=== PATIENT | female | born 1995 | race Caucasian/White ===

== ENCOUNTER → 2016-11-02 | Outpatient (CLI) | payer MEDICAID ==
[~2016-11-02] MED LIST: ALPRAZOLAM0.25 M2 PO; ALPRAZOLAM0.5 M3 PO; AMOXIL500 MG PO; BENZONATATE100 MG PO; CIPRO 500MG TA500 MG PO; CIPROFLOXACIN500 MG PO; CLARITIN-D 12HR1 T12 PO; ESCITALOPRAM10 M1 PO; FERROUS SULFATE65 MG PO; FLAGYL 250MG.250 MG PO; FLAGYL500 M1 PO; FLEXERIL10 MG PO; HEARTBURN; HYDROCHLOROTHIA25 M1 PO; IRON TABLETS325 MG PO; KEFLEX 500MG.500 MG PO; LETAIRIS5 MG PO; MOTRIN400 MG PO; NAPROSYN 375MG375 MG PO; NOMEDS XX; PNV PRENATAL PL1 TAB PO; PRENATAL PLUS1 TA1 PO; PRILOSEC OTC20 MG PO; PROVENTIL0.09 MG/A1 IH; SILDENAFIL CITR20 MG PO; TESSALON PERLE100 M1 PO; ZITHROMAX Z-PA250 M2 PO; ZOFRAN4 MG PO
[2016-11-02 17:21] LABS: AMPHETAMINES/METAMPHETAMINES NEGATIVE ng/mL (<1000)
== END ==
LOC: LAB 16:35
PROVIDERS: Emergency Medicine
DX: Z79.899 Other long term (current) drug therapy (principal)

== ENCOUNTER → 2017-01-02 | Outpatient (CLI) | payer MEDICAID ==
[~2017-01-02] MED LIST changes: +GABAPENTIN300 M1 PO; +POTASSIUM CHLO10 MEQ PO
[2017-01-02 16:28] LABS: AMPHETAMINES/METAMPHETAMINES NEGATIVE ng/mL (<1000)
== END ==
LOC: LAB 15:40
PROVIDERS: Emergency Medicine
DX: Z79.899 Other long term (current) drug therapy (principal)

== ENCOUNTER 2017-01-09 00:52 | Emergency (ER) | payer MEDICAID ==
[~2017-01-09] VITALS: Ht 172.7 cm; Wt 100.2 kg
[~2017-01-09 00:52] MED LIST changes: -GABAPENTIN300 M1 PO; -POTASSIUM CHLO10 MEQ PO
[2017-01-09] MEDS ORDERED: POTASSIUM CHLO10 MEQ PO (01:03)
[2017-01-09] MEDS ORDERED: GABAPENTIN300 M1 PO (01:03)
--- NOTE | 2017-01-09 01:16 | Emergency Room Report ---
History of Present Illness Time Seen by MD Edwards Presenting Problem in Triage Pt arrived:Walked Presenting Problem:PT STATES SHE "HAS PULMONARY HYPERTENSION AND SHE STOPPED TAKING HER MEDS A WHILE BACK, AND HAS NOW RESUMED THEM" PT STATES SHE IS HAVING EXERTIONAL SOB. 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 N Clinical Suspician of Infection? N Mental Status: 1 - Regular (Normal Baseline) Sepsis Risk:Possible Sepsis Risk Have you (or family members/close friends) recently traveled outside the [place]? N If Yes, where/when: Have you had exposure to infectious disease within the past month? TB? Other? Specify: Source patient, RN notes reviewed, family, old records Exam Limitations no limitations Comment pt with known pul htn but has been noncompliant with meds and follow up - no fever or chest pain Cardiac Chest Pain Chest pain indicative of cardiac No Timing/Duration this evening Severity moderate ALLERGIES Coded Allergies: adhesive (Severe, S-BLISTERING WELTS 08/25/16) Home Medications Active Scripts ALBUTEROL (Proventil Hfa Inhaler) 1-2 PUFF IH Q4-6H PRN #1 CAN Ref 1 Prov: 08/25/16 Reported Medications Alprazolam 0.5 MG PO BID #60 Sildenafil Citrate (Sildenafil) 20 MG PO TID 30 Days Ambrisentan (Letairis) 5 MG PO DAILY 30 Days Escitalopram Oxalate 10 MG PO DAILY 30 Days Potassium Chloride (POTASSIUM CHLORIDE 10mEq CAP) 10 MEQ PO PRN PRN IF TAKING LASIX #60 Gabapentin 300 MG PO BID #90 History Medical History General CAD? No Angina: No [place]: No Hypertension? No Hyperlipidemia? No CHF? No DVT? No PE? No COPD? No Asthma? No Anemia? No GERD? No Gastric ulcers? No GI Bleed? No Hernia? No Thyroid Problems? No Hypothyroidism? No CVA? No Seizures? No Diabetes? No Renal Insuffiency? No End Stage Renal Disease? No UTI? No Stones? No BPH? No GB Disease: No Nephritic Syndrome? No Asplenia? No Hepatitis? No Sickle Cell Disease? No Arthritis? No Migraines? No Cataracts? No Glaucoma? No MRSA? No HIV? No TB? No Anxiety? No Depression? No Cancer? No More? 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 Respiratory see HPI, denies cough, shortness of breath, denies wheezing Cardiovascular see HPI, denies chest pain, palpitations, denies syncope Gastrointestinal denies diarrhea, denies vomiting Genitourinary denies: dysuria, frequency, hesitancy, hematuria. Musculoskeletal denies back pain, denies joint pain, denies joint swelling, denies neck pain Skin denies rash Psychiatric/Neurological denies headache, denies seizure Physical Exam Vital Signs Vital Signs Date Time Temp Pulse Resp B/P Pulse O2 O2 Flow FiO2 Ox Delivery Rate 01/09 0236 118 20 123/67 97 01/09 0148 98.7 117 20 129/70 98 01/09 0058 98.7 104 20 143/86 98 - WBC >12,000 or <4,000 or 10% bands? 2 or more SIRS Criteria Met? B/P:123/67 MAP:105 Creatinine >2.0? UA output<0.5ml/kg/hr for 2 hrs? Platelet count >100,000? Lactate >2.0mmol/1? INR >1.2 or PTT > than 60 sec? Evidence of Organ Dysfunction? Provider documented clinical suspician of infection? N Sepsis Criteria Count: 2 Sepsis Risk: Possible Sepsis Risk General Appearance no apparent distress Eye Exam - bilateral eye PERRL, bilateral eye EOMI Ear, Nose, Throat normal ENT inspection Neck supple Respiratory Status No: respiratory distress. Lung Sounds bilateral: lungs clear. 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 No Results/Orders Laboratory Tests 01/09/17114: Sodium 140, Potassium 3.6, Chloride 106, Carbon Dioxide 24, BUN 13, Creatinine 1.0, Estimated Creat Clear 142, Estimated GFR (MDRD) 71, Glucose 85, Calcium 9.2 , Total Bilirubin 0.4, AST 9 L, ALT 22, Alkaline Phosphatase 80, Creatine Kinase 55, CK-MB (CK-2) Rel Index 2.9, CK and CKMB Interp 1.6, Troponin I 0.23 H, Total Protein 7.3, Albumin 3.8, Globulin 3.5 H, Albumin/Globulin Ratio 1.1, WBC 11.1, RBC 5.20, Hgb 12.9, Hct 41.8, MCV 80.3 L, RDW 16.4, Plt Count 200, MPV 9.9, Gran % 58.4, Gran # 6.5, Lymphocytes % 32.2, Monocytes % 5.7, Eosinophils % 2.9, Basophils % 0.8, Lymphocytes # 3.6, Monocytes # 0.6, Eosinophils # 0.3, Basophils # 0.1, PUBS MCHC 30.6 L, MCH 24.6 L, Urine Color YELLOW, Urine Appearance CLEAR, Urine pH 6.0, Ur Specific [place] 1.015, Urine Protein NEGATIVE, Urine Ketones NEGATIVE, Urine Blood TRACE-INTACT, Urine Nitrate NEGATIVE, Urine Bilirubin NEGATIVE, Urine Urobilinogen 1.0, Ur Leukocyte Esterase 1+ H, Urine RBC 3-5, Urine WBC 3-5, Ur Squamous Epith Cells 3-5, Urine Bacteria 1+, Urine Glucose NEGATIVE Current Medication Orders Sig/Kay Start time Last Medication Dose Route Stop Time Status Admin Sodium Chloride 10 ML PRN PRN 01/09 115 AC IV 01/10 105 Orders Procedure Date/time Status ELECTROCARDIOGRAM REQUEST 01/09 105 Active CHEST(2 VIEWS-NOT PORTABLE) 01/09 105 Active IV SALINE LOCK 01/09 105 Active URINALYSIS/COMPLETE 01/09 105 Complete URINE 01/09 105 Complete COMPLETE METABOLIC PANEL 01/09 105 Complete CBC WITH AUTO DIFF 01/09 105 Complete CARDIAC ENZYMES 01/09 105 Complete CM/EKG CM/comfort filler Rhythm Sinus Tachycardia EKG non-spec. ST/Twave chgs XRAY/CT/US XRAY/CT/US XRAY chest XR interpretation by reviewed by me Xray Results abnormal Departure Departure Time of Disposition 258 Disposition DC Home or Self Care(routine) Clinical Impression Primary Impression: Pulmonary hypertension Condition STABLE Referrals Jos FUNEZ,Jayant Zimmer (Family) Patient Instructions Pulmonary Hypertension -- Adult Additional Instructions use meds and call pcp for follow up Discharge Counseling Counseled pt/family regarding diagnosis, test results, follow up needs ED Critical Care Critical Care No at 0301
--- NOTE | 2017-01-09 01:16 | Emergency Room Report ---
History of Present Illness Time Seen by MD Edwards Presenting Problem in Triage Pt arrived:Walked Presenting Problem:PT STATES SHE "HAS PULMONARY HYPERTENSION AND SHE STOPPED TAKING HER MEDS A WHILE BACK, AND HAS NOW RESUMED THEM" PT STATES SHE IS HAVING EXERTIONAL SOB. 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 N Clinical Suspician of Infection? N Mental Status: 1 - Regular (Normal Baseline) Sepsis Risk:Possible Sepsis Risk Have you (or family members/close friends) recently traveled outside the [place]? N If Yes, where/when: Have you had exposure to infectious disease within the past month? TB? Other? Specify: Source patient, RN notes reviewed, family, old records Exam Limitations no limitations Comment pt with known pul htn but has been noncompliant with meds and follow up - no fever or chest pain Cardiac Chest Pain Chest pain indicative of cardiac No Timing/Duration this evening Severity moderate ALLERGIES Coded Allergies: adhesive (Severe, S-BLISTERING WELTS 08/25/16) Home Medications Active Scripts ALBUTEROL (Proventil Hfa Inhaler) 1-2 PUFF IH Q4-6H PRN #1 CAN Ref 1 Prov: 08/25/16 Reported Medications Alprazolam 0.5 MG PO BID #60 Sildenafil Citrate (Sildenafil) 20 MG PO TID 30 Days Ambrisentan (Letairis) 5 MG PO DAILY 30 Days Escitalopram Oxalate 10 MG PO DAILY 30 Days Potassium Chloride (POTASSIUM CHLORIDE 10mEq CAP) 10 MEQ PO PRN PRN IF TAKING LASIX #60 Gabapentin 300 MG PO BID #90 History Medical History General CAD? No Angina: No [place]: No Hypertension? No Hyperlipidemia? No CHF? No DVT? No PE? No COPD? No Asthma? No Anemia? No GERD? No Gastric ulcers? No GI Bleed? No Hernia? No Thyroid Problems? No Hypothyroidism? No CVA? No Seizures? No Diabetes? No Renal Insuffiency? No End Stage Renal Disease? No UTI? No Stones? No BPH? No GB Disease: No Nephritic Syndrome? No Asplenia? No Hepatitis? No Sickle Cell Disease? No Arthritis? No Migraines? No Cataracts? No Glaucoma? No MRSA? No HIV? No TB? No Anxiety? No Depression? No Cancer? No More? 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 Respiratory see HPI, denies cough, shortness of breath, denies wheezing Cardiovascular see HPI, denies chest pain, palpitations, denies syncope Gastrointestinal denies diarrhea, denies vomiting Genitourinary denies: dysuria, frequency, hesitancy, hematuria. Musculoskeletal denies back pain, denies joint pain, denies joint swelling, denies neck pain Skin denies rash Psychiatric/Neurological denies headache, denies seizure Physical Exam Vital Signs Vital Signs Date Time Temp Pulse Resp B/P Pulse O2 O2 Flow FiO2 Ox Delivery Rate 01/09 0236 118 20 123/67 97 01/09 0148 98.7 117 20 129/70 98 01/09 0058 98.7 104 20 143/86 98 - WBC >12,000 or <4,000 or 10% bands? 2 or more SIRS Criteria Met? B/P:123/67 MAP:105 Creatinine >2.0? UA output<0.5ml/kg/hr for 2 hrs? Platelet count >100,000? Lactate >2.0mmol/1? INR >1.2 or PTT > than 60 sec? Evidence of Organ Dysfunction? Provider documented clinical suspician of infection? N Sepsis Criteria Count: 2 Sepsis Risk: Possible Sepsis Risk General Appearance no apparent distress Eye Exam - bilateral eye PERRL, bilateral eye EOMI Ear, Nose, Throat normal ENT inspection Neck supple Respiratory Status No: respiratory distress. Lung Sounds bilateral: lungs clear. 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 No Results/Orders Laboratory Tests 01/09/17114: Sodium 140, Potassium 3.6, Chloride 106, Carbon Dioxide 24, BUN 13, Creatinine 1.0, Estimated Creat Clear 142, Estimated GFR (MDRD) 71, Glucose 85, Calcium 9.2 , Total Bilirubin 0.4, AST 9 L, ALT 22, Alkaline Phosphatase 80, Creatine Kinase 55, CK-MB (CK-2) Rel Index 2.9, CK and CKMB Interp 1.6, Troponin I 0.23 H, Total Protein 7.3, Albumin 3.8, Globulin 3.5 H, Albumin/Globulin Ratio 1.1, WBC 11.1, RBC 5.20, Hgb 12.9, Hct 41.8, MCV 80.3 L, RDW 16.4, Plt Count 200, MPV 9.9, Gran % 58.4, Gran # 6.5, Lymphocytes % 32.2, Monocytes % 5.7, Eosinophils % 2.9, Basophils % 0.8, Lymphocytes # 3.6, Monocytes # 0.6, Eosinophils # 0.3, Basophils # 0.1, PUBS MCHC 30.6 L, MCH 24.6 L, Urine Color YELLOW, Urine Appearance CLEAR, Urine pH 6.0, Ur Specific [place] 1.015, Urine Protein NEGATIVE, Urine Ketones NEGATIVE, Urine Blood TRACE-INTACT, Urine Nitrate NEGATIVE, Urine Bilirubin NEGATIVE, Urine Urobilinogen 1.0, Ur Leukocyte Esterase 1+ H, Urine RBC 3-5, Urine WBC 3-5, Ur Squamous Epith Cells 3-5, Urine Bacteria 1+, Urine Glucose NEGATIVE Current Medication Orders Sig/Kay Start time Last Medication Dose Route Stop Time Status Admin Sodium Chloride 10 ML PRN PRN 01/09 115 AC IV 01/10 105 Orders Procedure Date/time Status ELECTROCARDIOGRAM REQUEST 01/09 105 Active CHEST(2 VIEWS-NOT PORTABLE) 01/09 105 Active IV SALINE LOCK 01/09 105 Active URINALYSIS/COMPLETE 01/09 105 Complete URINE 01/09 105 Complete COMPLETE METABOLIC PANEL 01/09 105 Complete CBC WITH AUTO DIFF 01/09 105 Complete CARDIAC ENZYMES 01/09 105 Complete CM/EKG CM/porcelain waxer Rhythm Sinus Tachycardia EKG non-spec. ST/Twave chgs XRAY/CT/US XRAY/CT/US XRAY chest XR interpretation by reviewed by me Xray Results abnormal Departure Departure Time of Disposition 258 Disposition DC Home or Self Care(routine) Clinical Impression Primary Impression: Pulmonary hypertension Condition STABLE Referrals Jos FUNEZ,Jayant Zimmer (Family) Patient Instructions Pulmonary Hypertension -- Adult Additional Instructions use meds and call pcp for follow up Discharge Counseling Counseled pt/family regarding diagnosis, test results, follow up needs ED Critical Care Critical Care No at 0301
[2017-01-09 01:54] LABS: URINE BILIRUBIN - DIPSTICK NEGATIVE (NEG); URINE BLOOD TRACE-INTACT (NEG)
[2017-01-09 02:01] LABS: LYMPH # 3.6 K/mm3 (0.7-4.5); LYMPH % 32.2 % (10-50.0)
[2017-01-09 02:05] LABS: HEMOGLOBIN 12.9 g/dL (12.2-16.2)
[2017-01-09 03:07] VITALS: BP 124/70
--- NOTE | 2017-01-09 07:54 | RADIOLOGY REPORT PS360 ---
CHEST(2 VIEWS-NOT PORTABLE) HISTORY: Shortness of breath SOB ORDERING PHYSICIAN: Asher Arguello MD PATIENT AGE: 21 years COMPARISON: 08/25/2016 FINDINGS: The heart size is unremarkable. The delma are prominent bilaterally. This is likely related to underlying pulmonary vascularity as this did have a similar appearance on older exam of 04/29/2011. 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 This could result and some overcirculation. No lobar consolidation or collapse. No acute bony anomalies. IMPRESSION: 1. Prominent delma which is felt to be related to prominent pulmonary arterial vasculature. 2. 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 This may result in dyspnea, chest pain, and palpitations. Clinical correlation and cardiology consult suggested.
== END 2017-01-09 03:08 | disposition home or self-care (01) ==
LOC: ER 00:52
PROVIDERS: Emergency Medicine
DX: I27.2 Other secondary pulmonary hypertension (principal); Z72.0 Tobacco use

== ENCOUNTER → 2017-04-01 | Outpatient (CLI) | payer MEDICAID ==
[~2017-04-01] MED LIST changes: +GABAPENTIN300 M1 PO; +POTASSIUM CHLO10 MEQ PO
[2017-04-01 20:20] LABS: AMPHETAMINES/METAMPHETAMINES NEGATIVE ng/mL (<1000)
== END ==
LOC: LAB 16:10
PROVIDERS: Emergency Medicine
DX: Z79.899 Other long term (current) drug therapy (principal)

== ENCOUNTER 2017-05-09 22:18 | Emergency (ER) | payer MEDICAID ==
[~2017-05-09] VITALS: Ht 172.7 cm; Wt 101.2 kg
--- NOTE | 2017-05-09 22:35 | Emergency Room Report ---
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 N Clinical Suspician of Infection? N Mental Status: 1 - Regular (Normal Baseline) Sepsis Risk:Low Sepsis Risk Have you (or family members/close friends) recently traveled outside the [place]? N If Yes, where/when: Have you had exposure to infectious disease within the past month? N TB? Other? Specify: Source patient, RN notes reviewed, family, old records Exam Limitations no limitations Comment lt flank pain with nausea today with no diarrhea Cardiac Chest Pain Chest pain indicative of cardiac No Timing/Duration this evening Severity moderate ALLERGIES Coded Allergies: adhesive (Severe, S-BLISTERING WELTS 08/25/16) Home Medications Active Scripts ALBUTEROL (Proventil Hfa Inhaler) 1-2 PUFF IH Q4-6H PRN #1 CAN Ref 1 Prov: 08/25/16 Reported Medications Alprazolam 0.5 MG PO BID #60 Sildenafil Citrate (Sildenafil) 20 MG PO TID 30 Days Ambrisentan (Letairis) 5 MG PO DAILY 30 Days Escitalopram Oxalate 10 MG PO DAILY 30 Days Potassium Chloride (POTASSIUM CHLORIDE 10mEq CAP) 10 MEQ PO PRN PRN IF TAKING LASIX #60 Gabapentin 300 MG PO BID #90 History Medical History General CAD? No Angina: No [place]: No Hypertension? No Hyperlipidemia? No CHF? No DVT? No PE? No COPD? No Asthma? No Anemia? No GERD? No Gastric ulcers? No GI Bleed? No Hernia? No Thyroid Problems? No Hypothyroidism? No CVA? No Seizures? No Diabetes? No Renal Insuffiency? No End Stage Renal Disease? No UTI? No Stones? No BPH? No GB Disease: No Nephritic Syndrome? No Asplenia? No Hepatitis? No Sickle Cell Disease? No Arthritis? No Migraines? No Cataracts? No Glaucoma? No MRSA? No HIV? No TB? No Anxiety? No Depression? No Cancer? No More? 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 Respiratory denies cough, denies shortness of breath, denies wheezing Cardiovascular denies chest pain, denies syncope Gastrointestinal see HPI, abdominal pain, denies diarrhea, denies vomiting Genitourinary denies: dysuria, frequency, hesitancy, hematuria. Musculoskeletal denies back pain, denies joint pain, denies joint swelling, denies neck pain Skin denies rash Psychiatric/Neurological denies headache, denies seizure Physical Exam Vital Signs Vital Signs Date Time Temp Pulse Resp B/P Pulse O2 O2 Flow FiO2 Ox Delivery Rate 05/10 0109 100.7 105 18 103/61 96 05/09 2226 100.7 112 18 136/76 94 - WBC >12,000 or <4,000 or 10% bands? 2 or more SIRS Criteria Met? B/P:103/61 MAP:96 Creatinine >2.0? UA output<0.5ml/kg/hr for 2 hrs? Platelet count >100,000? Lactate >2.0mmol/1? INR >1.2 or PTT > than 60 sec? Evidence of Organ Dysfunction? Provider documented clinical suspician of infection? N Sepsis Criteria Count: 1 Sepsis Risk: Low Sepsis Risk General Appearance no apparent distress Eye Exam - bilateral eye PERRL, bilateral eye EOMI Ear, Nose, Throat normal ENT inspection Neck supple Respiratory Status No: respiratory distress. 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 No Results/Orders Laboratory Tests 05/09/172249: Urine Color YELLOW, Urine Appearance CLEAR, Urine pH 6.0, Ur Specific [place] 1.020, Urine Protein 2+ H, Urine Ketones NEGATIVE, Urine Blood 3+ H, Urine Nitrate NEGATIVE, Urine Bilirubin NEGATIVE, Urine Urobilinogen 1.0, Ur Leukocyte Esterase 2+ H, Urine RBC 5-10, Urine WBC 10-20, Urine Bacteria 1+, Urine Mucus 1+, Urine Glucose NEGATIVE 05/09/172248: Sodium 136, Potassium 3.0 L, Chloride 105, Carbon Dioxide 21 L, BUN 8, Creatinine 1.0, Estimated Creat Clear 143, Estimated GFR (MDRD) 71, Glucose 99, Calcium 8.3 L, Total Bilirubin 0.8, AST 8 L, ALT 17, Alkaline Phosphatase 79, Total Protein 6.6, Albumin 3.2 L, Globulin 3.4 H, Albumin/Globulin Ratio 0.9 L, Amylase 19 L, Lipase 60 L, WBC 11.2, RBC 4.71, Hgb 12.0 L, Hct 38.0, MCV 80.6 L, RDW 16.6, Plt Count 121 L, MPV 12.5 H, Gran % 78.7, Gran # 8.8 H, Lymphocytes % 15.6, Monocytes % 5.1, Eosinophils % 0.4, Basophils % 0.3, Lymphocytes # 1.8, Monocytes # 0.6, Eosinophils # 0.1, Basophils # 0.0, PUBS MCHC 31.5 L, MCH 25.4 L Current Medication Orders Sig/Kay Start time Last Medication Dose Route Stop Time Status Admin Sodium Chloride 50 ML .STK-MED ONE 05/10 133 DC IV Ketorolac 0 .STK-MED ONE 05/10 132 DC Tromethamine .ROUTE Ceftriaxone Sodium 1 GM ONCE ONE 05/10 130 AC Sodium Chloride 50 ML IV 05/10 0159 Ketorolac 30 MG ONCE ONE 05/10 130 DC Tromethamine IV 05/10 131 Orders Procedure Date/time Status DIET-NOTHING BY MOUTH 05/[address] ABD & PELVIS W/O CONTRAST 05/10 0003 Active CULTURE, URINE 05/[address] SCAN REQ 05/09 2245 Complete IV SALINE LOCK 05/09 2238 Active LIPASE 05/09 2238 Complete CBC WITH AUTO DIFF 05/09 2238 Complete CHEM 12 PROFILE 05/09 2238 Complete AMYLASE 05/09 2238 Complete URINALYSIS/COMPLETE 05/09 2236 Complete URINE 05/09 2236 Complete XRAY/CT/US XRAY/CT/US CT abdomen, pelvis CT interpretation by discussed w/radiologist Time results known: 131 CT Results abnormal (see report) Departure Departure Time of Disposition 131 Disposition DC Home or Self Care(routine) Clinical Impression Primary Impression: UTI (urinary tract infection) Qualifiers: Urinary tract infection type: acute cystitis Hematuria presence: without hematuria Qualified Code: N30.00 - Acute cystitis without hematuria Condition STABLE Referrals Jos FUNEZ,Jayant Zimmer (Family) Patient Instructions DI for Urinary Tract Infection (UTI) Additional Instructions fluids and use meds and see pcp saturday Discharge Counseling Counseled pt/family regarding diagnosis, test results, medications/RX, follow up needs Prescriptions Current Visit Scripts Ciprofloxacin HCl (Cipro 500MG TAB) 500 MG PO BID #14 TAB ED Critical Care Critical Care No at 0134
[2017-05-09 23:05] LABS: URINE BLOOD 3+ (NEG)
[2017-05-09 23:11] LABS: URINE BILIRUBIN - DIPSTICK NEGATIVE (NEG)
[2017-05-09 23:25] LABS: LYMPH # 1.8 K/mm3 (0.7-4.5); LYMPH % 15.6 % (10-50.0)
[2017-05-10] MEDS ORDERED: CIPRO 500MG TA500 MG PO (01:33)
[2017-05-10 01:54] VITALS: BP 110/68
--- NOTE | 2017-05-10 06:56 | RADIOLOGY REPORT PS360 ---
CT ABD PELVIS W/O CONTRAST CLINICAL INDICATION: Left flank pain, abdominal pain FLANK PAIN ORDERING PHYSICIAN: Asher Arguello MD PATIENT AGE: 21 years COMPARISON: 03/22/2016 TECHNIQUE: Axial images obtained with sagittal and coronal reformats. PROCEDURE: Oral Contrast: None IV Contrast: None . FINDINGS: Lung bases are clear. The liver, gallbladder, spleen, and adrenal glands and pancreas are unremarkable. There are old or at least 2 stones in the left kidney one in the upper pole and one in the lower pole each at approximately 6 mm. There is mild stranding left perinephric renal fat. There is minimal prominence of the proximal aspect of the left ureter with minimal stranding of the proximal periureteral fat. A definite ureteral calculus is not identified. Recently passed stone is a consideration. Urinary bladder has an unremarkable appearance. Small nodes are present in the retroperitoneum on the left nonspecific No evidence of appendicitis, intestinal obstruction, or free air or diverticulitis. There is mild thickening versus nondistention of the descending colon There is a 7 x 6 cm right adnexal mass likely representing an ovarian cyst. There is a 19 be present. There is minimal amount fluid in the cul-de-sac. No acute bony anomalies. IMPRESSION: 1. Left nephrolithiasis with minimal prominence of the left proximal ureter and minimal stranding the left periureteral and perinephric fat which may be related to recently passed ureteral stone or urinary tract infection/polynephritis. 2. 7 cm right cystic adnexal mass consistent with right ovarian cyst. Consider pelvic ultrasound for further evaluation.
== END 2017-05-10 01:56 | disposition home or self-care (01) ==
LOC: ER 22:18
PROVIDERS: Emergency Medicine
DX: N30.00 Acute cystitis without hematuria (principal)

== ENCOUNTER 2017-05-21 14:22 | Emergency (ER) | payer MEDICAID ==
[~2017-05-21] VITALS: Ht 175.3 cm; Wt 101.2 kg
--- NOTE | 2017-05-21 14:58 | [facility] Report ---
See Addendum History of Present Issue Date/Time Seen by Provider 05/21/17 1440 Visit Reason Pt arrived:Walked Presenting Problem:PT C/O SORE THROAT, VOMITING, AND BODYACHES Location if Accident: Onset of symptoms date/time:/ or onset unknown for:MEDICAL HX UNKNOWN Have you (or family members/close friends) recently traveled outside the [place]? N If Yes, where/when: Have you had exposure to infectious disease within the past month? TB? Other? Specify: c/o "I think I have strep". Son tested positive , pt's symptoms started Saturday, 4 days ago and now another child tested positive today w/ several other family members getting seen for same symptoms. Intermittent fever, aches, chills , sore throat, nausea. Vomited once last night and once this morning. nauseated now. Litte girls w/ same symptoms now. Hasn't taken or tried anything for symptoms. Denies difficulty swallowing "just painful". Source patient Exam Limitations no limitations ALLERGIES Coded Allergies: adhesive (Severe, S-BLISTERING WELTS 08/25/16) Home Medications Active Scripts Ciprofloxacin HCl (Cipro 500MG TAB) 500 MG PO BID #14 TAB Prov: 05/10/17 ALBUTEROL (Proventil Hfa Inhaler) 1-2 PUFF IH Q4-6H PRN #1 CAN Ref 1 Prov: 08/25/16 Reported Medications Alprazolam 0.5 MG PO BID #60 Sildenafil Citrate (Sildenafil) 20 MG PO TID 30 Days Ambrisentan (Letairis) 5 MG PO DAILY 30 Days Escitalopram Oxalate 10 MG PO DAILY 30 Days Potassium Chloride (POTASSIUM CHLORIDE 10mEq CAP) 10 MEQ PO PRN PRN IF TAKING LASIX #60 Gabapentin 300 MG PO BID #90 History Medical History General CAD? No Angina: No NM: No Hypertension? No Hyperlipidemia? No CHF? No DVT? No PE? No COPD? No Asthma? No Anemia? No GERD? No Gastric ulcers? No GI Bleed? No Hernia? No Thyroid Problems? No Hypothyroidism? No CVA? No Seizures? No Diabetes? No Renal Insuffiency? No UTI? No Stones? No BPH? No GB Disease: No Nephritic Syndrome? No Asplenia? No Hepatitis? No Sickle Cell Disease? No Arthritis? No Migraines? No Cataracts? No Glaucoma? No MRSA? No HIV? No TB? No Anxiety? No Depression? No Cancer? No More? Yes Additional hx: PULMONARY HYPERTENSION Immunization HX DT/Tetanus Unknown Flu Refused Pneumonia Refuses Surgical Hx Previous Surgery?Y X 1 Family History Family HX Diabetes No CAD No Hypertension Yes Hyperlipidemia No Cancer No TB No Social History Smoking Hx Smoker: Current Every Day Smoker Tobacco: Yes Type Cigarettes Packs/day < 1 Pack Alcohol Alcohol: No Review of Systems All Other Systems Reviewed and Negative Constitutional see HPI Eyes denies drainage ENT see HPI. denies: ear pain, nose discharge, nose congestion. Respiratory denies cough Gastrointestinal denies abdominal pain, denies diarrhea Musculoskeletal see HPI Skin denies rash Psychiatric/Neurological headache (intermittent, generalized) Physical Exam Vital Signs Vital Signs Date Time Temp Pulse Resp B/P Pulse O2 O2 Flow FiO2 Ox Delivery Rate 05/21 1451 97.8 104 20 119/73 98 General Appearance no apparent distress, unkept appearance Eye Exam - bilateral eye normal exam Ear, Nose, Throat pharyngeal erythema, tonsillar swelling (2-3+, no exudate), ayde EACs w/ minimal cerumen, TMs appear normal, ayde nares normal Neck non-tender, supple Respiratory Status No: respiratory distress, productive cough, non productive cough. Lung Sounds anterior: lungs clear. posterior: lungs clear. bilateral: lungs clear. Cardiovascular no peripheral edema, no murmur, tachycardia Gastrointestinal normal bowel sounds, non tender, soft Neurologic alert, oriented x 3 Skin normal color, warm/dry Lymphatic no adenopathy Medical Decision Making LABS/Meds/Orders Pt receiving controlled substance in ED? No Results/Orders Laboratory Tests 05/21/17 1450: Group A Strep Screen NOT DETECTED Current Medication Orders Sig/Kay Start time Last Medication Dose Route Stop Time Status Admin Ondansetron HCl 0 .STK-MED ONE 05/21 1518 DC .ROUTE Ondansetron HCl 4 MG ONCE ONE 05/21 1515 DC 05/21 SL 05/21 151 1518 Orders Procedure Date/time Status [facility] STREP SCREEN 05/21 145 Complete Departure Departure Time of Disposition 1530 Disposition DC Home or Self Care(routine) Clinical Impression Primary Impression: Tonsillitis Secondary Impressions: Exposure to strep throat Condition STABLE Referrals Jos FUNEZ,Jayant Zimmer (Family) IMMEDIATELY for new or worsening symptoms OR no noticeable improvement over the next 24-48 hours. 911 for difficulty breathing or swallowing Patient Instructions DI for Strep Throat Additional Instructions * Your strep test was negative but given your exam today and multiple exposures within the last week, I am treating you like you have strep throat today. * Your throat swab was sent for culture. Those results are typically sent to your primary care. Be sure to follow up in 2-3 days if no improvement so they can review those results and treat if necessary. If you don't have primary care, I recommend you get one but in the mean time, you will have to return to a walk in clinic. * Start antibiotic TANA and be sure to take as ordered for the FULL length of time although you should start to feel better in 24-48 hours. * change toothbrush and toothpaste 24-48 hours after starting antibiotic * Monitor Temp. Tylenol every 4 hours as needed and/or ibuprofen every 6 hours as needed (as long as your primary care doctor has told you that it is ok to take both) for fever/aches/pain. ER if fever no less than 101 despite tylenol and Ibuprofen * Encourage fluids, water, gatorade, powerade, pedialyte if infant/toddler/child * cold fluids, popsicles, ice cream feel good * you are contagious until you have taken the antibiotic for 24 hours. No school tomorrow. * Avoid kissing anyone, including parents. No eating or drinking after anyone. You are contagious. Discharge Counseling Counseled pt/family regarding diagnosis, test results, medications/RX, home care, follow up needs Prescriptions Current Visit Scripts AMOXICILLIN (Amoxicillin 875MG Tab) 875 MG PO BID #20 TAB at 1535
[2017-05-21 16:22] VITALS: BP 119/73
--- OUTSIDE RECORDS SUMMARY | 2017-05-30 06:53 | External Medical Summary Rpt | CCD ---
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 IT 09 -0 -1 00 00 TE ti HR 37 8- 0- 0 01 ve OM 14 20 20 16 AI YC 65 17 17 57 D IN 6 68 PH AR 25 MA 0 CY MG #3 TA 93 BL 8 ET VE 00 01 02 18 30 00 RI Ac NT 17 -0 -1 .0 00 TE ti OL 30 8- 0- 00 01 ve IN 68 20 20 16 AI 22 17 17 57 D HF 0 69 PH A AR 90 MA CY MC G #3 IN 93 CISNEROS 8 LE R SI 65 01 02 90 30 00 CV Ac LD 86 -1 -1 .0 00 S ti EN 20 6- 0- 00 07 CA ve AF 68 20 20 88 RE IL 89 17 17 30 MA 0 22 RK 20 MG TA BL ET LE 61 01 02 30 30 00 CV Ac TA 95 -1 -1 .0 00 S ti IR 80 6- 0- 00 07 CA ve IS 80 20 20 87 RE 5 10 17 17 86 MA 1 37 RK MG TA BL ET AC 00 12 01 20 10 00 RI Ac ET 40 -1 -1 .0 00 TE ti AM 60 4- 3- 00 01 ve IN 48 20 20 16 AI OP 41 16 17 26 D HE 0 09 PH N- AR CO MA D CY #3 #3 TA 93 BL 8 ET AL 00 12 01 60 30 00 RI Ac AL 37 -1 -1 .0 00 TE ti AZ 84 4- 3- 00 01 ve OL 00 20 20 16 AI AM 30 16 17 26 D 5 10 PH 0. AR 5 MA MG CY TA #3 BL 93 ET 8 ES 65 12 01 30 30 00 RI Ac CI 86 -1 -1 .0 00 TE ti TA 20 4- 3- 00 01 ve LO 37 20 20 16 AI AL 40 16 17 26 D AM 1 11 PH AR 10 MA CY MG #3 TA 93 BL 8 ET SI 65 12 01 90 30 00 CV Ac LD 86 -1 -1 .0 00 S ti EN 20 9- 3- 00 07 CA ve AF 68 20 20 88 RE IL 89 16 17 30 MA 0 22 RK 20 MG TA BL ET LE 61 12 01 30 30 00 CV Ac TA 95 -1 -1 .0 00 S ti IR 80 9- 3- 00 07 CA ve IS 80 20 20 87 RE 5 10 16 17 86 MA 1 37 RK MG TA BL ET VE 00 12 01 18 25 00 RI Ac NT 17 -0 -0 .0 00 TE ti OL 30 7- 9 00 01 ve IN 68 20 20 15 AI 22 16 17 38 D HF 0 38 PH A AR 90 MA CY MC G #3 IN 93 CISNEROS 8 LE R Ib 62 07 0 No up 58 -2 ro 40 6- Lo fe 74 20 ng n 60 13 er 40 1 0M Ac G ti Ta ve bl et ON 00 07 0 No DA 37 -2 NS 87 6- Lo ET 73 20 ng RO 29 13 er N 3 OD Ac T ti 4 ve MG TA BL ET NA 00 06 06 60 30 RI 88 CL Ac AL 09 -0 -0 .0 TE 66 AR ti OX 30 8- 8- 00 39 KE ve EN 14 20 20 AI 90 11 11 D DE 50 1 PH RE 0 AR K MG MA J CY TA BL 03 ET 93 8 # 03 93 MA 51 06 [address] Ac LA 67 -0 -0 .0 TE 64 EP ti TH 25 7- 7- 00 41 HE ve IO 27 20 20 AI NS N 70 11 11 D 0. 4 PH DO 5% AR N MA R LO CY TI ON 03 93 8 # 03 93 PE 00 05 [address] Ac RM 47 -2 -2 .0 TE 50 EP ti ET 25 7- 7- 00 08 HE ve HR 24 20 20 AI NS IN 26 11 11 D 7 PH DO 1% AR N MA R LO CY TI ON 93 8 # 03 93 AL 68 01 02 2 10 25 RI 86 CL Ac OC 22 -2 -2 .0 TE 78 AR ti TO 00 5- 3- 00 48 KE ve FO 14 20 20 AI AM 21 11 11 D DE -H 0 PH RE C AR K FO MA J AM CY 03 93 8 # 03 93 AL 68 01 01 2 10 25 RI 86 CL Ac OC 22 -2 -2 .0 TE 78 AR ti TO 00 5- 5- 00 48 KE ve FO 14 20 20 AI AM 21 11 11 D DE -H 0 PH RE C AR K FO MA J AM CY 03 93 8 # 03 93 IB 53 01 01 40 6 RI 86 CL Ac UP 74 -1 -2 .0 TE 71 AR ti RO 60 4- 0- 00 28 KE ve FE 46 20 20 AI N 40 11 11 D DE 40 5 PH RE 0 AR K MG MA J CY TA BL 03 ET 93 8 # 03 93 AM 65 11 11 [address] Ac OX 86 -1 -1 .0 TE 85 EP ti IC 20 6- 6- 00 19 HE ve IL 01 20 20 AI NS LI 60 10 10 D N 5 PH DO 25 AR N 0 MA R MG CY CA 03 PS 93 UL 8 E # 03 93 DI 00 11 11 [address] Ac PH 60 -1 -1 .0 TE 85 EP ti EN 33 6- 6- 00 21 HE ve HY [address] 92 10 10 D AM 1 PH DO IN AR N E MA R 25 CY MG 03 93 CA 8 PS # UL 03 E 93 ME 50 09 09 14 7 RI 85 CL Ac TR 11 -3 -3 .0 TE 21 AR ti ON 10 0- 0- 00 66 KE ve ID 33 20 20 AI AZ 40 10 10 D DE OL 1 PH RE E AR K 50 MA J 0 CY MG 03 TA 93 BL 8 ET # 03 93 FE 00 09 09 11 30 30 RI 84 CL Ac RR 67 -1 -1 .0 TE 99 AR ti OU 70 5- 5- 00 53 KE ve S 07 20 20 AI CHILDS 00 10 10 D DE LF 1 PH RE AT AR K E MA J 32 CY 5 MG 03 93 TA 8 BL # ET 03 93 ME 50 03 04 00 15 5 RI 35 CH Ac TR 11 -2 -0 .0 TE 74 ES ti ON 10 1- 9- 00 23 TN ve ID 33 20 20 AI UT AZ 40 09 09 D OL 1 PH NH E AR CH 50 M AE 0 #3 L MG 91 4 TA BL ET AL 00 03 03 00 8. 1 RI 35 CH Ac OM 78 -1 -2 00 TE 63 ES ti ET 11 2- 6- 0 02 TN ve CISNEROS 83 20 20 AI UT ZI 00 09 09 D NE 1 PH NH AR CH 25 M AE #3 L MG 91 4 TA BL ET CHILDS 00 12 01 00 14 7 RI 34 WI Ac LF 60 -1 -0 .0 TE 78 LS ti AM 35 8- 1- 00 74 ON ve ET 78 20 20 AI HO 12 08 09 D RO XA 8 PH BE ZO AR RT LE M C -T #3 MP 91 4 DS TA BL ET CE 65 12 12 00 14 7 RI 34 DA Ac FU 86 -0 -1 .0 TE 59 ti RO 20 1- 8- 00 23 S ve XI 03 20 20 AI KE ME 42 08 08 D NT 0 PH L AX AR ET M IL #3 91 25 4 0 MG TA B AZ 59 11 12 00 6. 5 RI 34 DA Ac IT 76 -1 -0 00 TE 46 ti HR 23 7- 4- 0 54 S ve OM 06 20 20 AI WI YC 00 08 08 D LL IN 1 PH IA AR M 25 M S 0 #3 MG 91 4 TA BL ET Vital Signs 07-14-2013 14:47 Name Value Interpretat Reference Comment ion Range BP 82 mm[Hg] Diastolic BP Systolic 137 mm[Hg] Heart 85 /min Rate/Pulse O2% 97 % Respiratory 20 /min Rate 05-28-2013 00:33 Name Value Interpretat Reference Comment ion Range BP 68 mm[Hg] Diastolic BP Systolic 127 mm[Hg] Heart 84 /min Rate/Pulse O2% 98 % Respiratory 18 /min Rate 05-27-2013 23:33 Name Value Interpretat Reference Comment ion Range BP 71 mm[Hg] Diastolic BP Systolic 123 mm[Hg] Heart 97 /min Rate/Pulse O2% 98 % Respiratory 16 /min Rate 03-13-2013 15:50 Name Value Interpretat Reference Comment ion Range BP 72 mm[Hg] Diastolic BP Systolic 125 mm[Hg] Heart 86 /min Rate/Pulse O2% 96 % Respiratory 20 /min Rate 03-13-2013 15:37 Name Value Interpretat Reference Comment ion Range BP 80 mm[Hg] Diastolic BP Systolic 101 mm[Hg] Heart 75 /min Rate/Pulse O2% 96 % Respiratory 20 /min Rate Results Labs Lab Lab Date Result Refere Interp Status Commen Order Detail nces retati t Range on Streptococcus pyogenes Ag [Presence] in Unspecified specimen (05-21-2017 14:50) Strepto NOT NOTDETE complet coccus 017 DETECTE CTED ed pyogene 14:50 D s Ag [Presen ce] in Unspeci fied specime n Urinalysis dipstick W Reflex Microscopic panel in Urine (05-09-2017 22:50) Bacteri 1+ O complet a 017 ed [Presen 22:50 ce] in Urine sedimen t by Light microsc opy Mucus 1+ OCC complet [Presen 017 ed ce] in 22:50 Urine sedimen t by Light microsc opy Erythro 5-10 0 complet cytes 017 ed [Presen 22:50 ce] in Urine sedimen t by Light microsc opy Leukocy 10-20 O complet ann 017 wbc/hpf ed [#/volu 22:50 me] in Urine Urinalysis dipstick W Reflex Microscopic panel in Urine (05-09-2017 22:50) Appeara CLEAR CLEAR complet nce of 017 ed Urine 22:50 Bilirub NEGATIV NEG complet in 017 E ed [Presen 22:50 ce] in Urine by Test strip Erythro 3+ NEG Abnorma complet cytes 017 l ed [Presen 22:50 ce] in Urine Color YELLOW YELLOW complet of 017 ed Urine 22:50 Ketones NEGATIV NEG complet 017 E ed [Presen 22:50 ce] in Urine by Automat ed test strip Mucus 2+ NEG Abnorma complet [Presen 017 l ed ce] in 22:50 Urine sedimen t by Light microsc opy Nitrite NEGATIV NEG complet 017 E ed [Presen 22:50 ce] in Urine by Test strip Urobili 1.0 NEG complet nogen 017 ed [Presen 22:50 ce] in Urine by Test strip Drugs identified in Urine by Screen method (04-01-2017 14:10) Ampheta NEGATIV <1000 complet mine 017 E ed [Presen 14:10 ce] in Urine by Screen method 11-Hydr NEGATIV <50 complet oxy 017 E ed delta-9 14:10 tetrahy drocann abinol [Presen ce] in Unspeci fied specime n Urinalysis dipstick W Reflex Microscopic panel in Urine (01-09-2017 01:15) Bacteri 01-09-2 1+ O complet a 017 ed [Presen 01:15 ce] in Urine sedimen t by Light microsc opy Erythro 2 3-5 0 complet cytes 017 ed [Presen 01:15 ce] in Urine sedimen t by Light microsc opy Epithel 2 3-5 0#/hp complet ial 017 f - ed cells.s 01:15 5#/hp quamous f [Presen ce] in Urine sedimen t by Microsc opy high power field Leukocy 3-5 O complet ann 017 wbc/hpf ed [#/volu 01:15 me] in Urine Urinalysis dipstick W Reflex Microscopic panel in Urine (01-09-2017 01:15) Appeara 2 CLEAR CLEAR complet nce of 017 ed Urine 01:15 Bilirub 2 NEGATIV NEG complet in 017 E ed [Presen 01:15 ce] in Urine by Test strip Erythro TRACE-I NEG complet cytes 017 NTACT ed [Presen 01:15 ce] in Urine Color 2 YELLOW YELLOW complet of 017 ed Urine 01:15 Ketones NEGATIV NEG complet 017 E ed [Presen 01:15 ce] in Urine by Automat ed test strip Mucus 1+ NEG Abnorma complet [Presen 017 l ed ce] in 01:15 Urine sedimen t by Light microsc opy Nitrite 2 NEGATIV NEG complet 017 E ed [Presen 01:15 ce] in Urine by Test strip Urobili 2 1.0 NEG complet nogen 017 ed [Presen 01:15 ce] in Urine by Test strip Drugs identified in Urine by Screen method (01-02-2017 13:50) Ampheta NEGATIV <1000 complet mine 017 E ed [Presen 13:50 ce] in Urine by Screen method POSITIV <50 Abnorma complet oxy 017 E l ed delta-9 13:50 tetrahy drocann abinol [Presen ce] in Unspeci fied specime n B-HCG Ur Ql (07-14-2013 14:00) B-HCG --2 NEGATIV NEG complet Ur Ql 013 E ed 14:00 URINALYSIS/COMPLETE (07-14-2013 14:00) URINE -26-2 YELLOW YELLOW complet COLOR 013 ed 14:00 URINE -26-2 Sl CLEAR complet APPEARA 013 Cloudy ed NCE 14:00 URINE -26-2 NEGATIV NEG complet GLUCOSE 013 E ed - 14:00 DIPSTIC K URINE 11-26-2 NEGATIV NEG complet BILIRUB 013 E ed IN - 14:00 DIPSTIC K URINE 11-26-2 NEGATIV NEG complet KETONE 013 E mg/dL ed 14:00 URINE -26-2 1.025 1.005-1 complet SPECIFI 013 UNK .030 ed C 14:00 GRAVITY URINE --2 NEGATIV NEG complet BLOOD 013 E ed 14:00 URINE -26-2 6.0 UNK 5.0-8.5 complet PH 013 ed 14:00 URINE -26-2 NEGATIV NEG complet PROTEIN 013 E mg/dL ed - 14:00 DIPSTIC K URINE 11-26-2 1.0 NEG complet UROBILI 013 E.U./dL ed NOGEN - 14:00 DIPSTIC K URINE 11-26-2 NEGATIV NEG complet NITRATE 013 E ed - 14:00 DIPSTIC K URINE 11-26-2 NEGATIV NEG complet LEUK 013 E ed ESTERAS 14:00 E URINE -26-2 3-5 0 complet RBC 013 rbc/hpf ed 14:00 URINE -26-2 5-10 O complet WBC 013 wbc/hpf ed 14:00 URINE 11-26-2 5-10 0-5 complet SQUAMOU 013 #/hpf ed S CELLS 14:00 URINE -26-2 2+ O complet BACTERI 013 ed A 14:00 B-HCG Ur Ql (05-27-2013 23:30) B-HCG --2 NEGATIV NEG complet Ur Ql 013 E ed 23:30 URINALYSIS/COMPLETE (05-27-2013 23:00) URINE 05-27-2 YELLOW YELLOW complet COLOR 013 ed 23:00 URINE 05-27-2 CLEAR CLEAR complet APPEARA 013 ed NCE 23:00 URINE 05-27-2 NEGATIV NEG complet GLUCOSE 013 E ed - 23:00 DIPSTIC K URINE NEGATIV NEG complet BILIRUB 013 E ed IN - 23:00 DIPSTIC K URINE NEGATIV NEG complet KETONE 013 E mg/dL ed 23:00 URINE 1.015 1.005-1 complet SPECIFI 013 UNK .030 ed C 23:00 GRAVITY URINE NEGATIV NEG complet BLOOD 013 E ed 23:00 URINE 6.5 UNK 5.0-8.5 complet PH 013 ed 23:00 URINE NEGATIV NEG complet PROTEIN 013 E mg/dL ed - 23:00 DIPSTIC K URINE 2.0 NEG complet UROBILI 013 E.U./dL ed NOGEN - 23:00 DIPSTIC K URINE NEGATIV NEG complet NITRATE 013 E ed - 23:00 DIPSTIC K URINE NEGATIV NEG complet LEUK 013 E ed ESTERAS 23:00 E URINE OCC 0 complet RBC 013 rbc/hpf ed 23:00 URINE OCC O complet WBC 013 wbc/hpf ed 23:00 URINE 5-10 0-5 complet SQUAMOU 013 #/hpf ed S CELLS 23:00 URINE TRACE O complet BACTERI 013 ed A 23:00 STREP SCREEN (RAPID) (03-13-2013 14:55) STREP NEGATIV complet SCREEN 013 E ed (RAPID) 14:55 Procedures Procedure DOS Code Location Performer Comment DRUG TEST 27547 [facility] QUAL DIR [facility] OPTICAL OBS PER DAY COMPREHEN 49036 [facility] SIVE [facility] METABOLIC INC INC PANEL URINE 85411 [facility] TEST INC INC VISUAL COLOR CMPRSN METHS URNLS DIP 33478 [facility] STICK/TAB INC INC LET REAGENT AUTO MICROSCOP Y CREATINE 31177 [facility] KINASE 7 [facility] TOTAL INC INC ECG 43978 [facility] L[facility] ROUTINE 7 [facility] ECG INC INC W/LEAST 12 LDS TRCG ONLY W/O I&[place] [address] BAMBI LACY TROPONIN 7 [facility] QUANTITAT INC INC JULIANNE BLOOD 63745 [facility] LACY COUNT 7 [facility] COMPLETE INC INC AUTO&AUTO DIFRNTL WBC CREATINE 07889 BAMBI LACY KINASE MB 7 [facility] FRACTION INC INC ONLY RADIOLOGI 79232 BAMBI LACY C EXAM 7 [facility] CHEST 2 INC INC VIEWS FRONTAL&L ATERAL ECG 62896 BAMBI MÁRQUEZ JR ROUTINE 7 [facility] W/LEAST P 12 LDS I&R ONLY DRUG TEST 35450 BAMBI LACY PRSMV 7 [facility] QUAL DIR INC INC OPTICAL OBS PER DAY DRUG TEST 13729 BAMBI LACY PRSMV 7 [facility] QUAL DIR INC INC OPTICAL OBS PER DAY PRESSURIZ 03317 BAMBI LACY ED/NONPRE 7 [facility] SSURIZED INC INC INHALATIO N TREATMENT IAADI 35185 B[facility]BI LACY INFLUENZA 7 [facility] B VIRUS INC INC IAADI 41224 BAMBI LACY INFFLUENZ 7 [facility] A A VIRUS INC INC RADIOLOGI 57600 BAMBI LACY C EXAM 7 [facility] CHEST 2 INC INC VIEWS FRONTAL&[place] [address] BAMBI LACY STREPTOCO 7 [facility] CCUS INC INC GROUP A CUL BACT 21465 BAMBI LACY XCPT 7 [facility] URINE INC INC BLOOD/STO OL AEROBIC ISOL ECG 61141 BAMBI BRANHAM ROUTINE 6 [facility] W/LEAST P 12 LDS I&R ONLY FITTING 62095 SCIFRES SCIFRES SPECTACLE 6 ANG ANG S XCPT APHAKIA MONOFOCAL FRAMES V2020 SCIFRES SCIFRES PURCHASES 6 ANG ANG SCRATCH V2760 SCIFRES SCIFRES RESISTANT 6 ANG ANG COATING PER LENS LENS V2784 SCIFRES SCIFRES POLYCARBO 6 ANG ANG ALVINA OR EQUAL ANY INDEX PER LENS OPHTH 18576 SCIFRES SCIFRES MEDICAL 6 ANG ANG XM&EVAL COMPRE NEW PT 1/> VST SPHERE V2200 SCIFRES SCIFRES BIFOCL 6 ANG ANG PLANO TO PLUS/JONI S 4.00D PER LENS URINE 81939 [facility] 6 PHYSICIAN RANDY TEST S GROUP VISUAL COLOR CMPRSN METHS INTRAUTER J7300 [facility] INE 6 PHYSICIAN RANDY COPPER S GROUP CONTRACEP TIVE INSERTION 45573 [facility] PHYSICIAN RANDY INTRAUTER S GROUP INE DEVICE IUD SBSQ 33220 [facility] 6 MEDICAL CAR CARE/DAY SERV 25 FOUNDATIO MINUTES N RADIOLOGI 60629 [place] OLIVIER C 6 MEDICAL EXAMINATI SERV ON CHEST FOUNDATIO SINGLE N VIEW FRONTAL CT THORAX 04277 [place] SOY W/O 6 MEDICAL CONTRAST SERV MATERIAL FOUNDATIO N SBSQ 26237 [facility] 6 MEDICAL CARE/DAY SERV 15 FOUNDATIO MINUTES N RADIOLOGI 71837 [place] PHONG C 6 MEDICAL EXAMINATI SERV ON CHEST FOUNDATIO SINGLE N VIEW FRONTAL FLOW 14556 [facility]OWER CYTOMETRY 6 Y OF INTERPJ [place] 2-8 HOSPI MARKERS RIGHT 02406 [place] HA HEART 6 MEDICAL CATH O2 SERV SATURATIO FOUNDATIO N & N CARDIAC OUTPUT MEDICATIO 84235 [place] HA N ADMIN & 6 MEDICAL SERV HEMODYNAM FOUNDATIO IC N MEASURMEN T RADIOLOGI 35741 [place] PALMER C 6 MEDICAL MELVIN EXAMINATI SERV CHARLEE ON CHEST FOUNDATIO SINGLE N VIEW FRONTAL RADIOLOGI 51294 [place] NELSON ALL C 6 MEDICAL EXAMINATI IMAGING ON CHEST ASS SINGLE VIEW FRONTAL ECHO 13925 [place] NADIG VID TTHRC R-T 6 MEDICAL 2D SERV W/WOM-MOD FOUNDATIO E COMPL N SPEC&COLR D INITIAL [address]6527 [place] [address] PHYSICIAN MAT CARE/DAY S GROUP 50 MINUTES HOSPITAL 99216 [facility] YUMIKO DISCHARGE 6 PHYSICIAN ELIGIO DAY S GROUP MANAGEMEN T 30 MIN/< GROUND A0425 [facility] 6 AMBULANCE AMBULANCE PER SERVICE SERVICE STATUTE MILE CRITICAL 02355 [facility] 6 PHYSICIAN DORETHA ILL/INJUR S, PLLC ED PATIENT INIT 30-74 MIN INITIAL 08630 [facility] 6 PHYSICIAN EUG CARE/DAY S GROUP 50 MINUTES ECG 71240 BAMBI MÁRQUEZ JR ROUTINE 6 [facility] W/LEAST P 12 LDS I&R ONLY CT THORAX 98775 [place] [facility] 6 MEDICAL W/CONTRAS IMAGING T ASS MATERIAL RADIOLOGI 18510 [place] [facility] 6 MEDICAL EXAMINATI IMAGING [place] [address] [place] NELSON ALL ABDOMEN & 6 MEDICAL PELVIS IMAGING W/O ASS CONTRAST MATERIAL AMB A0427 [facility] SERVICE 6 AMBULANCE AMBULANCE ALS SERVICE SERVICE EMERGENCY TRANSPORT LEVEL 1 GROUND A0425 [facility] 6 AMBULANCE AMBULANCE PER [place]ICE [place] [address] [facility] SURG 6 JAY & ALBIN PATHOLOGY DUBILIER GROSS&ELIGIO ROSCOPIC EXAM POSTPARTU 01057 [facility] CARE 6 PHYSICIAN RANDY ONLY S GROUP SEPARATE PROCEDURE DRUG TST G0477 [facility]AMBI LACY PRESUMP;C 6 [facility] PBL BEING INC INC READ DC OPT OBV ONLY 94167 [facility] NONSTRESS 6 [place] [address] BAMBI LACY INFUSION 6 [facility] THERAPY/P INC INC ROPHYLAXI S /DX 1ST TO 1 HR HEMOGLOBI 75723 [facility] LACY N 6 [facility] GLYCOSYLA INC INC CHAVEZ A1C COLLECTIO 17618 BAMBI LACY N VENOUS 6 [facility] BLOOD INC INC VENIPUNCT URE 02553 [facility] NONSTRESS 6 PHYSICIAN RANDY TEST S GROUP 10689 [facility] NONSTRESS 6 PHYSICIAN PHYSICIAN TEST S GROUP S GROUP COLLECTIO 30176 BAMBI LACY N VENOUS 6 [facility] BLOOD INC INC VENIPUNCT URE GLUCOSE 20422 BAMBI LACY QUANTITAT 6 [facility] JULIANNE BLOOD INC INC XCPT REAGENT STRIP CUL 68266 [facility] PRSMPTV 6 PHYSICIAN RANDY PTHGNC S GROUP ORGANISM SCRN W/COLONY ESTIMJ PARTICLE 79070 BAMBI LACY AGGLUTINA 6 [facility] TION INC INC SCREEN EACH ANTIBODY 61332 [facility] NONSTRESS 6 PHYSICIAN RANDY TEST S GROUP 87749 [facility] NONSTRESS 6 PHYSICIAN PHYSICIAN TEST S GROUP S GROUP GLUCOSE 91325 BAMBI LACY TOLERANCE 6 [facility] TEST GTT INC INC 3 SPECIMENS COLLECTIO 32036 BAMBI LACY N VENOUS 6 [facility] BLOOD INC INC VENIPUNCT URE GLUCOSE 23422 [facility]BI LACY TOLERANCE 6 [facility] EA ADDL INC INC BEYOND 3 SPECIMENS BLOOD 51358 [facility] LACY TYPING 6 [facility] SEROLOGIC INC INC RH (D) HEMOGLOBI 94375 BAMBI LACY N 6 [facility] GLYCOSYLA INC INC CHAVEZ A1C COLLECTIO 95498 BAMBI LACY N VENOUS 6 [facility] BLOOD INC INC VENIPUNCT URE ANTIBODY 64907 BAMBI LACY SCREEN 6 [facility] RBC EACH INC INC SERUM TECHNIQUE BLOOD 56549 BAMBI LACY TYPING 6 [facility] SEROLOGIC INC INC ABO THERAPEUT 55048 BAMBI LACY IC 6 [facility] PROPHYLAC INC INC TIC/DX INJECTION SUBQ/IM INJECTION [id number] BAMBI LACY RHO D IG 6 [facility] HUMAN INC INC FULL DOSE 300 MCG DRUG TST [id number] BAMBI LACY PRESUMP;C 6 [facility] PBL BEING INC INC READ DC OPT OBV ONLY 82903 ROSAURA BRANNON NONSTRESS 6 SALUD FUNEZ RANDY TEST FTL 35725 BAMBI LACY FIBRONECT 6 [facility] IN INC INC CERVICOVA G SECRETION S SEMI-MARISABEL 56700 ROSAURA BRANNON NONSTRESS 6 SALUD FUNEZ RANDY TEST BLOOD 98743 BAMBI LACY COUNT 6 [facility] COMPLETE INC INC AUTO&AUTO DIFRNTL WBC GLUCOSE 47283 BAMBI LACY POST 6 [facility] GLUCOSE INC INC DOSE SMR PRIM 18679 ROSAURA BRANNON SRC WET 6 SALUD FUNEZ RANDY MOUNT NFCT AGT URINLS 83349 ORSAURA BRANNON DIP 6 SALUD FUNEZ RANDY STICK/TAB LET REAGNT NON-AUTO MICRSCPY COLLECTIO 19948 BAMBI LACY N VENOUS 6 [facility] BLOOD INC INC VENIPUNCT URE CULTURE 83620 BAMBI LACY BACTERIAL 6 [facility] INC INC QUANTTATI VE COLONY COUNT URINE URNLS DIP 55145 B[facility]BI LACY 6 [facility] STICK/TAB INC INC LET REAGENT AUTO MICROSCOP Y 16550 ROSAURA BRANNON NONSTRESS 6 SALUD FUNEZ RANDY TEST GONADOTRO 50000 BAMBI LACY PIN 6 [facility] [place]ORION[place] [address] BAMBI LACY ESTRIOL 6 [facility] INC INC COLLECTIO 34537 [facility]AMBI LACY N VENOUS 6 [facility] BLOOD INC INC VENIPUNCT URE ALPHA-FET 53748 BAMBI LACY OPROTEIN 6 [facility] SERUM INC INC BLOOD 09938 BAMBI LACY COUNT 6 [facility] HEMATOCRI INC INC T COLLECTIO 60474 BAMBI LACY N VENOUS 6 [facility] BLOOD INC INC VENIPUNCT URE BLOOD 99752 BAMBI LACY TYPING 6 [facility] SEROLOGIC INC INC ABO ANTIBODY 53562 BAMBI LACY SCREEN 6 [facility] RBC EACH INC INC SERUM TECHNIQUE URINE 99908 BAMBI LACY 6 [facility] TEST INC INC VISUAL COLOR CMPRSN METH BLOOD 85377 [facility] 6 [facility] HEMOGLOBI INC INC N BLOOD 47057 [facility] LACY TYPING 6 [facility] SEROLOGIC INC INC RH (D) GONADOTRO 17840 [facility] L[facility] PIN 6 [facility] CHORIONIC INC INC QUANTITAT JULIANNE URNLS DIP 09722 [facility] LACY 6 [facility] STICK/TAB INC INC LET REAGENT AUTO MICROSCOP Y THERAPEUT 18471 [facility] LACY IC 6 [facility] PROPHYLAC INC INC TIC/DX INJECTION SUBQ/IM US PREG 70480 [place] [facility] ALL UTERUS 6 MEDICAL REAL TIME IMAGING W/IMAGE ASS DCMTN TRANSVAG US PREG 87234 ROSAURA BRANNON UTERUS 5 SALUD FUNEZ RANDY REAL TIME W/IMAGE DCMTN TRANSVAG IADNA 94818 BIO BIO GARDNEREL 5 REFERNCE REFERNCE LA LABORATOR LABORATOR VAGINALIS IES IES AMPLIFIED PROBE TQ CULTURE 84960 ROSAURA BRANNON CHLAMYDIA 5 SALUD FUNEZ RANDY ANY SOURCE CYTP C/V 74161 BIO BIO AUTO THIN 5 REFERNCE REFERNCE LYR LABORATOR LABORATOR PREPJ SCR IES IES MNL RESCR PHYS URINE 93669 ROSAURA BRANNON 5 SALUD PADILLA TEST VISUAL COLOR CMPRSN METHS IADNA 62912 BIO BIO TRICHOMON 5 REFERNCE REFERNCE LABORATOR LABORATOR VAGINALIS IES IES AMPLIFIED PROBE TECH IAADIADOO 86033 ROSAURA BRANNON MD TRICHOMON VAGINALIS IADNA 82529 BIO BIO NEISSERIA 5 REFERNCE REFERNCE LABORATOR LABORATOR GONORRHOE IES IES AE AMPLIFIED PROBE TQ IADNA NOS 77874 BIO BIO 5 REFERNCE REFERNCE AMPLIFIED LABORATOR LABORATOR PROBE TQ IES IES EACH ORGANISM IADNA 24355 BIO BIO HERPES 5 REFERNCE REFERNCE SOMPLX LABORATOR LABORATOR VIRUS IES IES AMPLIFIED PROBE TQ IADNA 33639 ROSAURA Pepe NEISSERIA 5 SALUD BRANNON MD GONORRHOE AE DIRECT PROBE TQ IADNA 81756 BIO BIO CHLAMYDIA 5 REFERNCE REFERNCE LABORATOR LABORATOR TRACHOMAT IES IES IS AMPLIFIED PROBE TQ IADNA 78067 ROSAURA BRANNON HERPES 5 SALUD ECKERTX VIRUS DIRECT PROBE TQ URINE 70991 [facility] HALL 5 PHYSICIAN DOMENICO TEST S GROUP VISUAL COLOR CMPRSN METHS COLLECTIO 66494 [facility] LACY N VENOUS 5 [facility] BLOOD INC INC VENIPUNCT URE GONADOTRO 44980 [facility] L[facility] PIN 5 [facility] [place] [address] [place] [facility] DELIVERY 5 MEDICAL PREM ONLY SERV FOUNDATIO N ANESTHESI 98806 [place] FRAGNETO A 5 MEDICAL REG SERV DELIVERY FOUNDATIO ONLY N LOW 741 [facility] CERVICAL 5 Y Y HOSPITAL HOSPITAL SECTION BLD BANK 87837 [facility] 5 [facility] M[facility]&/EV AL REP SBSQ [address]13 [facility] 5 MEDICAL MEDICAL CARE/DAY SERV SERV 25 FOUNDATIO FOUNDATIO MINUTES N N 12712 [facility] NONSTRESS 5 MEDICAL PREM TEST SERV FOUNDATIO N 31006 [facility] NONSTRESS 5 MEDICAL PREM TEST SERV FOUNDATIO N 10795 [facility] NONSTRESS 5 MEDICAL PREM TEST SERV FOUNDATIO N SBSQ 68957 [facility] 5 MEDICAL PREM CARE/DAY SERV 25 FOUNDATIO MINUTES N SBSQ 37167 [facility] 5 MEDICAL MEDICAL CARE/DAY SERV SERV 25 FOUNDATIO FOUNDATIO MINUTES N N SBSQ 64255 [facility] 5 MEDICAL MEDICAL CARE/DAY SERV SERV 25 FOUNDATIO FOUNDATIO MINUTES N N SBSQ [address]002 [facility] 5 MEDICAL MEDICAL CARE/DAY SERV SERV 25 FOUNDATIO FOUNDATIO MINUTES N N 73595 [facility] NONSTRESS 5 MEDICAL SHAYAN TEST SERV FOUNDATIO N SBSQ 43317 [facility] 5 MEDICAL MEDICAL CARE/DAY SERV SERV 25 FOUNDATIO FOUNDATIO MINUTES N N SBSQ 38770 [facility] 5 MEDICAL MEDICAL CARE/DAY SERV SERV 25 FOUNDATIO FOUNDATIO MINUTES N N [place] PREG 34043 [place] [facility] UTERUS 5 MEDICAL DAVID W/DETAIL SERV FOUNDATIO CHARLEE 1ST N GESTATION US PREG 41195 B[facility] LACY UTERUS 5 [facility] REAL TIME INC INC F/U TRNSABDL PER FETUS 64861 B[facility]BI LACY BIOPHYSIC 5 [facility] AL INC INC PROFILE W/O NON-STRES S TESTING 10961 [facility] NONSTRESS 5 PHYSICIAN PHYSICIAN TEST S GROUP S GROUP AMB [id number] [facility] SERVICE 5 AMBULANCE AMBULANCE ALS SERVICE SERVICE EMERGENCY TRANSPORT LEVEL 1 [facility]25 [facility] PER SERVICE SERVICE STATUTE MILE [facility] 66096 [facility] 5 Y OF DIFFC [facility] HOS[facility] MATCH&/EV AL REP HOSPITAL G0378 B[facility] LACY OBSERVATI 5 [facility] ON INC INC SERVICE PER HOUR INJECTION J0290 [facility] LACY 5 [facility] AMPICILLI INC INC N SODIUM 500 MG 23673 [place] FAITH 5 MEDICAL MEEK UTERUS IMAGING LIMITED ASS 1/> FETUSES INJECTION J0290 [facility] LACY 5 [facility] AMPICILLI INC INC N SODIUM 500 MG BASIC 77332 [facility] LACY METABOLIC 5 [facility] PANEL INC INC [facility] G0378 B[facility] LACY OBSERVATI 5 [facility] ON INC INC SERVICE PER HOUR EVAL C/V 04423 [facility] LACY AMNIOTIC 5 [facility] FLUID INC INC PROTEIN QUAL EA SPECIMEN CUL BACT 47660 [facility] L[facility] XCPT 5 [facility] URINE INC INC BLOOD/STO OL AEROBIC ISOL CUL BACT 97044 [facility] LACY AEROBIC 5 [facility] ADDL INC INC METHS DEFINITIV E EA ISOL SUSCEPTIB 16889 [facility] LACY LTY STDY 5 [facility] ANTIMICRB INC INC IAL MICRO/AGA R DILUTJ BLOOD 80404 [facility] LACY COUNT 5 [facility] COMPLETE INC INC AUTO&AUTO DIFRNTL WBC 97949 [facility] LACY NONSTRESS 5 [facility] TEST INC INC INITIAL 83974 ROSAURA BRANNON OBSERVATI 5 SALUD PADILLA ON CARE/DAY 50 MINUTES URNLS DIP 43818 [facility] LACY 5 [facility] STICK/TAB INC INC LET REAGENT AUTO MICROSCOP Y THERAPEUT 58336 B[facility]BI LACY IC 5 [facility] PROPHYLAC INC INC TIC/DX INJECTION SUBQ/IM INJECTION J2790 B[facility]BI LACY RHO D IG 5 [facility] HUMAN INC INC FULL DOSE 300 MCG GLUCOSE 07767 [facility] POST 5 PHYSICIAN PHYSICIAN GLUCOSE S GROUP S GROUP DOSE BLOOD 27861 BAMBI LACY TYPING 5 [facility]OS[facility] SEROLOGIC INC INC RH (D) COLLECTIO 59764 BAMBI LACY N VENOUS 5 [facility] HOSP BLOOD INC INC VENIPUNCT URE ANTIBODY 26267 BAMBI LACY SCREEN 5 [facility]OSP RBC EACH INC INC SERUM TECHNIQUE BLOOD 98164 B[facility] LACY TYPING 5 [facility] SEROLOGIC INC INC ABO 38397 [facility] HALL NONSTRESS 5 PHYSICIAN DOMENICO TEST S GROUP US PREG 66645 [facility] HALL UTERUS 5 PHYSICIAN DOMENICO AFTER 1ST S GROUP [place] PREG 21820 HALL HALL UTERUS 4 DOMENICO DOMENICO AFTER 1ST TRIMEST GESTATION ANTIBODY 50075 COMBINED COMBINED CHLAMYDIA 4 PHYSICIAN PHYSICIAN S LA S LA URINE 90706 HALL HALL 4 DOMENICO DOMENICO TEST VISUAL COLOR CMPRSN METHS CUL BACT 90257 COMBINED COMBINED XCPT 4 PHYSICIAN PHYSICIAN URINE S LA S LA BLOOD/[place] [address] ISABEL HALL TRANSVAGI 4 DOMENICO DOMENICO NAL ANTIBODY 78455 COMBINED COMBINED CHLAMYDIA 4 PHYSICIAN PHYSICIAN S LA S LA CUL BACT 17547 COMBINED COMBINED XCPT 4 PHYSICIAN PHYSICIAN URINE S LA S LA BLOOD/STO OL AEROBIC ISOL URINE 58232 ISABEL HALL 4 DOMENICO DOMENICO TEST [place] [address] ISABEL HALL TRANSVAGI 4 DOMENICO DOMENICO NAL ANTIBODY 29837 COMBINED COMBINED CHLAMYDIA 4 PHYSICIAN PHYSICIAN S LA S LA URINE 27674 ISABEL HALL 4 DOMENICO DOMENICO TEST VISUAL COLOR CMPRSN METHS CUL BACT 58928 COMBINED COMBINED XCPT 4 PHYSICIAN PHYSICIAN URINE S LA S LA BLOOD/STO OL AEROBIC ISOL RADEX 43707 FAITH FAITH SHOULDER 3 MEEK MEEK COM[place] [address] [place] [address] FAITH FAITH HEAD/BRAI 3 MEEK MEEK N W/[place] [address] FAITH FAITH CERVICAL 3 MEEK MEEK SPINE W/O CONTRAST MATERIAL IAADIADOO 36819 NEUS ISAIAS NEUS ISAIAS 3 [place] [address] ISABEL HALL TRANSVAGI 3 DOMENICO DOMENICO NAL ANTIBODY 94340 COMBINED COMBINED CHLAMYDIA 3 PHYSICIAN PHYSICIAN S LA S LA CUL BACT 03585 COMBINED COMBINED XCPT 3 PHYSICIAN PHYSICIAN URINE S LA S LA BLOOD/STO OL AEROBIC ISOL SMR PRIM 23134 ISABEL HALL SRC WET 3 DOMENICO DOMENICO M[facility] NFCT AGT FITTING 20437 VALDEZBRENDAN MACARIO VALDEZ RENALDO SPECTACLE 2 S XCPT APHAKIA MONOFOCAL DETERMINA 90443 VALDEZBRENDAN MACARIO VALDEZBRENDAN MACARIO TION 2 REFRACTIV E STATE SPHERE V2100 VALDEZBRENDAN MACARIO VALDEZ RENALDO SINGLE 2 VISION PLANO +/- 4.00 PER LENS FRAMES V2020 VALDEZBRENDAN MACARIO PURCHASES 2 OPHTH 16678 VALDEZBRENDAN MACARIO [facility] MEDICAL 2 XM&EVAL COMPRHNSV ESTAB PT 1/> IADNA 39736 PRANEETH PRANEETH STREPTOCO 1 MARINO MARINO CCUS GROUP A QUANTIFIC ATION RADIOLOGI 54081 BAMBI Tuttle EXAM 1 [facility] CHEST 2 INC INC VIEWS FRONTAL&L ATERAL URINE 61231 [facility] LACY 1 [facility] TEST INC INC VISUAL COLOR CMPRSN METHS RPR&REFIT 08767 CEE VALDEZ RENALDO G 1 VISION SPECTACLE S EXCEPT APHAKIA 1 VISN V2103 CEE MACARIO PLANO 1 VISION TO+/-4.00 D SPHER 0.12-2.00 D CYL EA FRAMES V2020 CEE MACARIO PURCHASES 1 VISION SPHERE V2100 CEE MACARIO SINGLE 1 VISION VISION PLANO +/- 4.00 PER LENS SPHERE V2100 CEE SABA SINGLE 1 VISION ANG VISION PLANO +/- 4.00 PER LENS FRAMES V2020 CEE SABA PURCHASES 1 VISION ANG 1 VISN V2103 CEE SABA PLANO 1 VISION ANG TO+/-4.00 D SPHER 0.12-2.00 D CYL EA FITTING 25573 CEE SABA SPECTACLE 1 VISION ANG S XCPT APHAKIA MONOFOCAL OPHTH 64884 CEE SABA MEDICAL 1 VISION ANG XM&EVAL COMPRE NEW PT 1/> VST URINE 82103 [facility] TEST [facility]IN[facility] OF VISUAL ABHIJEET COLOR CMPRSN METHS LEVONORGE J7302 [facility] H[facility] STREL-RLS 1 [facility] E [facility] INTRAUTER ABHIJEET N CNTRACPT 52 MG INSERTION 85474 [facility] INTRAUTER CLINIC OF INE ABHIJEET DEVICE IUD INJECTION 9911 B[facility]BI LACY OF RH 1 [facility] IMMUNE INC INC GLOBULIN REPAIR OF 7569 B[facility] LACY OTHER 1 [facility] CURRENT INC INC OBSTETRIC LACERATIO N VAGINAL 83868 [facility] DELIVERY 1 [facility] ONLY CLIN[facility]HIJE[facility] NEURAXIAL 18563 [facility] ANESTH ANALG/ANE OF THE S PLND BLUE VAGINAL DELIVERY DOPPLER 76694 [facility] VELOCIMET 1 [facility] RY CLINIC OF UMBILICAL ABHI[place] ARTERY US PREG 73583 [facility] H[facility] UTERUS 1 [facility] REAL TIME CLINIC OF F/U ABHIJEET TRNSABDL PER FETUS 73234 [facility] BIOPHYSIC 1 [facility] AL CLINIC OF PROFILE ABHIJEET W/O NON-STRES S TESTING CUL BACT 42843 COMBINED COMBINED XCPT 0 PHYSICIAN PHYSICIAN URINE S LA S LA BLOOD/STO OL AEROBIC ISOL FTL 48274 BAMBI LACY FIBRONECT 0 [facility] IN INC INC CERVICOVA G SECRETION S SEMI-MARISABEL URNLS DIP 85016 [facility] BAMBI 0 [facility] STICK/TAB INC INC LET REAGENT AUTO MICROSCOP Y 82124 BAMBI LACY NONSTRESS 0 [facility] TEST INC INC TOBACCO 21027 BAMBI NAZARIOON USE 0 [facility] CESSATION INC INC INTERMEDI ATE 3-10 MINUTES GLUCOSE 86391 [facility] TOLERANCE 0 [facility] TEST GTT CLINIC OF 3 ABHIJEET SPECIMENS GLUCOSE 06847 [facility] POST 0 [facility] GLUCOSE CLINIC OF DOSE ABHIJEET FTL 41380 BAMBI LACY FIBRONECT 0 [facility] IN INC INC CERVICOVA G SECRETION S SEMI-MARISABEL TOBACCO 42119 BAMBI BAMBI USE 0 [facility] CESSATION INC INC INTERMEDI ATE 3-10 MINUTES 29699 [facility] NONSTRESS 0 [facility] TEST CLINIC OF ABHIJEET URNLS DIP 15852 B[facility]BI BAMBI 0 [facility] STICK/TAB INC INC LET REAGENT AUTO MICROSCOP Y OBSERVATI 95927 [facility] ON/INPATI 0 [facility] C[facility] 40 MINUTES URNLS DIP 28494 B[facility]BI BAMBI 0 [facility] STICK/TAB INC INC LET REAGENT AUTO MICROSCOP Y 84564 B[facility] LACY NONSTRESS 0 [facility] TEST INC INC CULTURE 88652 B[facility] LACY BACTERIAL 0 [facility] INC INC QUANTTATI VE COLONY COUNT URINE IAADIADOO 27444 CONTE CONTE 0 DON DON STREPTOCO CCUS GROUP A US PREG 94974 [facility] UTERUS 0 [facility] AFTER 1ST CLINIC OF TRIMEST ABHIJEET GESTATION CYTP C/V 65985 PATHOLOGY PATHOLOGY AUTO THIN 0 & & LYR CYTOLOGY CYTOLOGY PREPJ SCR LAB LAB MNL RESCR PHYS IADNA 03575 PATHOLOGY PATHOLOGY CHLAMYDIA 0 & & CYTOLOGY CYTOLOGY TRACHOMAT LAB LAB IS AMPLIFIED PROBE TQ IADNA 58115 PATHOLOGY PATHOLOGY NEISSERIA 0 & & CYTOLOGY CYTOLOGY GONORRHOE LAB LAB AE AMPLIFIED PROBE TQ CULTURE 15717 [facility] LACY BCT 0 [facility] ISOL&PRSM INC INC PTV ID ISOLATE EA URINE CULTURE 10174 [facility] LACY BACTERIAL 0 [facility] INC INC QUANTTATI VE COLONY COUNT URINE SUSCEPTIB 76687 B[facility]BI LACY LTY STDY 0 [facility] ANTIMICRB INC INC IAL MICRO/AGA R DILUTJ FTL 66969 BAMBI LACY FIBRONECT 0 [facility] IN INC INC CERVICOVA G SECRETION S SEMI-MARISABEL OBSERVATI 68027 [facility] ON/INPATI 0 PHYSICIAN [facility] PCC CARE 55 MINUTES URNLS DIP 04936 [facility] LACY 0 [facility] STICK/TAB INC INC LET REAGENT AUTO MICROSCOP Y 40689 B[facility] LACY NONSTRESS 0 [facility] TEST INC INC URINE 27046 BAMBI NAZARIOON 0 [facility] CENTER VISUAL COLOR CMPRSN METHS CULTURE 13717 [facility] CHLAM[facility]IA 9 Y Y [facility] HOSPITAL SOURCE CUL 77989 [facility] PRSMPTV 9 Y [facility] HOSPITAL ORGANISM SCRN W/COLONY ESTIMJ CUL 30929 [facility] PRSMPTV 9 Y Y [facility] ORGANISM SCRN W/COLONY ESTIMJ SYPHILIS 05410 [facility] TEST 9 Y Y [facility] NEMAL ANTIBODY QUAL CULTURE 80754 [facility] CHLAMYDIA 9 Y Y ANY HOSPITAL HOSPITAL SOURCE UNLISTED 23360 [facility] EVALUATIO 9 ADVOCACY ADVOCACY N AND [facility] T SERVICE [facility] BLUE[facility]ASS SCR G0145 [facility] CYTOPATH 9 Y Y CERV/VAG [facility] SCR AUTO&MNL RSCR PHYS URNLS DIP 51093 [facility] [address] [place] [address] LET REAGENT AUTO MICROSCOP Y URINE 17212 [facility] [address] [place] [address] VISUAL COLOR CMPRSN METHS URINE 76525 [facility] [address] [place] [address] VISUAL COLOR CMPRSN METHS URNLS DIP 93344 [facility] [address] [place] [address] [facility] LET REAGENT AUTO MICROSCOP Y COLLECTIO 41424 [facility] N VENOUS [address] [place] [address] VENIPUNCT URE BASIC 56834 [facility] METABOLIC 9 [facility] CALCIUM TOTAL IAADIADOO 30514 [facility] [place] [address] [place] [address] HOSPITAL CULTURE 20049 [facility] BACTERIAL [address] [place] [address] QUANTTATI VE COLONY COUNT URINE BLOOD 44420 [facility] COUNT [address] [place] [address] AUTO&AUTO DIFRNTL WBC CULTURE 35214 [facility] BACTERIAL [address] [place] [address] AEROBIC W/ID ISOLATES IAADIADOO 35489 [facility] [place] [address] [place] [address] CCUS GROUP A HETEROPHI 78484 [facility] M[place] LE [address] [place] [address] ANTIBODIE [facility] S SCREEN COLLECTIO 37247 [facility] N VENOUS [address] [place] [address] BLOOD VENIPUNCT URE COLLECTIO 00542 DIDIER VELÁSQUEZ N VENOUS 8 [facility] [place] [address] DIDIER VELÁSQUEZ AMYLASE [address] [place] [address] BLOOD 71840 DIDIER VELÁSQUEZ COUNT [address] [place] [address] AUTO&AUTO DIFRNTL WBC CULTURE 99039 DIDIER VELÁSQUEZ BACTERIAL 8 [facility] QUANTTATI [place] [address] DIDIER VELÁSQUEZ LIPASE [address] [place] [address] URNLS DIP 93885 DIDIER VELÁSQUEZ [address] [place] [address]/TAB [facility] H[facility]PITAL LET REAGENT AUTO MICROSCOP Y URINE 79970 DIDIER VELÁSQUEZ [address] [place] [address] VISUAL COLOR CMPRSN METHS COMPREHEN 52430 DIDIER VELÁSQUEZ SIVE [address] [place] [address] HOSPITAL PANEL OPHTH 68471 JOSÉ MIGUEL VALDEZ, MEDICAL 8 JAMES A JAMES A XM&EVAL COMPRE NEW PT 1/> VST SPHERE V2100 JOSÉ MIGUEL VALDEZ, SINGLE 8 JAMES A JAMES A VISION PLANO +/- 4.00 PER LENS FRAMES V2020 JOSÉ MIGUEL VALDEZ, PURCHASES 8 JAMES A JAMES A FITTING 09296 JOSÉ MIGUEL VALDEZ, SPECTACLE 8 JAMES A JAMES A S XCPT APHAKIA MONOFOCAL SCREENING 56612 [facility] CO HEALTH PURE TONE CENTRAL AIR ONLY BANK ACCT DEPARTMEN T Encounters Encounter Start End Date Code Location Performer Type Date HOSPITAL [facility] - 7 7 [facility] OUTPATIEN INC T EMERGENCY 39175 LUANNE ARGUELLO DEPT 7 7 PHYSICIAN VISIT S, [facility] HIGH SEVERITY& THREAT [facility] BAMBI - 7 7 [facility] OUTPATIEN INC T EMERGENCY 26998 BAM[facility] 7 7 [facility] DEPARTMEN INC T VISIT MODERATE SEVERITY [facility]OSPITAL [facility] - 7 7 [facility] OUTPATIEN INC OFFICE 96149 [facility] OUTPATIEN 7 7 PHYSICIAN T VISIT S GROUP 15 MINUTES HOSPITAL [facility] - 7 7 [facility] OUTPATIEN INC [facility] - 7 7 [facility] OUTPATIEN INC EMERGENCY 22209 [facility] 7 7 [facility] T VISIT LOW/MODER SEVERITY EMERGENCY 73103 LUANNE CRUZ 7 7 PHYSICIAN DEPARTMEN S, [facility] T VISIT HIGH/URGE NT SEVERITY EMERGENCY 64910 LUANNE ARGUELLO DEPT 6 6 PHYSICIAN ELIGIO VISIT S, [facility] HIGH SEVERITY& [facility] 97928 [facility] OUTPATIEN 6 6 PHYSICIAN RANDY T VISIT S GROUP 25 MINUTES EMERGENCY 60743 LUANNE ARGUELLO 6 6 PHYSICIAN [facility] DEPARTMEN S, [facility] T VISIT HIGH/URGE NT SEVERITY HOSPITAL [facility] - 6 6 [facility] INPATIENT [facility] HOSPITAL B[facility] - 6 6 [facility] OUTPATIEN [facility] HOSPITAL B[facility] - 6 6 [facility] OUTPATIEN [facility] OFFICE 26522 [facility] OUTPATIEN 6 6 PHYSICIAN RANDY T VISIT S GROUP 15 MINUTES HOSPITAL [facility] - 6 6 [facility] OUTPATIEN [facility] H[facility]PITAL [facility] - 6 6 [facility] OUTPATIEN INC OFFICE 40937 [facility] OUTPATIEN 6 6 PHYSICIAN RANDY T VISIT S GROUP 15 MINUTES OFFICE 11865 [facility] PERDOMOPEL OUTPATIEN 6 6 SALUD PADILLA T VISIT 15 MINUTES HOSPITAL [facility] - 6 6 [facility] OUTPATIEN INC T OFFICE 49107 [facility] PERDOMOPEL OUTPATIEN 6 6 SALUD PADILLA T VISIT 15 MINUTES HOSPITAL [facility] - 6 6 [facility] OUTPATIEN INC T [facility]OSPITAL [facility] - 6 6 [facility] OUTPATIEN INC T OFFICE 34774 [facility] PERDOMOPEL OUTPATIEN 6 6 SALUD PADILLA T VISIT 15 MINUTES HOSPITAL [facility] - 6 6 [facility] OUTPATIEN INC T OFFICE 61806 [facility] PERDOMOPEL OUTPATIEN 6 6 SALUD PADILLA T VISIT 15 MINUTES HOSPITAL [facility] - 6 6 [facility] OUTPATIEN INC T OFFICE 03403 [facility] PERDOMOPEL OUTPATIEN 6 6 SALDU PADILLA T VISIT 15 MINUTES HOSPITAL [facility] - 6 6 [facility] OUTPATIEN INC T OFFICE 74390 [facility] PERDOMOPEL OUTPATIEN 6 6 SALUD PADILLA T VISIT 15 MINUTES OFFICE 38273 [facility] PERDOMOPEL OUTPATIEN 6 6 SALUD PADILLA T VISIT 15 MINUTES HOSPITAL [facility] - 6 6 [facility] OUTPATIEN INC T EMERGENCY 44459 LUANNE ASIF DEPT 6 6 PHYSICIAN U BRITTANIE VISIT S, [facility] HIGH SEVERITY& THREAT [facility] EMERGENCY 00645 [facility] 6 6 [facility] INC T VISIT MODERATE SEVERITY OFFICE 73413 [facility] HANL OUTPATIEN 6 6 SALUD PADILLA T VISIT 15 MINUTES OFFICE 49491 [facility] PERDOMOPEL OUTPATIEN 5 5 SALUD PADILLA T VISIT 15 MINUTES OFFICE 85006 [facility] OUTPATIEN 5 5 PHYSICIAN T VISIT S GROUP 15 MINUTES HOSPITAL [facility] - 5 5 [facility] OUTPATIEN INC T HOSPITAL UNIVERSIT - 5 5 Y INPATIENT HOSPITAL [facility] - 5 5 [facility] OUTPATIEN INC T OFFICE 20026 [facility] OUTPATIEN 5 5 PHYSICIAN DOMENICO T VISIT S GROUP 15 MINUTES OFFICE 59984 [facility] OUTPATIEN 5 5 PHYSICIAN DOMENICO T VISIT S GROUP 15 MINUTES [facility] - [facility] 5 [facility] T OFFICE 03516 [facility] OUTPATIEN 5 5 PHYSICIAN T VISIT 5 S GROUP MINUTES [facility] - 5 5 [facility] T EMERGENCY 15295 [facility] 5 5 [facility] INC T VISIT LOW/MODER SEVERITY EMERGENCY 70667 [facility] ELIZONDO KAYDEN 5 5 [facility] T VISIT P MODERATE SEVERITY OFFICE 11794 [facility] HALL OUTPATIEN 5 5 PHYSICIAN DOMENICO T VISIT S GROUP 15 MINUTES OFFICE 94076 [facility] OUTPATIEN 5 5 PHYSICIAN DOMENICO T VISIT S GROUP 15 MINUTES OFFICE 98274 [facility] OUTPATIEN 5 5 PHYSICIAN DOMENICO T VISIT S GROUP 15 MINUTES OFFICE 11413 [facility] OUTPATIEN 4 4 PHYSICIAN DOMENICO T VISIT S GROUP 15 MINUTES OFFICE 40802 [facility] OUTPATIEN 4 4 PHYSICIAN DOMENICO T VISIT S GROUP 15 MINUTES OFFICE 78136 ISABEL HULLE OUTPATIEN 4 4 DOMENICO DOMENICO T VISIT 25 MINUTES OFFICE 12758 ROSAURA LOPEZEN 4 4 SALUD PADILLA T VISIT 15 MINUTES EMERGENCY 73589 [facility] 4 4 [facility] EMERGENCY T VISIT PHYS HIGH/URGE NT SEVERITY EMERGENCY 39885 ALONDRA ARGUELLO 4 4 KONSTANTIN ELIGIO DEPARTMEN EMERGENCY T VISIT PHYS HIGH/URGE NT SEVERITY OFFICE 99691 ISABEL HULLE OUTPATIEN 4 4 DOMENICO DOMENICO T VISIT 25 MINUTES OFFICE 54707 ISABEL HULLE OUTPATIEN 4 4 DOMENICO DOMENICO T VISIT 25 MINUTES Emergency SHIVA Zapata (ER) 3 14:27 3 14:48 [facility] EMERGENCY 16852 AMPARO ZAPATA 3 3 III KINSE[facility] III [facility] DEPARTMEN T VISIT MODERATE SEVERITY Emergency SHIVA Arguello MD (ER) 3 00:37 3 00:47 [facility] EMERGENCY 79455 YUMIKO ARGUELLO 3 3 ELIGIO ELIGIO DEPARTMEN T VISIT HIGH/URGE NT SEVERITY Emergency SHIVA Zapata (ER) 3 15:29 3 15:51 [facility] EMERGENCY 23521 AMPARO ZAPATA 3 3 III KINSEY III [facility] DEPARTMEN T VISIT HIGH/URGE NT SEVERITY OFFICE 03614 ISABEL HALL OUTPATIEN 3 3 DOMENICO DOMENICO T VISIT 25 MINUTES OFFICE 63794 NEUS ISAIAS OUTPATIEN 3 3 T VISIT 25 MINUTES OFFICE 61859 [facility] [address] [place] [address] T VISIT HIGH [facility]IGH 10 [employer] MINUT[facility] OFFICE 40483 NEUS ISAIAS OUTPATIEN 3 3 T NEW 20 MINUTES OFFICE 13116 [facility] [address] [place] [address] T VISIT HIGH [facility]IGH 15 [facility] MINUTES OFFICE 69770 [facility] OUT[facility] [address] [place] [address] T VISIT HIGH HIGH 10 [facility] MINUTES OFFICE 99124 [facility] OUTPATIEN [address] [place] [address] T VISIT [facility]IGH [facility]IGH 15 [facility] MINUTES OFFICE 99684 ISABEL HALL OUTPATIEN 3 3 DOMENICO DOMENICO T VISIT 25 MINUTES OFFICE 17726 [facility]ACKEN BRACKEN OUTPATIEN 3 3 [facility] T VISIT HIGH HIGH 10 [facility] MINUT[facility] OFFICE 04151 LIZZY BALL OUTPATIEN 3 3 EVONNE DOUGLASS T VISIT 15 MINUTES OFFICE 10239 [facility]ACK[facility] OUTPATIEN 3 3 [facility] T VISIT HIGH HIGH 15 [facility] MINUTES OFFICE 63328 [facility]ACK[facility] BRACKEN OUTPATIEN [address] [place] [address] T VISIT HIGH [facility]IGH 10 [facility] MINUTES OFFICE 49762 [facility]ACK[facility] OUTPATIEN [address] [place] [address] T VISIT HIGH [facility]IGH 10 [facility] MINUT[facility] OFFICE 83248 [facility]ACK[facility] OUTPATIEN [address] [place] [address] T VISIT HIGH [facility]IGH 15 [facility] MINUTES OFFICE 98669 [facility] BRACKEN OUTPATIEN [address] [place] [address] T VISIT HIGH [facility]IGH 10 [facility] MINUT[facility] OFFICE 93091 [facility]ACK[facility] OUTPATIEN [address] [place] [address] T VISIT HIGH HIGH 15 [facility] MINUTES OFFICE 03497 [facility]ACK[facility] BRACKEN OUTPATIEN [address] [place] [address] T VISIT HIGH [facility]IGH 10 [facility] MIN[facility] OFFICE 15171 [facility] BRACK[facility] OUTPATIEN [address] [place] [address] T VISIT [facility]IGH [facility] MIN[facility] OFFICE 91009 [facility]ACK[facility] OUTPATIEN [address] [place] [address] T VISIT HIGH [facility]IGH 10 [facility] MINUT[facility] OFFICE 53511 [facility]ACK[facility] OUTPATIEN [address] [place] [address] T VISIT HIGH HIGH 10 [facility] MINUT[facility] OFFICE 05121 PRANEETH PRANEETH OUTPATIEN 2 2 MARINO MARINO T VISIT 15 MINUTES OFFICE [id number] [facility] PRANE[facility] OUTPATIEN 1 1 MARINO MARINO T VISIT 10 MINUTES EMERGENCY 19775 TRICIA ALMEIDA FIDELINA 1 1 EMERGENCY DEPARTMEN SERVICES T VISIT MODERATE SEVERITY EMERGENCY 80935 [facility] 1 1 [facility]ISIT LOW/MODER SEVERITY [facility] T OFFICE 08765 [facility] OUTPATIEN 1 1 [facility] 10 MINUTES OFFICE 74946 [facility] OUTPATIEN 1 1 [facility] 10 MINUTES OFFICE 40656 [facility]IENT [facility] OFF[facility] 60576 [facility] MINUTES OFFICE 73118 [facility] MINUTES OFFICE 92918 [facility] MINUTES OFFICE 03797 [facility] [place] MINUTES OFFICE 43401 INÉS ETIENNEHENS OUTPATIEN 0 0 DON DON T VISIT 15 MINUTES OFFICE 21867 [facility] MIN[facility] - 0 0 [facility] INC T OFFICE 44790 [facility] LACY OUTPATIEN 0 0 [facility] 15 MINUTES OFFICE 82107 [facility] LACY OUTPATIEN 0 0 [facility] 15 MINUTES OFFICE 53534 [facility]EN'S OUTPATIEN 0 0 [facility]ALTH T VISIT 5 CLINIC OF MINUTES [facility] OFFICE 26997 [facility] OUT[facility] 15 [facility] MINUT[facility] T OFFICE 31548 [facility] LACY OUTPATIEN 0 0 [facility] 15 [facility]ES [facility] T OFFICE 75287 INÉS CONTE OUTPATIEN 0 0 DON DON T VISIT 15 MINUTES OFFICE 39516 [facility] LACY OUTPATIEN 0 0 [facility] 15 MINUTES OFFICE 21142 INÉS COLEMANS OUTPATIEN 0 0 DON DON T VISIT 15 MINUTES OFFICE 20112 [facility] LACY OUTPATIEN 0 0 [facility] T OFFICE 37739 [facility] LACY OUTPATIEN 0 0 [facility] 10 MINUTES OFFICE 11454 [facility] LACY OUTPATIEN 0 0 [facility] T [facility] MIN[facility]ES [facility]PITAL UNIVERSIT - 9 9 [facility] T HOSPITAL UNIVERSIT - 9 9 [facility] T OFFICE 29825 [facility] 9 9 [facility] T VISIT 15 MINUT[facility] EMERGENCY 73186 [facility], 9 9 KONSTANTIN RANGEL B [facility] EMERGENCY T VISIT [facility] INC HIGH/URGE NT SEVERITY EMERGENCY 62932 [place] 9 9 [facility] T VISIT LOW/MODER SEVERITY HOSPITAL [facility] 9 9 [facility] T EMERGENCY 09146 [place] 9 9 [facility] T VISIT MODERATE SEVERITY HOSPITAL [place] - 9 9 [facility] T EMERGENCY 57455 [facility], 9 9 KONSTANTIN RANGEL Lewis [facility] EMERGENCY T VISIT PHYS INC HIGH/URGE NT SEVERITY HOSPITAL [place] - 9 9 [facility] T EMERGENCY 48852 [facility] [place], 9 9 KONSTANTIN Tuttle [facility] EMERGENCY T VISIT PHYS INC MODERATE SEVERITY EMERGENCY 28971 [place] 9 9 [facility] T VISIT LOW/MODER SEVERITY OFFICE 18367 [facility] 9 9 ROSARIO PONCE T VISIT 15 MINUTES OFFICE 07348 [facility] OUT[facility] 9 9 ROSARIO PONCE T VISIT 15 MINUTES EMERGENCY 01621 [facility]JENN[facility]ER[place] 8 8 [facility] T VISIT LOW/MODER SEVERITY EMERGENCY 46315 [facility] [place], 8 8 KONSTANTIN Tuttle [facility] EMERGENCY T VISIT PHYS INC HIGH/URGE NT SEVERITY HOSPITAL [place] - 8 8 [facility] T OFFICE 21070 [facility] OUTPATI[facility] 8 8 ROSARIO PONCE T NEW 30 MINUTES EMERGENCY 47758 [place] 8 8 [facility] T VISIT LIMITED/M INOR PROB HOSPITAL [place] - 8 8 [facility] T EMERGENCY 84423 [facility], 8 8 KONSTANTIN Montague [facility] EMERGENCY T VISIT PHYS INC MODERATE SEVERITY PERIODIC 35743 DHS/CO [place] PREVENTIV 8 8 [facility] HEALTH E MED EST CENTRAL PATIENT BANK ACCT [facility] [phone] T OFFICE 40958 DHS/[facility] [place] OUTPATIEN 8 8 [facility] NEW 10 CENTRAL MINUTES BANK ACCT [facility] T OFFICE 48888 INÉS CONTE OUTPATIEN 8 8 DON R DON R T VISIT 15 MINUTES
--- OUTSIDE RECORDS SUMMARY | 2017-05-30 06:53 | External Medical Summary Rpt | CCD ---
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 BAMBI LACY N VENOUS 6 [facility] BLOOD INC INC VENIPUNCT URE CULTURE 78055 BAMBI LACY BACTERIAL 6 [facility] INC INC QUANTTATI VE COLONY COUNT URINE URNLS DIP 40640 BAMBI LACY 6 [facility] STICK/TAB INC INC LET REAGENT AUTO MICROSCOP Y 70332 ROSAURA BRANNON NONSTRESS 6 SALUD FUNEZ RANDY TEST GONADOTRO 06973 BAMBI LACY PIN 6 [facility] CHORIONIC [place] [address] BAMBI LACY ESTRIOL 6 [facility] INC INC COLLECTIO 15180 BAMBI LACY N VENOUS 6 [facility] BLOOD INC INC VENIPUNCT URE ALPHA-FET 34601 BAMBI LACY OPROTEIN 6 [facility] SERUM INC INC BLOOD 91749 BAMBI LACY COUNT 6 [facility] HEMATOCRI INC INC T COLLECTIO 69963 BAMBI LACY N VENOUS 6 [facility] BLOOD INC INC VENIPUNCT URE BLOOD 47112 BAMBI LACY TYPING 6 [facility] SEROLOGIC INC INC ABO ANTIBODY 34821 BAMBI LACY SCREEN 6 [facility] RBC EACH INC INC SERUM TECHNIQUE URINE 79436 BAMBI LACY 6 [facility] TEST INC INC VISUAL COLOR CMPRSN METH BLOOD 27955 BAMBI BAMBI COUNT 6 [facility] HEMOGLOBI INC INC N BLOOD 86722 BAMBI LACY TYPING 6 [facility] SEROLOGIC INC INC RH (D) GONADOTRO 25303 BAMBI LACY PIN 6 [facility] CHORIONIC INC INC QUANTITAT JULIANNE URNLS DIP 29567 [facility] LACY 6 [facility] STICK/TAB INC INC LET REAGENT AUTO MICROSCOP Y THERAPEUT 88327 BAMBI LCAY IC 6 [facility] PROPHYLAC INC INC TIC/DX INJECTION SUBQ/IM US PREG 13114 [place] [facility] ALL UTERUS 6 MEDICAL REAL TIME IMAGING W/IMAGE ASS DCMTN TRANSVAG US PREG 85399 ROSAURA BRANNON UTERUS 5 SALUD FUNEZ RANDY REAL TIME W/IMAGE DCMTN TRANSVAG IADNA 10151 BIO BIO GARDNEREL 5 REFERNCE REFERNCE LA LABORATOR LABORATOR VAGINALIS IES IES AMPLIFIED PROBE TQ CULTURE 71199 ROSAURA BRANNON CHLAMYDIA 5 SALUD FUNEZ RANDY ANY SOURCE CYTP C/V 20824 BIO BIO AUTO THIN 5 REFERNCE REFERNCE LYR LABORATOR LABORATOR PREPJ SCR IES IES MNL RESCR PHYS URINE 50503 ROSAURA BRANNON 5 SALUD PADILLA TEST VISUAL COLOR CMPRSN METHS IADNA 03191 BIO BIO TRICHOMON 5 REFERNCE REFERNCE LABORATOR LABORATOR VAGINALIS IES IES AMPLIFIED PROBE TECH IAADIADOO 34041 ROSAURA BRANNON MD TRICHOMON VAGINALIS IADNA 81607 BIO BIO NEISSERIA 5 REFERNCE REFERNCE LABORATOR LABORATOR GONORRHOE IES IES AE AMPLIFIED PROBE TQ IADNA NOS 74735 BIO BIO 5 REFERNCE REFERNCE AMPLIFIED LABORATOR LABORATOR PROBE TQ IES IES EACH ORGANISM IADNA 89094 BIO BIO HERPES 5 REFERNCE REFERNCE SOMPLX LABORATOR LABORATOR VIRUS IES IES AMPLIFIED PROBE TQ IADNA 31724 ROSAURA Pepe NEISSERIA 5 SALUD BRANNON MD GONORRHOE AE DIRECT PROBE TQ IADNA 28528 BIO BIO CHLAMYDIA 5 REFERNCE REFERNCE LABORATOR LABORATOR TRACHOMAT IES IES IS AMPLIFIED PROBE TQ IADNA 73178 ROSAURA BRANNON HERPES 5 SALUD ECKERTX VIRUS DIRECT PROBE TQ URINE 95675 [facility] HALL 5 PHYSICIAN DOMENICO TEST S GROUP VISUAL COLOR CMPRSN METHS COLLECTIO 45150 BAMBI LACY N VENOUS 5 [facility] BLOOD INC INC VENIPUNCT URE GONADOTRO 06258 BAMBI LACY PIN 5 [facility] [place] [address] [facility]IVERY 5 MEDICAL PREM ONLY SERV FOUNDATIO N ANESTHESI 33883 AL FRAGNETO A 5 MEDICAL REG SERV DELIVERY FOUNDATIO ONLY N LOW 741 [facility] CERVICAL 5 Y Y HOSPITAL HOSPITAL SECTION BLD BANK 67971 [facility] PHYS SVCS 5 [facility] M[facility]&/EV AL REP SBSQ 54666 [facility] 5 MEDICAL MEDICAL CARE/DAY SERV SERV 25 FOUNDATIO FOUNDATIO MINUTES N N 27799 [facility] NONSTRESS 5 MEDICAL PREM TEST SERV FOUNDATIO N 16000 [facility] NONSTRESS 5 MEDICAL PREM TEST SERV FOUNDATIO N 06442 [facility] NONSTRESS 5 MEDICAL PREM TEST SERV FOUNDATIO N SBSQ 08094 [facility] 5 MEDICAL PREM CARE/DAY SERV 25 FOUNDATIO MINUTES N SBSQ 59422 [facility] 5 MEDICAL MEDICAL CARE/DAY SERV SERV 25 FOUNDATIO FOUNDATIO MINUTES N N SBSQ 61184 [facility] 5 MEDICAL MEDICAL CARE/DAY SERV SERV 25 FOUNDATIO FOUNDATIO MINUTES N N SBSQ 71128 [facility] 5 MEDICAL MEDICAL CARE/DAY SERV SERV 25 FOUNDATIO FOUNDATIO MINUTES N N 31901 [facility] NONSTRESS 5 MEDICAL SHAYAN TEST SERV FOUNDATIO N SBSQ 87143 [facility] 5 MEDICAL MEDICAL CARE/DAY SERV SERV 25 FOUNDATIO FOUNDATIO MINUTES N N SBSQ 29082 [facility] 5 MEDICAL MEDICAL CARE/DAY SERV SERV 25 FOUNDATIO FOUNDATIO MINUTES N N [place] PREG 71134 [facility] 5 MEDICAL DAVID W/DETAIL SERV FOUNDATIO CHARLEE 1ST [place] P[place] 82803 BAMBI LACY UTERUS 5 [facility] REAL TIME INC INC F/U TRNSABDL PER FETUS 09428 BAMBI LACY BIOPHYSIC 5 [facility] AL INC INC PROFILE W/O NON-STRES S TESTING 58489 [facility] NONSTRESS 5 PHYSICIAN PHYSICIAN TEST S GROUP S GROUP AMB A0427 [facility] SERVICE 5 AMBULANCE AMBULANCE ALS SERVICE SERVICE EMERGENCY TRANSPORT LEVEL 1 [facility]0425 [facility] PER SERVICE SERVICE STATUTE MILE [facility] [address] [facility] 5 Y OF DIFFC [facility] HOS[facility] MATCH&/EV AL REP HOSPITAL G0378 BAMBI LACY OBSERVATI 5 [facility] ON INC INC SERVICE PER HOUR INJECTION J0290 [facility] LACY 5 [facility] AMPICILLI INC INC N SODIUM 500 [place] [address] [place] [facility] 5 MEDICAL MEEK UTERUS IMAGING LIMITED ASS 1/> FETUSES INJECTION J0290 [facility] LACY 5 [facility] AMPICILLI INC INC N SODIUM 500 MG BASIC 07071 BAMBI LACY METABOLIC 5 [facility] PANEL INC INC [facility] G0378 BAMBI LACY OBSERVATI 5 [facility] ON INC INC SERVICE PER HOUR EVAL C/V 23530 BAMBI LACY AMNIOTIC 5 [facility] FLUID INC INC PROTEIN QUAL EA SPECIMEN CUL BACT 75621 BAMBI LACY XCPT 5 [facility] URINE INC INC BLOOD/STO OL AEROBIC ISOL CUL BACT 76894 BAMBI LACY AEROBIC 5 [facility] ADDL INC INC METHS DEFINITIV E EA ISOL SUSCEPTIB 84751 BAMBI LACY LTY STDY 5 [facility] ANTIMICRB INC INC IAL MICRO/AGA R DILUTJ BLOOD 53001 BAMBI LACY COUNT 5 [facility] COMPLETE INC INC AUTO&AUTO DIFRNTL WBC 25305 BAMBI LACY NONSTRESS 5 [facility] TEST INC INC INITIAL 98212 ROSAURA BRANNON OBSERVATI 5 SALUD PADILLA ON CARE/DAY 50 MINUTES URNLS DIP 32465 BAMBI LACY 5 [facility] STICK/TAB INC INC LET REAGENT AUTO MICROSCOP Y THERAPEUT 25037 BAMBI LACY IC 5 [facility] PROPHYLAC INC INC TIC/DX INJECTION SUBQ/IM INJECTION J2790 BAMBI LACY RHO D IG 5 [facility] HUMAN INC INC FULL DOSE 300 MCG GLUCOSE 70258 [facility] POST 5 PHYSICIAN PHYSICIAN GLUCOSE S GROUP S GROUP DOSE BLOOD 58571 BAMBI LACY TYPING 5 [facility] SEROLOGIC INC INC RH (D) COLLECTIO 37188 BAMBI LACY N VENOUS 5 [facility] BLOOD INC INC VENIPUNCT URE ANTIBODY 94920 BAMBI LACY SCREEN 5 [facility] RBC EACH INC INC SERUM TECHNIQUE BLOOD 48765 BAMBI LACY TYPING 5 [facility] SEROLOGIC INC INC ABO 66791 [facility] NONSTRESS 5 PHYSICIAN DOMENICO TEST S GROUP US PREG 77125 [facility] UTERUS 5 PHYSICIAN DOMENICO AFTER 1ST S GROUP TRIMEST GESTATION US PREG 54985 [facility]ALL UTERUS 4 DOMENICO DOMENICO AFTER 1ST TRIMEST GESTATION ANTIBODY 79995 COMBINED COMBINED CHLAMYDIA 4 PHYSICIAN PHYSICIAN S LA S LA URINE 39772 HALL HALL 4 DOMENICO DOMENICO TEST VISUAL COLOR CMPRSN METHS CUL BACT 94947 COMBINED COMBINED XCPT 4 PHYSICIAN PHYSICIAN URINE S LA S LA BLOOD/[place] [address] ISABEL HALL TRANSVAGI 4 DOMENICO DOMENICO NAL ANTIBODY 04246 COMBINED COMBINED CHLAMYDIA 4 PHYSICIAN PHYSICIAN S LA S LA CUL BACT 03856 COMBINED COMBINED XCPT 4 PHYSICIAN PHYSICIAN URINE S LA S LA BLOOD/STO OL AEROBIC ISOL URINE 12087 ISABEL HALL 4 DOMENICO DOMENICO TEST [place] [address] ISABEL HALL TRANSVAGI 4 [facility] DOMENICO NAL ANTIBODY 76929 COMBINED COMBINED CHLAMYDIA 4 PHYSICIAN PHYSICIAN S LA S LA URINE 05556 ISABEL AHLL 4 DOMENICO DOMENICO TEST VISUAL COLOR CMPRSN METHS CUL BACT 70627 COMBINED COMBINED XCPT 4 PHYSICIAN PHYSICIAN URINE S LA S LA BLOOD/STO OL AEROBIC ISOL RADEX 32848 FAITH FAITH SHOULDER 3 MEEK MEEK COMPLETE [place] [address] [place] [address] FAITH FAITH HEAD/BRAI 3 MEEK MEEK N W/[place] [address] FAITH FAITH CERVICAL 3 MEEK MEEK SPINE W/O CONTRAST MATERIAL IAADIADOO 90047 NEUS ISAIAS NEUS ISAIAS 3 [place] [address] ISABEL HALL TRANSVAGI 3 DOMENICO DOMENICO NAL ANTIBODY 15235 COMBINED COMBINED CHLAMYDIA 3 PHYSICIAN PHYSICIAN S LA S LA CUL BACT 12407 COMBINED COMBINED XCPT 3 PHYSICIAN PHYSICIAN URINE S LA S LA BLOOD/STO OL AEROBIC ISOL SMR PRIM 08662 ISABEL HALL SRC WET 3 DOMENICO DOMENICO MOUNT NFCT AGT FITTING 92602 VALDEZBRENDAN MACARIO VALDEZ RENALDO SPECTACLE 2 S XCPT APHAKIA MONOFOCAL DETERMINA 55284 VALDEZBRENDAN MACAIRO VALDEZBRENDAN MACARIO TION 2 REFRACTIV E STATE SPHERE V2100 VALDEZBRENDAN MACARIO VALDEZ RENALDO SINGLE 2 VISION PLANO +/- 4.00 PER LENS FRAMES V2020 VALDEZBRENDAN MACARIO PURCHASES 2 OPHTH 50374 VALDEZBRENDAN MACARIO [facility] MEDICAL 2 XM&EVAL COMPRHNSV ESTAB PT 1/> IADNA 33999 PRANEETH PRANEETH STREPTOCO 1 MARINO MARINO CCUS GROUP A QUANTIFIC ATION RADIOLOGI 11514 BAMBI Tuttle EXAM 1 [facility] CHEST 2 INC INC VIEWS FRONTAL&L ATERAL URINE 77395 [facility] LACY 1 [facility] TEST INC INC VISUAL COLOR CMPRSN METHS RPR&REFIT 18474 CEE VALDEZ RENALDO G 1 VISION SPECTACLE [...] D SPHER 0.12-2.00 D CYL EA FITTING 36937 CEE SABA SPECTACLE 1 VISION ANG S XCPT APHAKIA MONOFOCAL OPHTH 70490 CEE SABA MEDICAL 1 VISION ANG XM&EVAL COMPRE NEW PT 1/> VST URINE 39955 [facility] TEST CLIN[facility] OF VISUAL ABHIJEET COLOR CMPRSN METHS LEVONORGE J7302 [facility] H[facility] STREL-RLS 1 [facility] E [facility]IN[facility] OF INTRAUTER ABHIJEET N CNTRACPT 52 MG INSERTION 31798 [facility] INTRAUTER CLINIC OF INE ABHIJEET DEVICE IUD INJECTION 9911 BAMBI LACY OF RH 1 [facility] IMMUNE INC INC GLOBULIN REPAIR OF 7569 BAMBI LACY OTHER 1 [facility] CURRENT INC INC OBSTETRIC LACERATIO N VAGINAL 69743 [facility] DELIVERY 1 [facility] ONLY CLINIC [facility] ABHIJEET NEURAXIAL 27220 [facility] ANESTH ANALG/ANE OF THE S PLND BLUE VAGINAL DELIVERY DOPPLER 59387 [facility] VELOCIMET 1 [facility] RY CLINIC OF [place]MBILICAL [place]ERY [place] PREG 63265 [facility] H[facility] UTERUS 1 [facility] REAL TIME CLINIC OF F/U ABHIJEET TRNSABDL PER FETUS 42954 [facility] BIOPHYSIC 1 [facility] AL CLINIC OF PROFILE ABHIJEET W/O NON-STRES S TESTING CUL BACT 74636 COMBINED COMBINED XCPT 0 PHYSICIAN PHYSICIAN URINE S LA S LA BLOOD/STO OL AEROBIC ISOL FTL 82069 BAMBI LACY FIBRONECT 0 [facility] IN INC INC CERVICOVA G SECRETION S SEMI-MARISABEL URNLS DIP 24462 B[facility]BI BAMBI 0 [facility] STICK/TAB INC INC LET REAGENT AUTO MICROSCOP Y 79610 BAMBI LACY NONSTRESS 0 [facility] TEST INC INC TOBACCO 98779 BAMBI NAZARIOON USE 0 [facility] CESSATION INC INC INTERMEDI ATE 3-10 MINUTES GLUCOSE 61288 [facility] TOLERANCE 0 [facility] TEST GTT CLINIC OF 3 ABHIJEET SPECIMENS GLUCOSE 50023 [facility] POST 0 [facility] GLUCOSE CLINIC OF DOSE ABHIJEET FTL 09093 BAMBI LACY FIBRONECT 0 [facility] IN INC INC CERVICOVA G SECRETION S SEMI-MARISABEL TOBACCO 59828 BAMBI BAMBI USE 0 [facility] CESSATION INC INC INTERMEDI ATE 3-10 MINUTES 94987 [facility] NONSTRESS 0 [facility] TEST CLINIC OF ABHIJEET URNLS DIP 59571 BAMBI BAMBI 0 [facility] STICK/TAB INC INC LET REAGENT AUTO MICROSCOP Y OBSERVATI 90439 [facility] ON/INPATI 0 [facility] CARE 40 MINUTES URNLS DIP 54986 BAMBI BAMBI 0 [facility] STICK/TAB INC INC LET REAGENT AUTO MICROSCOP Y 10847 BAMBI LACY NONSTRESS 0 [facility] TEST INC INC CULTURE 95310 BAMBI LACY BACTERIAL 0 [facility] INC INC QUANTTATI VE COLONY COUNT URINE IAADIADOO 21930 CONTE CONTE 0 DON DON STREPTOCO CCUS GROUP A US PREG 30141 [facility] UTERUS 0 [facility] AFTER 1ST CLINIC OF TRIMEST ABHIJEET GESTATION CYTP C/V 09230 PATHOLOGY PATHOLOGY AUTO THIN 0 & & LYR CYTOLOGY CYTOLOGY PREPJ SCR LAB LAB MNL RESCR PHYS IADNA 32844 PATHOLOGY PATHOLOGY CHLAMYDIA 0 & & CYTOLOGY CYTOLOGY TRACHOMAT LAB LAB IS AMPLIFIED PROBE TQ IADNA 90373 PATHOLOGY PATHOLOGY NEISSERIA 0 & & CYTOLOGY CYTOLOGY GONORRHOE LAB LAB AE AMPLIFIED PROBE TQ CULTURE 40577 B[facility]BI LACY BCT 0 [facility] ISOL&PRSM INC INC PTV ID ISOLATE EA URINE CULTURE 45614 BAMBI LACY BACTERIAL 0 [facility] INC INC QUANTTATI VE COLONY COUNT URINE SUSCEPTIB 32111 BAMBI LACY LTY STDY 0 [facility] ANTIMICRB INC INC IAL MICRO/AGA R DILUTJ FTL 81422 BAMBI LACY FIBRONECT 0 [facility] IN INC INC CERVICOVA G SECRETION S SEMI-MARISABEL OBSERVATI 51991 [facility] ON/INPATI 0 PHYSICIAN [employer] [facility] ENT [facility] P[facility] CARE 55 MINUTES URNLS DIP 57076 [facility] LACY 0 [facility] STICK/TAB INC INC LET REAGENT AUTO MICROSCOP Y 25488 BAMBI LACY NONSTRESS 0 [facility] TEST INC INC URINE 27830 BAMBI NAZARIOON 0 [facility] CENTER VISUAL COLOR CMPRSN METHS CULTURE 76419 [facility] CHLAMYDIA 9 Y Y [facility] HOSPITAL SOURCE CUL 52192 [facility] PRSMPTV 9 Y [facility] HOSPITAL ORGANISM SCRN W/COLONY ESTIMJ CUL 63159 [facility] PRSMPTV 9 Y Y [facility] ORGANISM SCRN W/COLONY ESTIMJ SYPHILIS 43066 [facility] TEST 9 Y Y [facility] NEMAL ANTIBODY QUAL CULTURE 84486 [facility] CHLAMYDIA 9 Y Y [facility] HOSPITAL SOURCE UNLISTED 35108 [facility] EVALUATIO 9 ADVOCACY ADVOCACY N AND [facility] T SERVICE [facility] SCR G0145 [facility] CYTOPATH 9 Y Y CERV/VAG [facility] SCR AUTO&MNL RSCR PHYS URNLS DIP 84605 [facility] [address] [place] [address] LET REAGENT AUTO MICROSCOP Y URINE 06798 [facility] [address] [place] [address] VISUAL COLOR CMPRSN METHS URINE [address]179 [facility] [address] [place] [address] VISUAL COLOR CMPRSN METHS URNLS DIP 25785 [facility] [address] [place] [address] [facility] LET REAGENT AUTO MICROSCOP Y COLLECTIO 19295 [facility] N VENOUS [address] [place] [address] VENIPUNCT URE BASIC 08616 [facility] METABOLIC 9 [facility] CALCIUM TOTAL IAADIADOO 90608 [facility] [address] [place] [address] HOSPITAL CULTURE 84599 [facility] BACTERIAL [address] [place] [address] QUANTTATI VE COLONY COUNT URINE BLOOD 19732 [facility] COUNT [address] [place] [address] AUTO&AUTO DIFRNTL WBC CULTURE 82664 [facility] [address] [place] [address] AEROBIC W/ID ISOLATES IAADIADOO [id number] [facility] [address] [place] [address] CCUS GROUP A HETEROPHI [id number] [facility] M[facility] LE [address] [place] [address] ANTIBODIE [facility] S SCREEN COLLECTIO 45297 CIERRA NORTON N VENOUS [address] [place] [address] BLOOD VENIPUNCT URE COLLECTIO 19533 DIDIER VELÁSQUEZ N VENOUS 8 [facility] [place] [address] DIDIER VELÁSQUEZ AMYLASE [address] [place] [address] BLOOD 96962 DIDIER VELÁSQUEZ COUNT [address] [place] [address] AUTO&AUTO DIFRNTL WBC CULTURE 57288 DIDIER VELÁSQUEZ BACTERIAL 8 [facility] QUANTTAT[place] [address] DIDIER VELÁSQUEZ LIPASE [address] [place] [address] URNLS DIP 73379 DIDIER VELÁSQUEZ [address] [place] [address]/TAB [facility] LET REAGENT AUTO MICROSCOP Y URINE 53722 DIDIER VELÁSQUEZ [address] [place] [address] VISUAL COLOR CMPRSN METHS COMPREHEN 59087 DIDIER VELÁSQUEZ SIVE [address] [place] [address] HOSPITAL PANEL OPHTH 07024 JOSÉ MIGUEL VALDEZ, MEDICAL 8 JAMES A JAMES A XM&EVAL COMPRE NEW PT 1/> VST SPHERE V2100 JOSÉ MIGUEL VALDEZ, SINGLE 8 JAMES A JAMES A VISION PLANO +/- 4.00 PER LENS FRAMES V2020 JOSÉ MIGUEL VALDEZ, PURCHASES 8 JAMES A JAMES A FITTING 02355 JOSÉ MIGUEL VALDEZ, SPECTACLE 8 JAMES A JAMES A S XCPT APHAKIA MONOFOCAL SCREENING 15340 [facility] HEALTH PURE TONE CENTRAL AIR ONLY BANK ACCT DEPARTMEN T Encounters Encounter Start End Date Code Location Performer Type Date [facility]OSPITAL [facility] - 7 7 [facility] OUTPATIEN INC T EMERGENCY 14589 LUANNE ARGUELLO DEPT 7 7 PHYSICIAN VISIT S, [facility] HIGH SEVERITY& THREAT [facility] - 7 7 [facility] OUTPATIEN INC T EMERGENCY 66881 [facility] 7 7 [facility] DEPARTMEN INC T VISIT MODERATE SEVERITY [facility] 7 [facility] OFFICE 91573 [facility] OUTPATIEN 7 7 PHYSICIAN T VISIT S GROUP 15 MINUTES [facility] - [facility] 7 [facility] 7 [facility] EMERGENCY 74902 [facility] 7 7 [facility] T VISIT LOW/MODER SEVERITY EMERGENCY 66507 LUANNE CRUZ 7 7 PHYSICIAN DEPARTMEN S, [facility] T VISIT HIGH/URGE NT SEVERITY EMERGENCY 64285 LUANNE ARGUELLO DEPT 6 6 PHYSICIAN ELIGIO VISIT S, [facility] HIGH SEVERITY& THREAT [facility] OFFICE 48530 [facility] OUTPATIEN 6 6 PHYSICIAN RANDY T VISIT S GROUP 25 MINUTES EMERGENCY 38294 LUANNE ARGUELLO 6 6 PHYSICIAN [facility] DEPARTMEN S, [facility] T VISIT HIGH/URGE NT SEVERITY HOSP[facility] - 6 6 [facility] INPATIENT [facility] - 6 6 [facility] OUTPATIEN [facility] - 6 6 [facility]PATI[facility] OFFICE 09365 [facility] OUT[facility] 6 6 PHYSICIAN RANDY T VISIT S GROUP 15 MINUTES [facility] - 6 6 [facility] - 6 6 [facility] OUTPATIEN INC OFFICE 04633 [facility] OUTPATIEN 6 6 PHYSICIAN RANDY T VISIT S GROUP 15 MINUTES OFFICE 76057 [facility] OUT[facility]IEN 6 6 [facility] T VISIT 15 MINUTES [facility] - 6 6 [facility] OUT[facility] INC T OFFICE 42633 [facility] OUT[facility]IEN 6 6 [facility] T VISIT 15 MINUTES [facility] - 6 6 [facility] OUTPATIEN INC T [facility] - 6 6 [facility] OUTPATIEN INC T OFFICE 23426 [facility] OUT[facility]IEN 6 6 [facility] T VISIT 15 MINUTES [facility] - 6 6 [facility] OUT[facility] INC T OFFICE 63475 [facility] OUT[facility]IEN 6 6 [facility] T VISIT 15 MINUTES [facility] - 6 6 [facility] OUT[facility] INC T OFFICE 12604 [facility] OUTPATIEN 6 6 [facility] T VISIT 15 MINUTES [facility] - 6 6 [facility] OUT[facility] INC T OFFICE 04310 [facility] OUT[facility]IEN 6 6 [facility] T VISIT 15 MINUTES OFFICE 53841 [facility] OUT[facility]IEN 6 6 [facility] T VISIT 15 MINUTES [facility] - 6 6 [facility] OUTPATIEN INC T EMERGENCY 62101 LUANNE ASIF DEPT 6 6 PHYSICIAN U BRITTANIE VISIT S, [facility] HIGH SEVERITY& THREAT CRITICAL ACCESS HOSPITAL EMERGENCY [address] [facility] 6 6 [facility] T VISIT MODERATE SEVERITY OFFICE 59336 ROSAURA HANL OUTPATIEN 6 6 SALUD PADILLA T VISIT 15 MINUTES OFFICE 63181 ROSAURA PERDOMOPEL OUTPATIEN 5 5 [facility] T VISIT 15 MINUTES OFFICE 19103 [facility] OUTPATIEN 5 5 PHYSICIAN T VISIT S GROUP 15 MINUTES [facility] 5 [facility] T H[facility] UNIVERSIT [facility] 5 5 Y INPATIENT [facility]PITAL [facility] T OFFICE 53752 [facility] HALL OUTPATIEN 5 5 PHYSICIAN DOMENICO T VISIT S GROUP 15 MINUTES OFFICE 90510 [facility] OUTPATIEN 5 5 PHYSICIAN DOMENICO T VISIT S GROUP 15 MINUTES [facility] - 5 5 [facility] T OFFICE 28866 [facility] OUTPATIEN 5 5 PHYSICIAN T VISIT 5 S GROUP MINUTES [facility] - 5 5 [facility] T EMERGENCY 58165 [facility] 5 5 [facility] T VISIT LOW/MODER SEVERITY EMERGENCY 41377 [facility] ELIZONDO KAYDEN 5 5 [facility] T VISIT P MODERATE SEVERITY OFFICE 42216 [facility] OUTPATIEN 5 5 PHYSICIAN DOMENICO T VISIT S GROUP 15 MINUTES OFFICE 60303 [facility] OUTPATIEN 5 5 PHYSICIAN DOMENICO T VISIT S GROUP 15 MINUTES OFFICE 93507 [facility] OUTPATIEN 5 5 PHYSICIAN DOMENICO T VISIT S GROUP 15 MINUTES OFFICE 56822 [facility] OUTPATIEN 4 4 PHYSICIAN DOMENICO T VISIT S GROUP 15 MINUTES OFFICE 00456 [facility] OUTPATIEN 4 4 PHYSICIAN DOMENICO T VISIT S GROUP 15 MINUTES OFFICE 02256 ISABEL HULLE OUTPATIEN 4 4 DOMENICO DOMENICO T VISIT 25 MINUTES OFFICE 26235 ROSAURA LOPEZEN 4 4 SALUD PADILLA T VISIT 15 MINUTES EMERGENCY 49213 [facility] 4 4 [facility] EMERGENCY T VISIT PHYS HIGH/URGE NT SEVERITY EMERGENCY 02282 ALONDRA ARGUELLO 4 4 KONSTANTIN ELIGIO DEPARTMEN EMERGENCY T VISIT PHYS HIGH/URGE NT SEVERITY OFFICE 68066 ISABEL HULLE OUTPATIEN 4 4 DOMENICO DOMENICO T VISIT 25 MINUTES OFFICE 73709 ISABEL HULLE OUTPATIEN 4 4 DOMENICO DOMENICO T VISIT 25 MINUTES Emergency SHIVA Zapata (ER) 3 14:27 3 14:48 [facility] EMERGENCY 66252 AMPARO ZAPATA 3 3 III [facility] III [facility] DEPARTMEN T VISIT MODERATE SEVERITY Emergency SHIVA Arguello MD (ER) 3 00:37 3 00:47 [facility] EMERGENCY 14885 YUMIKO ARGUELLO 3 3 ELIGIO ELIGIO DEPARTMEN T VISIT HIGH/URGE NT SEVERITY Emergency SHIVA Zapata (ER) 3 15:29 3 15:51 [facility] EMERGENCY 02799 AMPARO ZAPATA 3 3 III [facility] III [facility] DEPARTMEN T VISIT HIGH/URGE NT SEVERITY OFFICE 35346 ISABEL HALL OUTPATIEN 3 3 DOMENICO DOMENICO T VISIT 25 MINUTES OFFICE 69978 NEUS ISAIAS OUTPATIEN 3 3 T VISIT 25 MINUTES OFFICE 85775 [facility]ACK[facility] BRACKEN OUTPATIEN [address] [place] [address] T VISIT HIGH [facility] MIN[facility] OFFICE 69556 NEUS ISAIAS OUTPATIEN 3 3 T NEW 20 MINUTES OFFICE 57007 [facility]ACK[facility] BRACK[facility] OUTPATIEN [address] [place] [address] T VISIT HIGH [facility] MIN[facility] OFFICE 15190 [facility]ACK[facility] OUTPATIEN [address] [place] [address] T VISIT H[facility] MIN[facility] OFFICE 33924 [facility]ACK[facility] BRACKEN OUTPATIEN [address] [place] [address] T VISIT HIGH [facility] 15 [facility] MIN[facility]ES OFFICE 70215 ISABEL HALL OUTPATIEN 3 3 DOMENICO DOMENICO T VISIT 25 MINUTES OFFICE 93546 BRACKEN BRACKEN OUTPATIEN 3 3 [facility] T VISIT HIGH HIGH 10 [facility] MINUTES OFFICE 79301 LIZZY BALL OUTPATIEN 3 3 EVONNE DOUGLASS T VISIT 15 MINUTES OFFICE 43859 BRACKEN BRACKEN OUTPATIEN 3 3 [facility] T VISIT HIGH HIGH 15 [facility] MINUTES OFFICE 75072 BRACKEN BRACKEN OUTPATIEN [address] [place] [address] T VISIT HIGH [facility]IGH 10 [facility] MINUTES OFFICE 52570 BRACKEN BRACKEN OUTPATIEN [address] [place] [address] T VISIT HIGH [facility]IGH 10 [facility] MINUTES OFFICE 11728 [facility]ACKEN BRACKEN OUTPATIEN [address] [place] [address] T VISIT HIGH [facility]IGH 15 [facility] MINUTES OFFICE 74502 BRACKEN BRACKEN OUTPATIEN [address] [place] [address] T VISIT HIGH [facility] 10 [facility] MIN[facility]ES OFFICE 27510 BRACKEN BRACKEN OUTPATIEN [address] [place] [address] T VISIT HIGH [facility]IGH 15 [facility] MINUTES OFFICE 61359 BRACKEN BRACKEN OUTPATIEN [address] [place] [address] T VISIT HIGH [facility] 10 [facility] MINUTES OFFICE 35594 BRACKEN BRACKEN OUTPATIEN [address] [place] [address] T VISIT HIGH [facility]IGH 10 [facility] MINUTES OFFICE 66142 BRACKEN BRACKEN OUTPATIEN [address] [place] [address] T VISIT HIGH [facility] 10 [facility] MINUTES OFFICE 56424 BRACKEN BRACKEN OUTPATIEN [address] [place] [address] T VISIT [facility]IGH [facility] MINUTES OFFICE 58113 PRANEETH PRANEETH OUTPATIEN 2 2 MARINO MARINO T VISIT 15 MINUTES OFFICE 83662 PRANEETH PRANEETH OUTPATIEN 1 1 MARINO MARINO T VISIT 10 MINUTES EMERGENCY 90293 TRICIA ALMEIDA FIDELINA 1 1 EMERGENCY DEPART[facility] SERVICES T VISIT MODERATE SEVERITY EMERGENCY 34171 [facility] 1 1 [facility] T VISIT LOW/MODER SEVERITY [facility]PITAL [facility] - [facility] 1 [facility] T OFFICE 10832 [facility] LACY OUTPATIEN 1 1 [facility] 10 MINUTES OFFICE 72287 [facility] LACY OUTPATIEN 1 1 [facility] 10 MINUTES OFFICE 76671 [facility] 15 [place] MINUTES [facility] 1 [facility]IENT [facility] OFFICE 45360 [facility] 1 [facility] 15 [place] MINUTES OFFICE 97404 [facility] H[facility] 0 [facility] 15 [place] MINUTES OFFICE 40460 [facility] 0 [facility] 15 [place] MINUTES OFFICE 28790 [facility] H[facility] 0 [facility] 15 [place] MINUTES OFFICE 23249 INÉS ETIENNEHENS OUTPATIEN 0 0 DON DON T VISIT 15 MINUTES OFFICE 55598 [facility] 0 [facility] 15 [place] MINUTES [facility]OSPITAL [facility] - 0 0 [facility] T OFFICE 21574 [facility] LACY OUTPATIEN 0 0 [facility] 15 MINUTES OFFICE 44147 [facility] LACY OUTPATIEN 0 0 [facility] 15 MINUTES OFFICE 13445 WOMEN'S OUTPATIEN 0 0 HEALTH T VISIT 5 CLINIC OF MINUTES [place] OFFICE 30986 [facility] H[facility]PAT[facility] 0 0 [facility] T VISIT [facility] 15 [place] MINUTES [facility] - 0 0 [facility] T OFFICE 87721 [facility] LACY OUTPATIEN 0 0 [facility] 15 [facility]ES [facility] - 0 0 [facility] T OFFICE 27982 IN[facility] CONTE OUTPATIEN 0 0 DON DON T VISIT 15 MINUTES OFFICE 56192 [facility] LACY OUTPATIEN 0 0 [facility] 15 MINUTES OFFICE 90089 INÉS COLEMANS OUTPATIEN 0 0 DON DON T VISIT 15 MINUTES OFFICE 18776 [facility] LACY OUTPATIEN 0 0 [facility] - 0 0 [facility] T OFFICE 95488 [facility] LACY OUTPATIEN 0 0 [facility] 10 MINUTES OFFICE 71494 [facility] LACY OUTPATIEN 0 0 [facility] T NEW 10 [facility] MINUTES HOSPITAL UNIVERSIT - 9 9 [facility] T HOSPITAL UNIVERSIT - 9 9 [facility] T OFFICE 30446 [facility] 9 9 [facility] T VISIT 15 MINUT[facility] EMERGENCY 30793 [facility], 9 9 KONSTANTIN RANGEL B [facility] EMERGENCY T VISIT [facility] HIGH/URGE NT SEVERITY EMERGENCY 26072 [facility] 9 9 [facility] T VISIT LOW/MODER SEVERITY HOSPITAL [facility] 9 9 [facility] T EMERGENCY 14900 [place] 9 9 [facility] T VISIT MODERATE [facility]VERITY [facility] [place] - 9 9 [facility] T EMERGENCY 42541 [facility], 9 9 KONSTANTIN RANGEL Lewis [facility] EMERGENCY T VISIT PHYS INC HIGH/URGE NT SEVERITY HOSPITAL [place] - 9 9 [facility] T EMERGENCY 35974 [facility] [place], 9 9 KONSTANTIN Tuttle [facility] EMERGENCY T VISIT PHYS INC MODERATE SEVERITY EMERGENCY 11572 [place] 9 9 [facility] T VISIT LOW/MODER SEVERITY OFFICE 33285 [facility] OUTPAT[facility]EN 9 9 ROSARIO PONCE T VISIT 15 MINUTES OFFICE 27852 [facility] OUT[facility] 9 9 ROSARIO PONCE T VISIT 15 MINUTES EMERGENCY 74440 [facility] 8 8 [facility] T VISIT LOW/MODER SEVERITY EMERGENCY 49850 [facility] [place], 8 8 KONSTANTIN Tuttle [facility] EMERGENCY T VISIT PHYS INC HIGH/URGE NT SEVERITY [facility]OSPITAL [place] - 8 8 [facility] T OFFICE 49041 [facility] OUTPATI[facility] 8 8 ROSARIO PONCE T NEW 30 MINUTES EMERGENCY 66382 [place] 8 8 [facility] T VISIT LIMITED/M INOR PROB HOSPITAL [place] - 8 8 [facility] T EMERGENCY 99747 [facility] [place], 8 8 KONSTANTIN Montague [facility] EMERGENCY T VISIT PHYS INC MODERATE SEVERITY PERIODIC 87389 [facility] [place] [facility] 8 8 [facility] EST C[facility] PATIENT BANK ACCT [facility] [phone] T OFFICE 17714 [facility] [place] OUTPATIEN 8 8 [facility] [place] [facility] T NEW 10 CENTRAL MINUTES BANK ACCT [facility] T OFFICE 27074 INÉS CONTE OUTPATIEN 8 8 DON R DON R T VISIT 15 MINUTES
--- OUTSIDE RECORDS SUMMARY | 2017-05-30 07:01 | External Medical Summary Rpt | CCD ---
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 SERVICE SERVICE STATUTE MILE INITIAL 78974 [facility] 6 PHYSICIAN MAT CARE/DAY S GROUP 50 MINUTES INITIAL 84346 [facility] 6 PHYSICIAN EUG CARE/DAY S GROUP 50 MINUTES ECG 90286 BAMBI MÁRQUEZ JR ROUTINE 6 [facility] W/LEAST P 12 LDS I&R ONLY RADIOLOGI 20292 [place] [facility] 6 MEDICAL EXAMINATI IMAGING ON CHEST ASS SINGLE VIEW FRONTAL CT THORAX 54064 [place] [address] MEDICAL W/CONTRAS IMAGING T ASS MATERIAL CRITICAL 55201 [facility] 6 PHYSICIAN DORETHA ILL/INJUR S, PLLC ED PATIENT INIT 30-[address] [place] [address] [place] [facility] ABDOMEN & 6 MEDICAL PELVIS IMAGING W/O [place] L[place] 68268 [facility] TRICIA SURG 6 JAY & ALBIN PATHOLOGY [facility] GROSS&ELIGIO ROSCOPIC EXAM GROUND A0425 [facility] 6 AMBULANCE AMBULANCE PER SERVICE SERVICE STATUTE MILE AMB A0427 [facility] SERVICE 6 AMBULANCE AMBULANCE ALS SERVICE SERVICE EMERGENCY TRANSPORT LEVEL 1 POSTPARTU 93506 [facility] 6 PHYSICIAN [place]ED[place] [address] BAMBI LACY INFUSION 6 [facility] THERAPY/P INC INC ROPHYLAXI S /DX 1ST TO 1 HR DRUG TST G0477 BAMBI LACY PRESUMP;C 6 [facility] PBL BEING INC INC READ DC OPT OBV ONLY 93544 [facility] HARPEL NONSTRESS 6 PHYSICIAN RANDY TEST S GROUP HEMOGLOBI 96991 BAMBI LACY N 6 [facility] GLYCOSYLA INC INC CHAVEZ A1C COLLECTIO 00312 BAMBI Kohli VENOUS 6 [facility] BLOOD INC INC VENIPUNCT URE 38197 [facility] HARPEL NONSTRESS 6 PHYSICIAN RANDY TEST S GROUP 93542 [facility] NONSTRESS 6 PHYSICIAN PHYSICIAN TEST S GROUP S GROUP COLLECTIO 30835 BAMBI Kohli VENOUS 6 [facility] BLOOD INC INC VENIPUNCT URE GLUCOSE 51119 BAMBI LACY QUANTITAT 6 [facility] JULIANNE BLOOD INC INC XCPT REAGENT STRIP CUL 42020 [facility] HARPEL PRSMPTV 6 PHYSICIAN RANDY PTHGNC S GROUP ORGANISM SCRN W/COLONY ESTIMJ 95368 [facility] HARPEL NONSTRESS 6 PHYSICIAN RANDY TEST S GROUP PARTICLE 20483 BAMBI LACY AGGLUTINA 6 [facility] TION INC INC SCREEN EACH ANTIBODY 62871 [facility] NONSTRESS 6 PHYSICIAN PHYSICIAN TEST S GROUP S GROUP GLUCOSE 60393 BAMBI LACY TOLERANCE 6 [facility] TEST GTT INC INC 3 SPECIMENS COLLECTIO 74183 BAMBI LACY N VENOUS 6 [facility] BLOOD INC INC VENIPUNCT URE GLUCOSE 68561 BAMBI LACY TOLERANCE 6 [facility] EA ADDL INC INC BEYOND 3 SPECIMENS HEMOGLOBI 85093 BAMBI LACY N 6 [facility] GLYCOSYLA INC INC CHAVEZ A1C COLLECTIO 51659 BAMBI LACY N VENOUS 6 [facility] BLOOD INC INC VENIPUNCT URE BLOOD 02496 BAMBI LACY TYPING 6 [facility] SEROLOGIC INC INC RH (D) THERAPEUT 45728 BAMBI LACY IC 6 [facility] PROPHYLAC INC INC TIC/DX INJECTION SUBQ/IM INJECTION J2790 BAMBI LACY RHO D IG 6 [facility] HUMAN INC INC FULL DOSE 300 MCG ANTIBODY 04969 BAMBI LACY SCREEN 6 [facility] RBC EACH INC INC SERUM TECHNIQUE BLOOD 39738 BAMBI LACY TYPING 6 [facility] SEROLOGIC INC INC ABO 09560 ROSAURA BRANNON NONSTRESS 6 SALUD FUNEZ RANDY TEST DRUG TST G0477 BAMBI LACY PRESUMP;C 6 [facility] PBL BEING INC INC READ DC OPT OBV ONLY FTL 90198 BAMBI LACY FIBRONECT 6 [facility] IN INC INC CERVICOVA G SECRETION S SEMI-MARISABEL 61564 ROSAURA BRANNON NONSTRESS 6 SALUD FUNEZ RANDY TEST BLOOD 76519 BAMBI LACY COUNT 6 [facility] COMPLETE INC INC AUTO&AUTO DIFRNTL WBC GLUCOSE 38220 BAMBI LACY POST 6 [facility] GLUCOSE INC INC DOSE URINLS 57390 ROSAURA BRANNON DIP 6 SALUD FUNEZ RANDY STICK/TAB LET REAGNT NON-AUTO MICRSCPY SMR PRIM 42366 ROSAURA BRANNON SRC WET 6 SALUD FUNEZ RANDY MOUNT NFCT AGT COLLECTIO 55962 BAMBI LACY N VENOUS 6 [facility] BLOOD INC INC VENIPUNCT URE CULTURE 12906 BAMBI LACY BACTERIAL 6 [facility] INC INC QUANTTATI VE COLONY COUNT URINE 83606 ROSAURA BRANNON NONSTRESS 6 SALUD FUNEZ RANDY TEST URNLS DIP 27248 [facility]BI LACY 6 [facility] STICK/TAB INC INC LET REAGENT AUTO MICROSCOP Y GONADOTRO 05064 BAMBI LACY PIN 6 [facility] CHORIONIC INC INC QUANTITAT JULIANNE COLLECTIO 15285 BAMBI LACY N VENOUS 6 [facility] BLOOD INC INC VENIPUNCT URE ALPHA-FET 11612 BAMBI LACY OPROTEIN 6 [facility] [address] BAMBI LACY ESTRIOL 6 [facility] INC INC BLOOD 23980 BAMBI LACY COUNT 6 [facility] HEMOGLOBI INC INC N URINE 99913 BAMBI LACY 6 [facility] TEST INC INC VISUAL COLOR CMPRSN METHS COLLECTIO 55665 BAMBI LACY N VENOUS 6 [facility] BLOOD INC INC VENIPUNCT URE BLOOD 05767 BAMBI LACY COUNT 6 [facility] HEMATOCRI INC INC T BLOOD 24403 BAMBI LACY TYPING 6 [facility] SEROLOGIC INC INC RH (D) GONADOTRO 21242 BAMBI LACY PIN 6 [facility] CHORIONIC INC INC QUANTITAT JULIANNE BLOOD 82604 BAMBIDANNI NAZARIOON TYPING 6 [facility] SEROLOGIC INC INC ABO ANTIBODY 84419 BAMBIDANNI LACY SCREEN 6 [facility] RBC EACH INC INC SERUM TECHNIQUE THERAPEUT 05546 BAMBI LACY IC 6 [facility] PROPHYLAC INC INC TIC/DX INJECTION SUBQ/IM URNLS DIP 15728 [facility] LACY 6 [facility] STICK/TAB INC INC LET REAGENT AUTO MICROSCOP Y US PREG 79301 [place] [facility] [place] UTERUS 6 MEDICAL REAL TIME IMAGING W/IMAGE ASS DCMTN TRANSVAG US PREG 13170 ROSAURA BRANNON UTERUS 5 SALUD FUNEZ RANDY REAL TIME W/IMAGE DCMTN TRANSVAG IADNA 21902 BIO BIO GARDNEREL 5 REFERNCE REFERNCE LA LABORATOR LABORATOR VAGINALIS IES IES AMPLIFIED PROBE TQ CULTURE 55782 ROSAURA BRANNON CHLAMYDIA 5 SALUD FUNEZ RANDY ANY SOURCE CYTP C/V 07012 BIO BIO AUTO THIN 5 REFERNCE REFERNCE LYR LABORATOR LABORATOR PREPJ SCR IES IES MNL RESCR PHYS IADNA 33675 BIO BIO NEISSERIA 5 REFERNCE REFERNCE LABORATOR LABORATOR GONORRHOE IES IES AE AMPLIFIED PROBE TQ IADNA NOS 62749 BIO BIO 5 REFERNCE REFERNCE AMPLIFIED LABORATOR LABORATOR PROBE TQ IES IES EACH ORGANISM IADNA 86526 BIO BIO TRICHOMON 5 REFERNCE REFERNCE LABORATOR LABORATOR VAGINALIS IES IES AMPLIFIED PROBE TECH IAADIADOO 70606 ROSAURA KAPLAN R 5 SALUD BRANNON MD TRICHOMON VAGINALIS IADNA 80309 BIO BIO HERPES 5 REFERNCE REFERNCE SOMPLX LABORATOR LABORATOR VIRUS IES IES AMPLIFIED PROBE TQ IADNA 82693 ROSAURA Pepe NEISSERIA 5 SALDU BRANNON MD GONORRHOE AE DIRECT PROBE TQ URINE 56774 ROSAURA BRANNON 5 SALUD FUNEZ RANDY TEST VISUAL COLOR CMPRSN METHS IADNA 92564 BIO BIO CHLAMYDIA 5 REFERNCE REFERNCE LABORATOR LABORATOR TRACHOMAT IES IES IS AMPLIFIED PROBE TQ IADNA 96708 ROSAURA BRANNON HERPES 5 SALUD FUNEZ RANDY SIMPLX VIRUS DIRECT PROBE TQ URINE 90164 [facility] HALL 5 PHYSICIAN DOMENICO TEST S GROUP VISUAL COLOR CMPRSN METHS GONADOTRO 90483 BAMBI LACY PIN 5 [facility] CHORIONIC INC INC QUALITATI VE COLLECTIO 57847 BAMBI LACY N VENOUS 5 [facility] BLOOD INC INC VENIPUNCT URE 68861 [facility] DELIVERY 5 MEDICAL PREM ONLY SERV FOUNDATIO N ANESTHESI 37811 [place] FRAGNET[place] A 5 MEDICAL REG SERV DELIVERY FOUNDATIO ONLY N LOW 741 [facility] ALICE CERVICAL 5 Y Y HOSPITAL HOSPITAL SECTION BLD BANK 27712 [facility] SVCS 5 Y OF DIFFC [place] [facility] MATCH&/EV AL REP 03442 [facility] NONSTRESS 5 MEDICAL PREM TEST SERV FOUNDATIO N SBSQ 59474 [place] [address] MEDICAL MEDICAL CARE/DAY SERV SERV 25 FOUNDATIO FOUNDATIO MINUTES N N 06916 [facility] NONSTRESS 5 MEDICAL PREM TEST SERV FOUNDATIO N 23040 [facility] NONSTRESS 5 MEDICAL PREM TEST SERV FOUNDATIO N SBSQ 79334 [facility] 5 MEDICAL PREM CARE/DAY SERV 25 FOUNDATIO MINUTES N SBSQ 43631 [facility] 5 MEDICAL MEDICAL CARE/DAY SERV SERV 25 FOUNDATIO FOUNDATIO MINUTES N N SBSQ 76510 [facility] 5 MEDICAL MEDICAL CARE/DAY SERV SERV 25 FOUNDATIO FOUNDATIO MINUTES N N SBSQ 27188 [facility] 5 MEDICAL MEDICAL CARE/DAY SERV SERV 25 FOUNDATIO FOUNDATIO MINUTES N N SBSQ 58282 [facility] 5 MEDICAL MEDICAL CARE/DAY SERV SERV 25 FOUNDATIO FOUNDATIO MINUTES N N 09210 [facility] NONSTRESS 5 MEDICAL SHAYAN TEST SERV FOUNDATIO N US PREG 09680 [facility] UTERUS 5 MEDICAL DAVID W/DETAIL SERV FOUNDATIO CHARLEE 1ST N GESTATION SBSQ 65503 [facility] 5 MEDICAL MEDICAL CARE/DAY SERV SERV 25 FOUNDATIO FOUNDATIO MINUTES N N AMB A0427 [facility] SERVICE 5 AMBULANCE AMBULANCE ALS SERVICE SERVICE EMERGENCY TRANSPORT LEVEL 1 HOSPITAL G0378 BAMBI LACY OBSERVATI 5 [facility] ON INC INC SERVICE PER HOUR INJECTION J0290 [facility]BI LACY 5 [facility] AMPICILLI INC INC N SODIUM 500 [place] [address] BAMBI LACY BIOPHYSIC 5 [facility] AL INC INC PROFILE W/[place] [address] [place] [facility] 5 MEDICAL MEEK UTERUS IMAGING LIMITED ASS 1/> FETUSES US PREG 59177 BAMBI LACY UTERUS 5 [facility] REAL TIME INC INC F/U TRNSABDL PER FETUS BLD BANK 38148 [facility] SV[facility] 5 Y OF DIFFC [facility] HOS[facility] MATCH&/EV AL REP GROUND A0425 [facility]ULANCE AMBULANCE PER SERVICE SERVICE STATUTE MILE 82719 [facility] NONSTRESS 5 PHYSICIAN PHYSICIAN TEST S GROUP S GROUP 10849 BAMBI LACY NONSTRESS 5 [facility] TEST INC INC INITIAL 06665 ROSAURA BRANNON OBSERVATI 5 SALUD [place]AD[place] ON CARE/DAY 50 MINUTES URNLS DIP 71206 [facility]AMBI LACY 5 [facility] STICK/TAB INC INC LET REAGENT AUTO MICROSCOP Y SUSCEPTIB 36282 BAMBI LACY LTY STDY 5 [facility] ANTIMICRB INC INC IAL MICRO/AGA R DILUTJ BASIC 97789 BAMBI LACY METABOLIC 5 [facility] PANEL INC INC CALCIUM TOTAL BLOOD 86944 BAMBI LACY COUNT 5 [facility]P COMPLETE INC INC AUTO&AUTO DIFRNTL WBC INJECTION J0290 BAMBI LACY 5 [facility] AMPICILLI INC INC N SODIUM 500 [facility] G0378 BAMBI LACY OBSERVATI 5 [facility] ON INC INC SERVICE PER HOUR EVAL C/V 83594 BAMIB LACY AMNIOTIC 5 [facility]OSP FLUID INC INC PROTEIN QUAL EA SPECIMEN CUL BACT 40602 BAMBI LACY XCPT 5 [facility] URINE INC INC BLOOD/STO OL AEROBIC ISOL CUL BACT 50409 BAMBI LACY AEROBIC 5 [facility] ADDL INC INC METHS DEFINITIV E EA ISOL BLOOD 12288 BAMBI LACY TYPING 5 [facility] SEROLOGIC INC INC RH (D) COLLECTIO 00551 BAMBI LACY N VENOUS 5 [facility] BLOOD INC INC VENIPUNCT URE GLUCOSE 25401 [facility] POST 5 PHYSICIAN PHYSICIAN GLUCOSE S GROUP S GROUP DOSE INJECTION J2790 BAMBI LACY RHO D IG 5 [facility]OSP HUMAN INC INC FULL DOSE 300 MCG ANTIBODY 84764 BAMBI LACY SCREEN 5 [facility] RBC EACH INC INC SERUM TECHNIQUE BLOOD 82652 BAMBI LACY TYPING 5 [facility] SEROLOGIC INC INC ABO THERAPEUT 99031 BAMBI LACY IC 5 [facility] PROPHYLAC INC INC TIC/DX INJECTION SUBQ/IM 12714 [facility] HALL NONSTRESS 5 PHYSICIAN DOMENICO TEST S GROUP US PREG 14991 [facility] HALL UTERUS 5 PHYSICIAN DOMENICO AFTER 1ST S GROUP [place]IMEST [place]STATION [place] PREG 75887 HALL HALL UTERUS 4 DOMENICO DOMENICO AFTER 1ST TRIMEST GESTATION CUL BACT 91658 COMBINED COMBINED XCPT 4 PHYSICIAN PHYSICIAN URINE S LA S LA BLOOD/STO OL AEROBIC ISOL URINE 25684 HALL HALL 4 DOMENICO DOMENICO TEST VISUAL COLOR CMPRSN METHS ANTIBODY 23321 COMBINED COMBINED CHLAMYDIA 4 [place] [address] ISABEL HALL TRANSVAGI 4 DOMENICO DOMENICO NAL ANTIBODY 69747 COMBINED COMBINED CHLAMYDIA 4 PHYSICIAN PHYSICIAN S LA S LA URINE 16647 ISABEL HALL 4 DOM[facility] DOMEN[place] TEST VISUAL COLOR CMPRSN METHS CUL BACT 70567 COMBINED COMBINED XCPT 4 PHYSICIAN PHYSICIAN URINE S LA S LA BLOOD/[place] [address] ISABEL HALL TRANSVAGI 4 DOMENICO DOMENICO NAL ANTIBODY 87107 COMBINED COMBINED CHLAMYDIA 4 PHYSICIAN PHYSICIAN S LA S LA CUL BACT 39986 COMBINED COMBINED XCPT 4 PHYSICIAN PHYSICIAN URINE S LA S LA BLOOD/STO OL AEROBIC ISOL URINE 08064 ISABEL HALL 4 DOM[facility] DOM[facility] [address] FAITH FAITH HEAD/BRAI 3 MEEK MEEK N W/O CONTRAST MATERIAL RADEX 30659 FAITH FAITH SHOULDER 3 MEEK MEEK COMPLETE [place]IM[place] [address] [place] [address] FAITH FAITH CERVICAL 3 MEEK MEEK SPINE W/O CONTRAST MATERIAL IAADIADOO 31109 NEUS ISAIAS NEUS ISAIAS 3 [place] [address] ISABEL HALL TRANSVAGI 3 DOMENICO DOMENICO NAL ANTIBODY 64182 COMBINED COMBINED CHLAMYDIA 3 PHYSICIAN PHYSICIAN S LA S LA CUL BACT 99738 COMBINED COMBINED XCPT 3 PHYSICIAN PHYSICIAN URINE S LA S LA BLOOD/STO OL AEROBIC ISOL SMR PRIM 14746 ISABEL HALL SRC WET 3 DOMENICO DOMENICO MOUNT NFCT AGT OPHTH 23678 VALDEZBRENDAN MACARIO [facility] MEDICAL 2 XM&EVAL COMPRHNSV ESTAB PT 1/> FRAMES V2020 [facility] RENALDO [facility] PURCHASES 2 DETERMINA 50590 [facility] TION 2 REFRACTIV E STATE FITTING 43143 VAL[address]AN [address] [facility] SPECTACLE 2 S XCPT APHAKIA MONOFOCAL SPHERE V2100 VALDEZ RENALDO [facility] SINGLE 2 VISION PLANO +/- 4.00 PER LENS IADNA 11-17-201 52636 PRANEETH PRANEETH STREPTOCO 1 MARINO MARINO CCUS GROUP A QUANTIFIC ATION URINE 97649 [facility] LACY 1 [facility] TEST INC INC VISUAL COLOR CMPRSN METHS RADIOLOGI 60046 BAMBI LACY C EXAM 1 [facility] CHEST 2 INC INC VIEWS FRONTAL&L ATERAL SPHERE V2100 CEE MACARIO SINGLE 1 VISION VISION PLANO +/- 4.00 PER LENS 1 VISN V2103 CEE MACARIO PLANO 1 VISION TO+/-4.00 D SPHER 0.12-2.00 D CYL EA FRAMES V2020 CEE MACARIO PURCHASES 1 VISION RPR&REFIT 39926 CEE MACARIO G 1 VISION SPECTACLE S EXCEPT APHAKIA OPHTH 31339 CEE SABA MEDICAL 1 VISION ANG XM&EVAL COMPRE NEW PT 1/> VST FRAMES V2020 CEE SABA PURCHASES 1 VISION ANG 1 VISN V2103 CEE SABA PLANO 1 VISION ANG TO+/-4.00 D SPHER 0.12-2.00 D CYL EA SPHERE V2100 CEE SABA SINGLE 1 VISION ANG VISION PLANO +/- 4.00 PER LENS FITTING 06365 [facility]EE SABA SPECTACLE 1 VISION ANG S XCPT APHAKIA MONOFOCAL INSERTION 30789 [facility] INE [place] DEVICE IUD URINE 97980 [facility] TEST CLINIC OF VISUAL [place] COLOR CMPRSN METHS [place]GE J7302 [facility] STREL-RLS 1 [facility] E [facility] INTRAUTER [place] N CNTRACPT 52 MG INJECTION 9911 BAMBI LACY OF RH 1 [facility] IMMUNE INC INC GLOBULIN REPAIR OF 7569 BAMBI LACY OTHER 1 [facility] CURRENT INC INC OBSTETRIC LACERATIO N VAGINAL 57056 [facility] DELIVERY 1 [facility] ONLY [facility]IN[facility] OF [place] NEURAXIAL 79801 [facility] MARIEL[facility] LABOR 1 ANESTH ANALG/ANE OF THE S PLND BLUE VAGINAL DELIVERY 75077 [facility] BIOPHYSIC 1 [facility] AL [facility]IN[facility] OF PROFILE [place] W/O NON-STRES S TESTING DOPPLER 68308 [facility] VELOCIMET 1 [facility] RY CLIN[facility] OF UMBILICAL [place]ERY [place] PREG 11282 [facility] UTERUS 1 [facility] REAL TIME CLINIC OF F/U [place]HI[place] TRNSABDL PER FETUS CUL BACT 04815 COMBINED COMBINED XCPT 0 PHYSICIAN PHYSICIAN URINE S LA S LA BLOOD/STO OL AEROBIC ISOL FTL 94211 BAMBI LACY FIBRONECT 0 [facility] IN INC INC CERVICOVA G SECRETION S SEMI-MARISABEL URNLS DIP 02250 BAMBI BAMBI 0 [facility] STICK/TAB INC INC LET REAGENT AUTO MICROSCOP Y 80894 BAMBI NAZARIOON NONSTRESS 0 [facility] TEST INC INC TOBACCO 22920 BAMBI BAMBI USE 0 [facility] CESSATION INC INC INTERMEDI ATE 3-10 MINUTES GLUCOSE 04224 [facility] TOLERANCE 0 [facility] TEST GTT CLINIC OF 3 [place] SPECIMENS GLUCOSE 70342 [facility] POST 0 [facility] GLUCOSE CLINIC OF DOSE [place] FTL 10538 BAMBI LACY FIBRONECT 0 [facility] IN INC INC CERVICOVA G SECRETION S SEMI-MARISABEL URNLS DIP 15166 BAMBI BAMBI 0 [facility] STICK/TAB INC INC LET REAGENT AUTO MICROSCOP Y TOBACCO 48102 BAMBI BAMBI USE 0 [facility] CESSATION INC INC INTERMEDI ATE 3-10 MINUTES 54619 [facility] NONSTRESS 0 [facility] TEST CLIN[facility] OF [place] OBSERVATI 63123 [facility] ON/INPATI 0 [facility] CARE 40 MINUTES URNLS DIP 11303 BAMBI BAMBI 0 [facility] STICK/TAB INC INC LET REAGENT AUTO MICROSCOP Y 30502 BAMBI LACY NONSTRESS 0 [facility] TEST INC INC CULTURE 98157 BAMBI LACY BACTERIAL 0 [facility] INC INC QUANTTATI VE COLONY COUNT URINE IAADIADOO 78007 CONTE CONTE 0 DON DON STREPTOCO CCUS GROUP A US PREG 01512 [facility] H[facility] ABHIJEET GESTATION IADNA 91183 PATHOLOGY PATHOLOGY CHLAMYDIA 0 & & CYTOLOGY CYTOLOGY TRACHOMAT LAB LAB IS AMPLIFIED PROBE TQ CYTP C/V 95993 PATHOLOGY PATHOLOGY AUTO THIN 0 & & LYR CYTOLOGY CYTOLOGY PREPJ SCR LAB LAB MNL RESCR PHYS IADNA 91196 PATHOLOGY PATHOLOGY NEISSERIA 0 & & CYTOLOGY CYTOLOGY GONORRHOE LAB LAB AE AMPLIFIED PROBE TQ URNLS DIP 98157 [facility] STICK/TAB INC INC LET REAGENT AUTO MICROSCOP Y SUSCEPTIB 69335 [facility] LACY LTY STDY 0 [facility] ANTIMICRB INC INC IAL MICRO/AGA R DILUTJ 22458 [facility] NONSTRESS 0 [facility] TEST INC INC OBSERVATI 53044 [facility] HARPEL ON/INPATI 0 PHYSICIAN [facility] PCC CARE 55 MINUTES CULTURE 69933 [facility] LACY BACTERIAL 0 [facility] INC INC QUANTTATI VE COLONY COUNT URINE CULTURE 04543 [facility] BCT 0 [facility] ISOL&PRSM INC INC PTV ID ISOLATE EA URINE FTL 30320 [facility] NAZARIOON FIBRONECT 0 [facility] IN INC INC CERVICOVA G SECRETION S SEMI-MARISABEL URINE 70736 [facility] LACY 0 [facility] CENTER VISUAL COLOR CMPRSN METHS CUL 67738 [facility] PRSMPTV 9 Y Y [facility] ORGANISM SCRN W/COLONY ESTIMJ CULTURE 02859 [facility] UNIVERSIT CHLAMYDIA 9 Y Y [facility]PITAL SOURCE CULTURE 69598 [facility] UNIVERSIT CHLAMYDIA 9 Y Y [facility] HOSPITAL SOURCE UNLISTED 14158 [facility] EVALUATIO 9 ADVOCACY ADVOCACY N AND [facility]NA[facility] SYPHILIS 15684 [facility] ALICE TEST 9 Y Y [facility] NEMAL ANTIBODY QUAL SCR G0145 [facility] ALICE CYTOPATH 9 Y Y CERV/VAG [facility] SCR AUTO&MNL RSCR PHYS CUL 85047 [facility] ALICE PRSMPTV 9 Y Y [facility] ORGANISM SCRN W/COLONY ESTIMJ URINE 42374 [place] [facility] 9 [facility] VISUAL COLOR CMPRSN METHS URNLS DIP 84574 [place] 9 [facility] STICKTAB [facility] LET REAGENT AUTO MICROSCOP Y URNLS DIP 97611 [place] 9 [facility] STICKTAB [facility] LET REAGENT AUTO MICROSCOP Y CULTURE 00414 [place] BACTERIAL 9 [facility] AEROBIC W/ID ISOLATES IAADIADOO 62177 [place] [address] [place] [address] HOSPITAL URINE 42516 [place] 9 [facility] VISUAL COLOR CMPRSN METHS BASIC 26864 [place] METABOLIC 9 [facility] CALCIUM TOTAL BLOOD 96801 [place] COUNT 9 [facility] AUTO&AUTO DIFRNTL WBC CULTURE 51807 [place] BACTERIAL 9 [facility] QUANTTATI VE COLONY COUNT URINE COLLECTIO 38572 [place] N VENOUS 9 [facility] VENIPUNCT URE IAADIADOO 46870 [place] 9 [facility]US GROUP A HETEROPHI 84142 [place] LE 9 [facility] ANTIBODIE [facility] S SCREEN COLLECTIO 87427 [facility] [place] N VENOUS 9 [facility] BLOOD VENIPUNCT URE COMPREHEN 84158 [place] SIVE 8 [facility] [address] DIDIER VELÁSQUEZ AMYLASE [address] [place] [address] COLLECTIO 34178 DIDIER VELÁSQUEZ N VENOUS 8 [facility] VENIPUNCT URE CULTURE 87349 [facility] BACTERIAL [address] [place] [address] QUANTTATI VE COLONY COUNT URINE BLOOD 36068 DIDIER VELÁSQUEZ COUNT 8 [facility] AUTO&AUTO DIFRNTL WBC URINE 11835 DIDIER VELÁSQUEZ 02 [facility] [place] [address] VISUAL COLOR CMPRSN METHS URNLS DIP 21413 DIDIER VELÁSQUEZ [address] [place] [address] [facility] [place] [address] DIDIER VLEÁSQUEZ LIPASE [address] [place] [address] OPHTH 02243 JOSÉ MIGUEL VALDEZ, MEDICAL 8 JAMES A JAMES A XM&EVAL COMPRE NEW PT 1/> VST FRAMES V2020 JOSÉ MIGUEL VALDEZ, PURCHASES 8 JAMES A JAMES A FITTING 61428 JOSÉ MIGUEL VALDEZ SPECTACLE 8 JAMES A JAMES A S XCPT APHAKIA MONOFOCAL SPHERE V2100 JOSÉ MIGUEL VALDEZ, SINGLE 8 JAMES A JAMES A VISION PLANO +/- 4.00 PER LENS SCREENING 07792 [facility] TEST 8 [facility] PURE TONE CENTRAL AIR ONLY BANK ACCT DEPARTMEN T Encounters Encounter Start End Date Code Location Performer Type Date HOSPITAL [facility] Cutler 7 7 [facility] OUTPATIEN INC T HOSPITAL [facility] - 7 7 [facility] OUTPATIEN INC T EMERGENCY 58326 [facility] 7 7 [facility] DEPARTMEN INC T VISIT MODERATE SEVERITY EMERGENCY 69156 LUANNE CALDERON DEPT 7 7 PHYSICIAN VISIT S, PLLC HIGH SEVERITY& THREAT [facility] - 7 7 [facility] OUTPATIEN INC T OFFICE 42675 [facility] OUTPATIEN 7 7 PHYSICIAN T VISIT S GROUP 15 MINUTES [facility]OSP[facility] - 7 7 [facility] OUT[facility]IEN INC T EMERGENCY 16063 LUANNE CRUZ 7 7 PHYSICIAN DEPARTMEN S, [facility] T VISIT HIGH/URGE NT SEVERITY HOSPITAL [facility] - 7 7 [facility] OUTPATIEN INC T EMERGENCY 60488 [facility] 7 7 [facility] DEPARTMEN INC T VISIT LOW/MODER SEVERITY EMERGENCY 27833 LUANNE CALDERON DEPT 6 6 PHYSICIAN ELIGIO VISIT S, [facility] HIGH SEVERITY& THREAT [facility] OFFICE 13799 [facility] HARPEL OUTPATIEN 6 6 PHYSICIAN RANDY T VISIT S GROUP 25 MINUTES EMERGENCY 31765 LUANNE CALDERON 6 6 PHYSICIAN ELIGIO DEPARTMEN S, [facility] T VISIT HIGH/URGE NT SEVERITY HOSPITAL [facility] - 6 6 [facility] INPATIENT [facility] HOSPITAL [facility] - [address] [facility] - 6 6 [facility] OUTPATIEN [facility] T OFFICE 95133 [facility] OUTPATIEN 6 6 PHYSICIAN RANDY T VISIT S GROUP 15 MINUTES HOSPITAL [facility] - 6 6 [facility] OUTPATIEN INC T OFFICE 68559 [facility] OUTPATIEN 6 6 PHYSICIAN RANDY T VISIT S GROUP 15 MINUTES HOSPITAL [facility] - 6 6 [facility] OUTPATIEN [facility] T OFFICE 33271 [facility] BRANNON OUTPATIEN 6 6 SALUD FUNEZ RANDY T VISIT 15 MINUTES HOSPITAL [facility] - 6 6 [facility] OUTPATIEN INC [facility] - 6 6 [facility] OUTPATIEN INC T OFFICE 36829 [facility] PERDOMOPEL OUTPATIEN 6 6 SALUD PADILLA T VISIT 15 MINUTES [facility]OSPITAL [facility] - 6 6 [facility] OUTPATIEN INC T OFFICE 37998 [facility] HANL OUTPATIEN 6 6 SALUD [facility] T VISIT 15 MINUTES OFFICE 11377 [facility] PERDOMOPEL OUTPATIEN 6 6 SALUD PADILLA T VISIT 15 MINUTES [facility]OSPITAL [facility] - 6 6 [facility] OUTPATIEN INC T [facility] - 6 6 [facility] OUTPATIEN INC T OFFICE 07190 [facility] PERDOMOPEL OUTPATIEN 6 6 SALUD PADILLA T VISIT 15 MINUTES HOSPITAL [facility] - 6 6 [facility] OUTPATIEN INC T OFFICE 52731 [facility] PERDOMOPEL OUTPATIEN 6 6 SALUD FUNEZ RANDY T VISIT 15 MINUTES OFFICE 62434 [facility] HANL OUTPATIEN 6 6 SALUD PADILLA T VISIT 15 MINUTES EMERGENCY 44880 LUANNE ASIF DEPT 6 6 PHYSICIAN U BRITTANIE VISIT S, [facility] HIGH SEVERITY& THREAT [facility] - 6 6 [facility] OUTPATIEN INC T EMERGENCY 97138 [facility] 6 6 [facility] INC T VISIT MODERATE SEVERITY OFFICE 05607 [facility] PERDOMOPEL OUTPATIEN 6 6 SALUD PADILLA T VISIT 15 MINUTES OFFICE 56863 [facility] BRANNON OUTPATIEN 5 5 SALUD PADILLA T VISIT 15 MINUTES OFFICE 73491 [facility] OUTPATIEN 5 5 PHYSICIAN T VISIT S GROUP 15 MINUTES HOSPITAL [facility] - 5 5 [facility] OUTPATIEN INC T HOSPITAL UNIVERSIT - 5 5 Y INPATIENT [facility] - 5 5 [facility] OUTPATIEN INC T OFFICE 18524 [facility] HALL OUTPATIEN 5 5 PHYSICIAN DOMENICO T VISIT S GROUP 15 MINUTES OFFICE 52510 [facility] HALL OUTPATIEN 5 5 PHYSICIAN DOMENICO T VISIT S GROUP 15 MINUTES OFFICE 79222 [facility] OUTPATIEN 5 5 PHYSICIAN T VISIT 5 S GROUP MINUTES HOSPITAL [facility] - 5 5 [facility] OUTPATIEN INC T HOSPITAL B[facility] - 5 5 [facility] OUTPATIEN INC T EMERGENCY 64837 [facility] ELIZONDO KAYDEN [address] [facility] T VISIT P MODERATE SEVERITY EMERGENCY 22187 [facility] 5 5 [facility] INC T VISIT LOW/MODER SEVERITY OFFICE 07974 [facility] HALL OUTPATIEN 5 5 PHYSICIAN DOMENICO T VISIT S GROUP 15 MINUTES OFFICE 44909 [facility] HALL OUTPATIEN 5 5 PHYSICIAN DOMENICO T VISIT S GROUP 15 MINUTES OFFICE 96554 [facility] HALL OUTPATIEN 5 5 PHYSICIAN DOMENICO T VISIT S GROUP 15 MINUTES OFFICE 54586 [facility] HALL OUTPATIEN 4 4 PHYSICIAN DOMENICO T VISIT S GROUP 15 MINUTES OFFICE 62643 [facility] HALL OUTPATIEN 4 4 PHYSICIAN DOMENICO T VISIT S GROUP 15 MINUTES OFFICE 97691 [facility] 4 4 DOMENICO DOMENICO T VISIT 25 MINUTES OFFICE 77198 ROSAURA CRUZ 4 4 SALUD PADILLA T VISIT 15 MINUTES EMERGENCY 00806 [facility] ELIE 4 4 [facility] EMERGENCY T VISIT PHYS HIGH/URGE NT SEVERITY EMERGENCY [address] [facility] 4 4 KONSTANTIN ELIGIO DEPARTMEN EMERGENCY T VISIT PHYS HIGH/URGE NT SEVERITY OFFICE 13719 ISABEL HULLE OUTPATIEN 4 4 DOMENICO DOMENICO T VISIT 25 MINUTES OFFICE 69691 [facility] 4 4 DOMENICO DOMENICO T VISIT 25 MINUTES EMERGENCY 45825 AMPARO CHRISTENSEN 3 3 III KINSEY III [facility] DEPARTMEN T VISIT MODERATE SEVERITY EMERGENCY 82329 [facility] ELIGIO ELIGIO DEPARTMEN T VISIT HIGH/URGE NT SEVERITY EMERGENCY 47864 AMPARO CHRISTENSEN 3 3 III KINSEY III KINSEY DEPARTMEN T VISIT HIGH/URGE NT SEVERITY OFFICE 28662 [facility] 3 3 DOMENICO DOMENICO T VISIT 25 MINUTES OFFICE 25142 NEUS ISAIAS OUTPATIEN 3 3 T VISIT 25 MINUTES OFFICE 35466 [facility] OUTPATIEN [address] [place] [address] T VISIT HIGH [facility] 10 [facility] MIN[facility]ES OFFICE 30693 NEUS ISAIAS OUTPATIEN 3 3 T NEW 20 MINUTES OFFICE 20596 [facility] OUTPATIEN [address] [place] [address] T VISIT HIGH HIGH 15 [facility] MINUTES OFFICE 86550 [facility] OUTPATIEN [address] [place] [address] T VISIT HIGH [facility]IGH 10 [facility] MINUTES OFFICE 48450 [facility] 3 3 DOMENICO DOMENICO T VISIT 25 MINUTES OFFICE 94328 [facility] OUTPATIEN [address] [place] [address] T VISIT HIGH [facility]IGH 15 [facility] MINUTES OFFICE 26435 [facility]ACK[facility] OUTPATIEN [address] [place] [address] T VISIT HIGH [facility] 10 [facility] MINUTES OFFICE 94354 TREVINLAZAROARYAN ZHONGLAZAROARYAN OUTPATIEN 3 3 EVONNE DOUGLASS T VISIT 15 MINUTES OFFICE 57624 [facility] OUTPATIEN [address] [place] [address] T VISIT HIGH [facility]IGH 15 [facility] MINUTES OFFICE 81802 [facility]ACKEN BRACKEN OUTPATIEN [address] [facility] T VISIT HIGH HIGH 10 [facility] MINUTES OFFICE 56055 [facility]ACK[facility] BRACKEN OUTPATIEN [address] [place] [address] T VISIT HIGH [facility]IGH 10 [facility] MINUTES OFFICE 35070 [facility]ACK[facility] OUTPATIEN [address] [place] [address] T VISIT HIGH [facility]IGH 15 [facility] MINUTES OFFICE 66474 [facility]ACK[facility] OUTPATIEN [address] [place] [address] T VISIT HIGH [facility]IGH 10 [facility] MINUTES OFFICE 11188 [facility] OUTPATIEN [address] [place] [address] T VISIT HIGH HIGH 15 [facility] MINUTES OFFICE 20811 [facility]ACK[facility] BRACKEN OUTPATIEN [address] [place] [address] T VISIT HIGH HIGH 10 [facility] MINUTES OFFICE 50954 [facility]ACK[facility] OUTPATIEN [address] [place] [address] T VISIT HIGH [facility]IGH 10 [facility] MINUTES OFFICE 49415 [facility]ACK[facility] BRACKEN OUTPATIEN [address] [place] [address] T VISIT HIGH [facility]IGH 10 [facility] MINUTES OFFICE 87453 [facility]ACK[facility] BRACKEN OUTPATIEN [address] [place] [address] T VISIT HIGH [facility]IGH 10 [facility] MINUTES OFFICE 99937 PRANEETH PRANEETH OUTPATIEN 2 2 MARINO MARINO T VISIT 15 MINUTES OFFICE 35528 PRANEETH PRANEETH OUTPATIEN 1 1 MARINO MARINO T VISIT 10 MINUTES EMERGENCY 00582 TRICIA ALMEIDA FIDELINA 1 1 EMERGENCY DEPARTMEN SERVICES T VISIT MODERATE SEVERITY EMERGENCY 66052 [facility] 1 1 [facility] DEPARTMEN INC T VISIT LOW/MODER SEVERITY [facility] - 1 1 [facility] OUTPATIEN INC T OFFICE 95718 [facility] LACY OUTPATIEN 1 1 [facility] 10 MINUTES OFFICE 36882 [facility] OUTPATIEN 1 1 [facility] 10 MINUTES OFFICE 93377 [facility] 1 [facility] 15 [place] MINUTES [facility] - 1 1 [facility] INPATIENT INC OFFICE 67785 [facility] 1 [facility] 15 [place] MINUTES OFFICE 19409 [facility] 0 0 [facility] 15 [place] MINUTES OFFICE 85388 [facility] 0 0 [facility] 15 [place] MINUTES OFFICE 80103 [facility] 0 0 [facility] 15 [place] MINUTES OFFICE 28244 CONTE CONTE OUTPATIEN 0 0 DON DON T VISIT 15 MINUTES OFFICE 23817 [facility] 0 [facility] 15 [place] MINUTES [facility] - 0 0 [facility] OUTPATIEN INC T OFFICE 60307 [facility] NAZARIOON OUTPATIEN 0 0 [facility] 15 MINUTES OFFICE 81932 [facility] 0 0 [facility] 15 [place] MINUTES OFFICE 27177 [facility] OUTPATIEN 0 0 HEALTH T VISIT 5 CLINIC OF MINUTES [place] OFFICE 79453 [facility] H[facility] 0 0 [facility] T [facility] 15 [place] MINUTES [facility] - 0 0 [facility] OUTPATI[facility] T [facility]PITAL B[facility] - 0 0 [facility] OUTPATIEN INC T OFFICE 02232 [facility] OUTPATIEN 0 0 [facility] 15 MINUTES OFFICE 93334 INÉS CONTE OUTPATIEN 0 0 DON DON T VISIT 15 MINUTES OFFICE 13236 [facility] LACY OUTPATIEN 0 0 [facility] 15 MINUTES OFFICE 90046 INÉS CONTE OUTPATIEN 0 0 DON DON T VISIT 15 MINUTES HOSPITAL [facility] - 0 0 [facility] OUTPATIEN [facility] T OFFICE 33617 [facility] LACY OUTPATIEN 0 0 [facility]ES OFFICE 39526 [facility] LACY OUTPATIEN 0 0 [facility] 10 MINUTES OFFICE 31969 [facility] LACY OUTPATIEN 0 0 [facility] T NEW 10 [facility] MIN[facility]ES HOSPITAL UNIVERSIT - 9 9 [facility] T HOSPITAL UNIVERSIT - 9 9 [facility] T OFFICE 23767 [facility] 9 9 [facility] T [facility]ISIT 15 MINUTES EMERGENCY 90029 [facility], 9 9 KONSTANTIN Lewis [facility] EMERGENCY T VISIT PHYS INC HIGH/URGE NT SEVERITY EMERGENCY 10217 [facility] 9 9 [facility] T VISIT LOW/MODER SEVERITY HOSPITAL [facility] - 9 9 [facility] T HOSPITAL [facility]ARR - 9 9 [facility] T EMERGENCY 55724 [facility] 9 9 [facility] T VISIT MODERATE SEVERITY EMERGENCY 93098 [facility], 9 9 [place] Lewis [facility] EMERGENCY T VISIT PHYS INC HIGH/URGE NT SEVERITY [facility]OS[facility] 9 [facility] T EMERGENCY 29685 [facility] 9 9 [facility] T VISIT LOW/MODER SEVERITY EMERGENCY 13352 [facility] [place], 9 9 KONSTANTIN Tuttle [facility] EMERGENCY T VISIT PHYS INC MODERATE SEVERITY OFFICE 00645 [facility] OUTPATIEN 9 9 ROSARIO PONCE T VISIT 15 MINUTES OFFICE 11867 [facility] OUTPATIEN 9 9 ROSARIO PONCE T VISIT 15 MINUTES EMERGENCY 45852 [facility], 8 8 [place] Tuttle [facility] EMERGENCY T VISIT PHYS INC HIGH/URGE NT SEVERITY [facility] [place] - 8 8 [facility] T EMERGENCY 42116 BOJENNIFERON 8 8 [facility] T VISIT LOW/MODER SEVERITY OFFICE 80748 [facility] OUTPATIEN 8 8 ROSARIO PONCE T NEW 30 MINUTES EMERGENCY 19463 [facility], 8 8 KONSTANTIN Montague [facility] EMERGENCY T VISIT PHYS INC MODERATE SEVERITY [facility] [place] - 8 8 [facility] T EMERGENCY 49752 BOJENNIFERON 8 8 [facility] T VISIT LIMITED/M INOR PROB PERIODIC 62164 [facility] [place] PREVENTIV [address] [facility] E MED EST CENTRAL PATIENT BANK ACCT [facility] [id number] T OFFICE 73275 [facility] [place] OUTPATIEN 8 8 HEALTH ID HEALTH T NEW 10 CENTRAL MINUTES BANK ACCT [facility] T OFFICE 92453 INÉS CONTE OUTPATIEN 8 8 DON R DON R T VISIT 15 MINUTES
--- OUTSIDE RECORDS SUMMARY | 2017-05-30 07:01 | External Medical Summary Rpt | CCD ---
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 HEMOGLOBI INC INC N URINE 66265 B[facility]BI LACY 6 [facility] TEST INC INC VISUAL COLOR CMPRSN METHS COLLECTIO 18869 BAMBI LACY N VENOUS 6 [facility] BLOOD INC INC VENIPUNCT URE BLOOD 13836 BAMBI LACY COUNT 6 [facility] HEMATOCRI INC INC T BLOOD 96406 BAMBI LACY TYPING 6 [facility] SEROLOGIC INC INC RH (D) GONADOTRO 10571 BAMBI LACY PIN 6 [facility] CHORIONIC INC INC QUANTITAT JULIANNE BLOOD 17644 BAMBIDANNI NAZARIOON TYPING 6 [facility] SEROLOGIC INC INC ABO ANTIBODY 21095 BAMBIDANNI LACY SCREEN 6 [facility] RBC EACH INC INC SERUM TECHNIQUE THERAPEUT 56816 [facility] LACY IC 6 [facility] PROPHYLAC INC INC TIC/DX INJECTION SUBQ/IM URNLS DIP 62424 [facility] LACY 6 [facility] STICK/TAB INC INC LET REAGENT AUTO MICROSCOP Y US PREG 54580 [place] [facility] UTERUS 6 MEDICAL REAL TIME IMAGING W/IMAGE ASS DCMTN TRANSVAG US PREG 33043 ROSAURA BRANNON UTERUS 5 SALUD FUNEZ RANDY REAL TIME W/IMAGE DCMTN TRANSVAG IADNA 90198 BIO BIO GARDNEREL 5 REFERNCE REFERNCE LA LABORATOR LABORATOR VAGINALIS IES IES AMPLIFIED PROBE TQ CULTURE 47017 ROSAURA BRANNON CHLAMYDIA 5 SALUD FUNEZ RANDY ANY SOURCE CYTP C/V 99411 BIO BIO AUTO THIN 5 REFERNCE REFERNCE LYR LABORATOR LABORATOR PREPJ SCR IES IES MNL RESCR PHYS IADNA 43960 BIO BIO NEISSERIA 5 REFERNCE REFERNCE LABORATOR LABORATOR GONORRHOE IES IES AE AMPLIFIED PROBE TQ IADNA NOS 02693 BIO BIO 5 REFERNCE REFERNCE AMPLIFIED LABORATOR LABORATOR PROBE TQ IES IES EACH ORGANISM IADNA 26297 BIO BIO TRICHOMON 5 REFERNCE REFERNCE LABORATOR LABORATOR VAGINALIS IES IES AMPLIFIED PROBE TECH IAADIADOO 76646 ROSAURA KAPLAN R 5 SALUD BRANNON MD TRICHOMON VAGINALIS IADNA 79380 BIO BIO HERPES 5 REFERNCE REFERNCE SOMPLX LABORATOR LABORATOR VIRUS IES IES AMPLIFIED PROBE TQ IADNA 31794 ROSAURA Pepe NEISSERIA 5 SALUD BRANNON MD GONORRHOE AE DIRECT PROBE TQ URINE 10443 ROSAURA BRANNON 5 SALUD FUNEZ RANDY TEST VISUAL COLOR CMPRSN METHS IADNA 37841 BIO BIO CHLAMYDIA 5 REFERNCE REFERNCE LABORATOR LABORATOR TRACHOMAT IES IES IS AMPLIFIED PROBE TQ IADNA 22952 ROSAURA BRANNON HERPES 5 SALUD FUNEZ RANDY SIMPLX VIRUS DIRECT PROBE TQ URINE 18948 [facility] HALL 5 PHYSICIAN DOMENICO TEST S GROUP VISUAL COLOR CMPRSN METHS GONADOTRO 51181 B[facility]BI LACY PIN 5 [facility] CHORIONIC INC INC QUALITATI VE COLLECTIO 66270 BAMBI LACY N VENOUS 5 [facility] BLOOD INC INC VENIPUNCT URE 11458 [facility] DELIVERY 5 MEDICAL PREM ONLY SERV FOUNDATIO N ANESTHESI 60346 [place] FRAGNETO A 5 MEDICAL REG SERV DELIVERY FOUNDATIO ONLY N LOW 741 [facility] CERVICAL 5 Y Y HOSPITAL HOSPITAL SECTION BLD BANK 84635 [facility] SVCS 5 Y OF DIFFC [place] [facility] MATCH&/EV AL REP 41130 [facility] NONSTRESS 5 MEDICAL PREM TEST SERV FOUNDATIO N SBSQ 95144 [place] [address] MEDICAL MEDICAL CARE/DAY SERV SERV 25 FOUNDATIO FOUNDATIO MINUTES N N 36372 [facility] NONSTRESS 5 MEDICAL PREM TEST SERV FOUNDATIO N 58547 [facility] NONSTRESS 5 MEDICAL PREM TEST SERV FOUNDATIO N SBSQ 06132 [facility] 5 MEDICAL PREM CARE/DAY SERV 25 FOUNDATIO MINUTES N SBSQ 56903 [facility] 5 MEDICAL MEDICAL CARE/DAY SERV SERV 25 FOUNDATIO FOUNDATIO MINUTES N N SBSQ 99976 [facility] 5 MEDICAL MEDICAL CARE/DAY SERV SERV 25 FOUNDATIO FOUNDATIO MINUTES N N SBSQ 94504 [facility] 5 MEDICAL MEDICAL CARE/DAY SERV SERV 25 FOUNDATIO FOUNDATIO MINUTES N N SBSQ 58250 [facility] 5 MEDICAL MEDICAL CARE/DAY SERV SERV 25 FOUNDATIO FOUNDATIO MINUTES N N 08356 [facility] NONSTRESS 5 MEDICAL SHAYAN TEST SERV FOUNDATIO N [place] PREG 29015 [facility] 5 MEDICAL DAVID W/DETAIL SERV FOUNDATIO CHARLEE 1ST N GESTATION SBSQ 92509 [facility] 5 MEDICAL MEDICAL CARE/DAY SERV SERV 25 FOUNDATIO FOUNDATIO MINUTES N N AMB A0427 [facility] SERVICE 5 AMBULANCE AMBULANCE ALS SERVICE SERVICE EMERGENCY TRANSPORT LEVEL 1 HOSPITAL G0378 BAMBI LACY OBSERVATI 5 [facility] ON INC INC SERVICE PER HOUR INJECTION J0290 [facility] LACY 5 [facility] AMPICILLI INC INC N SODIUM 500 MG [address] BAMBI LACY BIOPHYSIC 5 [facility] AL INC INC PROFILE W/[place] [address] [place] [facility] 5 MEDICAL MEEK UTERUS IMAGING LIMITED ASS 1/> FETUSES US PREG 64896 BAMBI LACY UTERUS 5 [facility] REAL TIME INC INC F/U TRNSABDL PER FETUS BLD BANK 10178 [facility] 5 Y OF DIFFC [facility] MATCH&/EV AL REP GROUND A0425 [facility] AM[facility]ULANCE PER SERVICE SERVICE STATUTE MILE 60616 [facility] NONSTRESS 5 PHYSICIAN PHYSICIAN TEST S GROUP S GROUP 45521 BAMBI LACY NONSTRESS 5 [facility] TEST INC INC INITIAL 59314 ROSAURA BRANNON OBSERVATI 5 SALUD [place] ON CARE/DAY 50 MINUTES URNLS DIP 41938 [facility] LACY 5 [facility] STICK/TAB INC INC LET REAGENT AUTO MICROSCOP Y SUSCEPTIB 39597 BAMBI LACY LTY STDY 5 [facility] ANTIMICRB INC INC IAL MICRO/AGA R DILUTJ BASIC 54849 BAMBI LACY METABOLIC 5 [facility] PANEL INC INC CALCIUM TOTAL BLOOD 61321 BAMBI LACY COUNT 5 [facility]OS[facility] COMPLETE INC INC AUTO&AUTO DIFRNTL WBC INJECTION J0290 [facility] LACY 5 [facility] AMPICILLI INC INC N SODIUM 500 [facility] G0378 BAMBI LACY OBSERVATI 5 [facility]OS[facility] ON INC INC SERVICE PER HOUR EVAL C/V 21796 BAMBI LACY AMNIOTIC 5 [facility] FLUID INC INC PROTEIN QUAL EA SPECIMEN CUL BACT 13547 B[facility]BI LACY XCPT 5 [facility] URINE INC INC BLOOD/STO OL AEROBIC ISOL CUL BACT 66763 BAMBI LACY AEROBIC 5 [facility] ADDL INC INC METHS DEFINITIV E EA ISOL BLOOD 14585 BAMBI LACY TYPING 5 [facility] SEROLOGIC INC INC RH (D) COLLECTIO 62214 BAMBI LACY N VENOUS 5 [facility] BLOOD INC INC VENIPUNCT URE GLUCOSE 62765 [facility] POST 5 PHYSICIAN PHYSICIAN GLUCOSE S GROUP S GROUP DOSE INJECTION J2790 BAMBI LACY RHO D IG 5 [facility] HOSP HUMAN INC INC FULL DOSE 300 MCG ANTIBODY 22891 BAMBI LACY SCREEN 5 [facility] RBC EACH INC INC SERUM TECHNIQUE BLOOD 27980 BAMBI LACY TYPING 5 [facility] SEROLOGIC INC INC ABO THERAPEUT 19490 BAMBI LACY IC 5 [facility]OSP PROPHYLAC INC INC TIC/DX INJECTION SUBQ/IM 58008 [facility] HALL NONSTRESS 5 PHYSICIAN DOMENICO TEST S GROUP US PREG 44058 [facility] HALL UTERUS 5 PHYSICIAN DOMENICO AFTER 1ST S GROUP TRIMEST GESTATION US PREG 80979 [facility] HALL UTERUS 4 DOMENICO DOMENICO AFTER 1ST TRIMEST GESTATION CUL BACT 42650 COMBINED COMBINED XCPT 4 PHYSICIAN PHYSICIAN URINE S LA S LA BLOOD/STO OL AEROBIC ISOL URINE 96346 HALL HALL 4 DOMENICO DOMENICO TEST VISUAL COLOR CMPRSN METHS ANTIBODY 96410 COMBINED COMBINED CHLAMYDIA 4 [place] [address] ISABEL HALL TRANSVAGI 4 DOMENICO DOMENICO NAL ANTIBODY 85179 COMBINED COMBINED CHLAMYDIA 4 PHYSICIAN PHYSICIAN S LA S LA URINE 01052 ISABEL HALL 4 DOMENICO DOMENICO TEST VISUAL COLOR CMPRSN METHS CUL BACT 86375 COMBINED COMBINED XCPT 4 PHYSICIAN PHYSICIAN URINE S LA S LA BLOOD/[place] [address] ISABEL HALL TRANSVAGI 4 DOMENICO DOMENICO NAL ANTIBODY 29280 COMBINED COMBINED CHLAMYDIA 4 PHYSICIAN PHYSICIAN S LA S LA CUL BACT 69090 COMBINED COMBINED XCPT 4 PHYSICIAN PHYSICIAN URINE S LA S LA BLOOD/STO OL AEROBIC ISOL URINE 65711 ISABEL HALL 4 DOMENICO DOM[facility] [place] [address] FAITH FAITH HEAD/BRAI 3 MEEK MEEK N W/O CONTRAST MATERIAL RADEX 97325 FAITH FAITH SHOULDER 3 MEEK MEEK COMPLE[place] MINIM[address] [place] [address] FAITH FAITH CERVICAL 3 MEEK MEEK SPINE W/O CONTRAST MATERIAL IAADIADOO 32774 NEUS ISAIAS NEUS ISAIAS [place] [address] ISABEL HALL TRANSVAGI 3 DOMENICO DOMENICO NAL ANTIBODY 99030 COMBINED COMBINED CHLAMYDIA 3 PHYSICIAN PHYSICIAN S LA S LA CUL BACT 01159 COMBINED COMBINED XCPT 3 PHYSICIAN PHYSICIAN URINE S LA S LA BLOOD/STO OL AEROBIC ISOL SMR PRIM 96423 ISABEL HALL SRC WET 3 DOMENICO DOMENICO MOUNT NFCT AGT OPHTH 86663 [facility] MAC[facility] MEDICAL 2 XM&EVAL COMPRHNSV ESTAB PT 1/> FRAMES V2020 [facility] RENALD[facility] PURCHASES 2 DETERMINA 94459 [facility] TION 2 REFRACTIV E STATE FITTING 32347 [facility]DEZBRENDAN MACARIO [facility] SPECTACLE 2 S XCPT APHAKIA MONOFOCAL SPHERE V2100 [facility] RENALD[facility] SINGLE 2 VISION PLANO +/- 4.00 PER LENS IADNA 11-17-201 12005 PRANEETH PRANEETH STREPTOCO 1 MRAINO MARINO CCUS GROUP A QUANTIFIC ATION URINE 16739 [facility] LACY 1 [facility] TEST INC INC VISUAL COLOR CMPRSN METHS RADIOLOGI 17987 BAMIB LACY C EXAM 1 [facility] CHEST 2 INC INC VIEWS FRONTAL&L ATERAL SPHERE V2100 [facility] MAC[facility]IO SINGLE 1 VISION VISION PLANO +/- 4.00 PER LENS 1 VISN V2103 [facility] PLANO 1 VISION TO+/-4.00 D SPHER 0.12-2.00 D CYL EA FRAMES V2020 [facility] PURCHASES 1 VISION RPR&REFIT 17393 [facility] G 1 VISION SPECTACLE S EXCEPT APHAKIA OPHTH 85862 CEE SABA MEDICAL 1 VISION ANG XM&EVAL COMPRE NEW PT 1/> VST FRAMES V2020 [facility] PURCHASES 1 VISION ANG 1 VISN V2103 CEE S[facility] PLANO 1 VISION ANG TO+/-4.00 D SPHER 0.12-2.00 D CYL EA SPHERE V2100 [facility] SINGLE 1 VISION ANG VISION PLANO +/- 4.00 PER LENS FITTING 61064 [facility] SPECTACLE 1 VISION ANG S XCPT APHAKIA MONOFOCAL INSERTION 30252 [facility] INE [place] DEVICE IUD URINE 72948 [facility] TEST CLIN[facility] OF VISUAL [place] COLOR CMPRSN METHS [place] J7302 [facility] STREL-RLS 1 [facility] E [facility] INTRAUTER [place] N CNTRACPT 52 MG INJECTION 9911 BAMBI LACY OF RH 1 [facility] IMMUNE INC INC GLOBULIN REPAIR OF 7569 [facility]BI LACY OTHER 1 [facility] CURRENT INC INC OBSTETRIC LACERATIO N VAGINAL 82096 W[facility] DELIVERY 1 [facility] ONLY [facility]IN[facility] OF [place] NEURAXIAL 14069 [facility] 1 ANESTH ANALG/ANE OF THE S PLND BLUE VAGINAL DELIVERY 86174 [facility] BIOPHYSIC 1 [facility] AL [facility]IN[facility] OF PROFILE [place] W/O NON-STRES S TESTING DOPPLER 71680 [facility] VELOCIMET 1 [facility] RY CLINIC OF [place]MBILICAL [place] P[place] 07912 [facility] UTERUS 1 [facility] REAL TIME CLINIC OF F/U [place]HIJEET TRNSABDL PER FETUS CUL BACT 64956 COMBINED COMBINED XCPT 0 PHYSICIAN PHYSICIAN URINE S LA S LA BLOOD/STO OL AEROBIC ISOL FTL 20433 BAMBI LACY FIBRONECT 0 [facility] IN INC INC CERVICOVA G SECRETION S SEMI-MARISABEL URNLS DIP 26622 [facility]BI BAMBI 0 [facility] STICK/TAB INC INC LET REAGENT AUTO MICROSCOP Y 40131 BAMBI NAZARIOON NONSTRESS 0 [facility] TEST INC INC TOBACCO 81152 BAMBI BAMBI USE 0 [facility] CESSATION INC INC INTERMEDI ATE 3-10 MINUTES GLUCOSE 44419 [facility] TOLERANCE 0 [facility] TEST GTT CLINIC OF 3 [place] SPECIMENS GLUCOSE 13450 [facility] POST 0 [facility] GLUCOSE CLINIC OF DOSE [place]HI[place] FTL 04798 BAMBI LACY FIBRONECT 0 [facility] IN INC INC CERVICOVA G SECRETION S SEMI-MARISABEL URNLS DIP 73603 BMABI BAMBI 0 [facility] STICK/TAB INC INC LET REAGENT AUTO MICROSCOP Y TOBACCO 44307 BAMBI BAMBI USE 0 [facility] CESSATION INC INC INTERMEDI ATE 3-10 MINUTES 25076 [facility] H[facility] NONSTRESS 0 [facility] TEST [facility]IN[facility] OF [place] OBSERVATI 49100 [facility] ON/INPATI 0 [facility] CARE 40 MINUTES URNLS DIP 75783 [facility]BI BAMBI 0 [facility] STICK/TAB INC INC LET REAGENT AUTO MICROSCOP Y 04705 BAMBI LACY NONSTRESS 0 [facility] TEST INC INC CULTURE 12927 B[facility] LACY BACTERIAL 0 [facility] INC INC QUANTTATI VE COLONY COUNT URINE IAADIADOO 68991 CONTE CONTE 0 DON DON STREPTOCO CCUS GROUP A [place] PREG 47320 [facility] H[facility] UTERUS 0 [facility] AFTER 1ST CLINIC OF TRIMEST ABHIJEET GESTATION IADNA 89631 PATHOLOGY PATHOLOGY CHLAMYDIA 0 & & CYTOLOGY CYTOLOGY TRACHOMAT LAB LAB IS AMPLIFIED PROBE TQ CYTP C/V 43490 PATHOLOGY PATHOLOGY AUTO THIN 0 & & LYR CYTOLOGY CYTOLOGY PREPJ SCR LAB LAB MNL RESCR PHYS IADNA 66076 PATHOLOGY PATHOLOGY NEISSERIA 0 & & CYTOLOGY CYTOLOGY GONORRHOE LAB LAB AE AMPLIFIED PROBE TQ URNLS DIP 21659 [facility] LACY 0 [facility] STICK/TAB INC INC LET REAGENT AUTO MICROSCOP Y SUSCEPTIB 44557 BAMBI LACY LTY STDY 0 [facility] ANTIMICRB INC INC IAL MICRO/AGA R DILUTJ 57281 [facility] LACY NONSTRESS 0 [facility] TEST INC INC OBSERVATI 05742 [facility] HARPEL ON/INPATI 0 PHYSICIAN [facility] PCC CARE 55 MINUTES CULTURE 98263 BAMBI LACY BACTERIAL 0 [facility] INC INC QUANTTATI VE COLONY COUNT URINE CULTURE 85539 [facility] LACY BCT 0 [facility] ISOL&PRSM INC INC PTV ID ISOLATE EA URINE FTL 63938 BAMBI NAZARIOON FIBRONECT 0 [facility] IN INC INC CERVICOVA G SECRETION S SEMI-MARISABEL URINE 08641 [facility] LACY [facility] CENTER VISUAL COLOR CMPRSN METHS CUL 32070 [facility] PRSMPTV 9 Y Y [facility] HOSPITAL ORGANISM SCRN W/COLONY ESTIMJ CULTURE 81242 [facility] UN[facility]ERSIT CHLAMYDIA 9 Y Y [facility] HOSPITAL SOURCE CULTURE 60430 [facility] UNIVERSIT CHLAMYDIA 9 Y Y ANY HOSPITAL HOSPITAL SOURCE UNLISTED 32898 [facility] EVALUATIO 9 ADVOCACY ADVOCACY N AND [facility]NA[facility] THE THE T SERVICE [facility] SYPHILIS 40014 [facility] TEST 9 Y Y [facility] NEMAL ANTIBODY QUAL SCR G0145 [facility] CYTOPATH 9 Y Y CERV/VAG [facility] SCR AUTO&MNL RSCR PHYS CUL 50575 [facility] PRSMPTV 9 Y Y [facility] ORGANISM SCRN W/COLONY ESTIMJ URINE 25170 [facility] [facility] 9 [facility] VISUAL COLOR CMPRSN METHS URNLS DIP 56884 [facility] 9 [facility] STICKTAB [facility] LET REAGENT AUTO MICROSCOP Y URNLS DIP 67776 [place] 9 [facility] STICKTAB [facility] LET REAGENT AUTO MICROSCOP Y CULTURE 21394 [place] BACTERIAL 9 [facility] AEROBIC W/ID ISOLATES IAADIADOO 67873 [place] [address] [place] [address] HOSPITAL URINE 48374 [facility] 9 [facility] VISUAL COLOR CMPRSN METHS BASIC 76862 [facility] METABOLIC 9 [facility] CALCIUM TOTAL BLOOD 08239 [place] [address] [facility] AUTO&AUTO DIFRNTL WBC CULTURE 43289 [place] BACTERIAL 9 [facility] QUANTTATI VE COLONY COUNT URINE COLLECTIO 89432 [place] N VENOUS 9 [facility] VENIPUNCT URE IAADIADOO 35709 [facility] 9 [facility] CCUS GROUP A HETEROPHI 99369 [place] LE 9 [facility] ANTIBODIE [facility] S SCREEN COLLECTIO 84553 [facility] [place] N VENOUS 9 [facility] BLOOD VENIPUNCT URE COMPREHEN 37256 [place] SIVE 8 [facility] [place] [address] DIDIER VELÁSQUEZ AMYLASE [address] [place] [address] COLLECTIO 89343 DIDIER VELÁSQUEZ N VENOUS 8 [facility] VENIPUNCT URE CULTURE 17494 [facility] BACTERIAL [address] [place] [address] QUANTTATI VE COLONY COUNT URINE BLOOD 97264 DIDIER VELÁSQUEZ COUNT 8 [facility] AUTO&AUTO DIFRNTL WBC URINE 23184 DIDIER VELÁSQUEZ [address] [place] [address] VISUAL COLOR CMPRSN METHS URNLS DIP 02764 DIDIER VELÁSQUEZ [address] [place] [address] [facility] [place] [address] DIDIER VELÁSQUEZ LIPASE [address] [place] [address] OPHTH 90915 JOSÉ MIGUEL VALDEZ, MEDICAL 8 JAMES A JAMES A XM&EVAL COMPRE NEW PT 1/> VST FRAMES V2020 JOSÉ MIGUEL VALDEZ, PURCHASES 8 JAMES A JAMES A FITTING 11588 JOSÉ MIGUEL VALDEZ SPECTACLE 8 JAMES A JAMES A S XCPT APHAKIA MONOFOCAL SPHERE V2100 JOSÉ MIGUEL VALDEZ, SINGLE 8 JAMES A JAMES A VISION PLANO +/- 4.00 PER LENS SCREENING 55649 [facility] TEST 8 [facility] PURE TONE [facility] ONLY BANK ACCT DEPARTMEN T Encounters Encounter Start End Date Code Location Performer Type Date [facility] Cutler 7 7 [facility] T [facility] - 7 7 [facility] T EMERGENCY 11076 [facility] 7 7 [facility] DEPARTMEN INC T VISIT MODERATE SEVERITY EMERGENCY 68306 LUANNE CALDERON DEPT 7 7 PHYSICIAN VISIT S, PLL[facility] HIGH SEVERITY& THREAT [facility] - 7 7 [facility] T OFFICE 28851 [facility] OUTPATIEN 7 7 PHYSICIAN T VISIT S GROUP 15 MINUTES [facility] 7 [facility] T EMERGENCY 44927 LUANNE CRUZ 7 7 PHYSICIAN DEPARTMEN S, [facility] T VISIT HIGH/URGE NT SEVERITY [facility] - [facility] 7 [facility] OUTPATIEN INC T EMERGENCY 32118 [facility] 7 7 [facility] DEPARTMEN INC T VISIT LOW/MODER SEVERITY EMERGENCY 40916 LUANNE CALDERON DEPT 6 6 PHYSICIAN ELIGIO VISIT S, [facility] HIGH SEVERITY& [facility] 74475 [facility] OUTPATIEN 6 6 PHYSICIAN RANDY T VISIT S GROUP 25 MINUTES EMERGENCY 31024 LUANNE CALDERON 6 6 PHYSICIAN ELIGIO DEPARTMEN S, [facility] T VISIT HIGH/URGE NT SEVERITY [facility] - 6 6 [facility] INPATIENT [facility] - 6 6 [facility]PATIEN [facility] - 6 6 [facility] OUTPATIEN [facility] T OFFICE 78673 [facility] OUTPATIEN 6 6 PHYSICIAN RANDY T VISIT S GROUP 15 MINUTES [facility] - 6 6 [facility] OUTPATIEN INC T OFFICE 08280 [facility] OUTPATIEN 6 6 PHYSICIAN RANDY T VISIT S GROUP 15 MINUTES [facility] - 6 6 [facility] OUTPAT[facility]EN [facility] T OFFICE 10328 [facility]ON OUTPATIEN 6 6 SALUD FUNZE RANDY T VISIT 15 MINUTES [facility] - 6 6 [facility] OUTPATIEN INC [facility] - 6 6 [facility] OUT[facility] INC T OFFICE 44460 [facility] PERDOMOPEL OUTPATIEN 6 6 SALUD PADILLA T VISIT 15 MINUTES [facility] - 6 6 [facility] OUTPATIEN INC T OFFICE 53300 [facility] HANL OUTPATIEN 6 6 SALUD PADILLA T VISIT 15 MINUTES OFFICE 12219 [facility] PERDOMOPEL OUTPATIEN 6 6 SALUD PADILLA T VISIT 15 MINUTES [facility] - 6 6 [facility] OUTPATIEN INC T [facility] - 6 6 [facility] OUTPATIEN INC T OFFICE 03958 [facility] PERDOMOPEL OUTPATIEN 6 6 SALUD PADILLA T VISIT 15 MINUTES [facility] - 6 6 [facility] OUTPATIEN INC T OFFICE 20337 [facility] PERDOMOPEL OUTPATIEN 6 6 SALUD FUNEZ RANDY T VISIT 15 MINUTES OFFICE 24458 [facility] HANL OUTPATIEN 6 6 SALUD PADILLA T VISIT 15 MINUTES EMERGENCY 54127 LUANNE ASIF DEPT 6 6 PHYSICIAN U BRITTANIE VISIT S, [facility] HIGH SEVERITY& THREAT [facility] - 6 6 [facility] OUTPATIEN INC T EMERGENCY 08488 [facility] 6 6 [facility] INC T VISIT MODERATE SEVERITY OFFICE 34182 [facility] PERDOMOPEL OUTPATIEN 6 6 SALUD PADILLA T VISIT 15 MINUTES OFFICE 85909 [facility] OUTPATIEN 5 5 SALUD PADILLA T VISIT 15 MINUTES OFFICE 33265 [facility] OUTPATIEN 5 5 PHYSICIAN T VISIT S GROUP 15 MINUTES [facility] - 5 5 [facility]IEN INC T HOSPITAL UNIVERSIT - 5 5 Y INPATIENT [facility] - 5 5 [facility] OUTPATIEN INC T OFFICE 37661 [facility] OUTPATIEN 5 5 PHYSICIAN DOMENICO T VISIT S GROUP 15 MINUTES OFFICE 95685 [facility] HALL OUTPATIEN 5 5 PHYSICIAN DOMEN[facility] T VISIT S GROUP 15 MINUTES OFFICE 42623 [facility] OUTPATIEN 5 5 PHYSICIAN T VISIT 5 S GROUP MINUTES [facility] 5 [facility] T [facility] 5 [facility] T EMERGENCY 93228 [facility] ELIZONDO KAYDEN 5 5 [facility] T VISIT P MODERATE SEVERITY EMERGENCY 8[address]36 [facility] [address] [facility] INC T VISIT LOW/MODER SEVERITY OFFICE 62766 [facility] HALL OUTPATIEN 5 5 PHYSICIAN [facility] T VISIT S GROUP 15 MINUTES OFFICE 51295 [facility] HALL OUTPATIEN 5 5 PHYSICIAN [facility] T VISIT S GROUP 15 MINUTES OFFICE 62448 [facility] HALL OUTPATIEN 5 5 PHYSICIAN [facility] T VISIT S GROUP 15 MINUTES OFFICE 63490 [facility] HALL OUTPATIEN 4 4 PHYSICIAN [facility] T VISIT S GROUP 15 MINUTES OFFICE 80546 [facility] HALL OUTPATIEN 4 4 PHYSICIAN [facility] T VISIT S GROUP 15 MINUTES OFFICE 20353 [facility] 4 4 [facility] T VISIT 25 MINUTES OFFICE 16459 ROSAURA CRUZ 4 4 SALUD PADILLA T VISIT 15 MINUTES EMERGENCY 93280 [facility] ELIE 4 4 [facility] EMERGENCY T VISIT PHYS HIGH/URGE NT SEVERITY EMERGENCY 60823 [facility] 4 4 KONSTANTIN ELIGIO DEPARTMEN EMERGENCY T VISIT PHYS HIGH/URGE NT SEVERITY OFFICE 51693 ISABEL HULLE OUTPATIEN 4 4 [facility]ICO T VISIT 25 MINUTES OFFICE 46685 [facility] 4 4 [facility] T VISIT 25 MINUTES EMERGENCY 25365 AMP[facility]O CHRISTENSEN 3 3 III [facility] III [facility] DEPARTMEN T VISIT MODERATE SEVERITY EMERGENCY 95329 [facility] 3 3 ELIGIO ELIGIO DEPARTMEN T VISIT HIGH/URGE NT SEVERITY EMERGENCY 39214 AMPARO CHRISTENSEN 3 3 III KINSEY III [facility] DEPARTMEN T VISIT HIGH/URGE NT SEVERITY OFFICE 28324 [facility] 3 3 DOM[facility] DOMENICO T VISIT 25 MINUTES OFFICE 30330 NEUS ISAIAS OUTPATIEN 3 3 T VISIT 25 MINUTES OFFICE 71322 [facility] OUTPATIEN [address] [place] [address] T VISIT HIGH [facility] MIN[facility] OFFICE 56705 NEUS ISAIAS OUTPATIEN 3 3 T NEW 20 MINUTES OFFICE 23381 [facility] OUTPATIEN [address] [place] [address] T VISIT HIGH [facility] MIN[facility]ES OFFICE 30911 [facility] OUTPATIEN [address] [place] [address] T VISIT HIGH [facility] MIN[facility]ES OFFICE 08546 [facility] 3 3 DOM[facility] DOMENICO T VISIT 25 MINUTES OFFICE 48632 [facility] OUTPATIEN [address] [place] [address] T VISIT HIGH [facility] 15 [facility] MINUTES OFFICE 81153 [facility]ACK[facility] OUTPATIEN [address] [place] [address] T VISIT HIGH [facility] 10 [facility] MINUTES OFFICE 55756 TREVINLAZAROARYAN ZHONGLAZAROARYAN OUTPATIEN 3 3 EVONNE DOUGLASS T VISIT 15 MINUTES OFFICE 44849 [facility] OUTPATIEN [address] [place] [address] T VISIT HIGH [facility] 15 [facility] MINUTES OFFICE 64016 [facility] BRACKEN OUTPATIEN 3 3 [facility] T VISIT [facility]IGH HIGH 10 [facility] MINUTES OFFICE 62474 [facility]ACK[facility] BRACKEN OUTPATIEN [address] [place] [address] T VISIT HIGH [facility]IGH 10 [facility] MINUTES OFFICE 20926 [facility]ACK[facility] BRACKEN OUTPATIEN [address] [place] [address] T VISIT HIGH [facility]IGH 15 [facility] MINUTES OFFICE 62719 [facility] BRACKEN OUTPATIEN [address] [place] [address] T VISIT HIGH [facility]IGH 10 [facility] MINUTES OFFICE 03447 [facility]ACK[facility] BRACKEN OUTPATIEN [address] [place] [address] T VISIT HIGH [facility]IGH 15 [facility] MINUTES OFFICE 74804 BRACKEN BRACKEN OUTPATIEN [address] [place] [address] T VISIT HIGH [facility]IGH 10 [facility] MINUTES OFFICE 83584 BRACKEN BRACKEN OUTPATIEN [address] [place] [address] T VISIT HIGH [facility]IGH 10 [facility] MINUTES OFFICE 24211 BRACKEN BRACKEN OUTPATIEN [address] [place] [address] T VISIT HIGH [facility]IGH 10 [facility] MINUTES OFFICE 64553 BRACKEN BRACKEN OUTPATIEN [address] [place] [address] T VISIT HIGH [facility]IGH 10 [facility] MINUTES OFFICE 03134 PRANEETH PRANEETH OUTPATIEN 2 2 MARINO MARINO T VISIT 15 MINUTES OFFICE 09387 PRANEETH PRANEETH OUTPATIEN 1 1 MARINO MARINO T VISIT 10 MINUTES EMERGENCY 56976 TRICIA ALMEIDA FIDELINA 1 1 EMERGENCY DEPARTMEN SERVICES T VISIT MODERATE SEVERITY EMERGENCY 56468 [facility] 1 1 [facility] T VISIT LOW/MODER SEVERITY [facility] T OFFICE 42637 [facility] LACY OUTPATIEN 1 1 [facility] 10 MINUTES OFFICE 07310 [facility] OUTPATIEN 1 1 [facility] 10 MINUTES OFFICE 84606 [facility] 15 [place] MINUTES [facility] 1 [facility]IENT [facility] OFFICE 16544 [facility] 15 [place] MINUTES OFFICE 48899 [facility] 0 [facility] 15 [place] MINUTES OFFICE 37660 [facility] H[facility] 0 [facility] 15 [place] MINUTES OFFICE 08256 [facility] 0 [facility] 15 [place] MINUTES OFFICE 60130 CONTE CONTE OUTPATIEN 0 0 DON DON T VISIT 15 MINUTES OFFICE 50351 [facility] 0 [facility] 15 [place] MINUTES [facility] - [facility] 0 [facility] T OFFICE 47536 [facility] NAZARIOON OUTPATIEN 0 0 [facility] 15 MINUTES OFFICE 83401 [facility] 0 [facility] 15 [place] MINUTES OFFICE 96489 [facility] OUTPATIEN 0 0 HEALTH T VISIT 5 CLINIC OF MINUTES [place] OFFICE 86166 [facility] H[facility] 0 0 [facility] 15 [place] MINUTES [facility] - 0 0 [facility] T [facility] - 0 0 [facility] T OFFICE 36192 [facility] OUTPATIEN 0 0 [facility] 15 MINUTES OFFICE 78998 INÉS CONTE OUTPATIEN 0 0 DON DON T VISIT 15 MINUTES OFFICE 36443 [facility] LACY OUTPATIEN 0 0 [facility] 15 MINUTES OFFICE 67286 INÉS CONTE OUTPATIEN 0 0 DON DON T VISIT 15 MINUTES [facility] - 0 0 [facility] T OFFICE 59372 [facility] LACY OUTPATIEN 0 0 [facility] MIN[facility]ES OFFICE 87861 [facility] LACY OUTPATIEN 0 0 [facility] 10 MINUTES OFFICE 20768 [facility] LACY OUTPATIEN 0 0 [facility] UN[facility] - 9 9 [facility] T HOSPITAL UNIVERSIT [facility] 9 9 [facility] T OFFICE 71585 [facility] 9 9 [facility] T VISIT 15 MINUT[facility] EMERGENCY 06489 [facility], 9 9 K[place]STANTIN Lewis [facility] EMERGENCY T VISIT PHYS INC HIGH/URGE NT SEVERITY EMERGENCY 13795 [place] 9 9 [facility] T VISIT LOW/MODER SEVERITY [facility]PITAL [place] - 9 9 [facility] [place] [facility] 9 9 [facility] 80702 [place] 9 9 [facility] T VISIT MODERATE SEVERITY EMERGENCY 82306 [facility], 9 9 [place] Lewis [facility] EMERGENCY T VISIT PHYS INC HIGH/URGE NT SEVERITY [facility] 97112 [place] 9 9 [facility] T VISIT LOW/MODER SEVERITY EMERGENCY 23328 [facility], 9 9 K[place]STANTIN Tuttle [facility] EMERGENCY T VISIT PHYS INC MODERATE SEVERITY OFFICE 88021 [facility] OUTPATIEN 9 9 ROSARIO PONCE T VISIT 15 MINUTES OFFICE 05643 [facility] [place] OUTPATIEN 9 9 ROSARIO PONCE T VISIT 15 MINUTES EMERGENCY 13218 [facility], 8 8 [place] Tuttle [facility] EMERGENCY T VISIT PHYS INC HIGH/URGE NT SEVERITY [facility] [place] - 8 8 [facility] 35311 [facility] 8 8 [facility] T VISIT LOW/MODER SEVERITY OFFICE 18761 [facility] OUT[facility] 8 8 ROSARIO PONCE T NEW 30 MINUTES EMERGENCY 72750 [facility] CI[facility]RA, 8 8 K[place]STANTIN Montague [facility] EMERGENCY T VISIT PHYS INC MODERATE SEVERITY [facility] [place] - 8 8 [facility] 54776 [facility] 8 8 [facility] T VISIT LIMITED/M INOR PROB PERIODIC 70214 [facility] [place] PREVENTIV 8 8 [facility] E MED EST CENTRAL PATIENT BANK ACCT [facility] [phone] T OFFICE 46701 [facility] [place] [facility] 8 8 [facility] NEW 10 CENTRAL MINUTES BANK ACCT [facility] T OFFICE 54652 INÉS CONTE OUTPATIEN 8 8 DON R DON R T VISIT 15 MINUTES
--- OUTSIDE RECORDS SUMMARY | 2017-05-30 07:03 | External Medical Summary Rpt | CCD ---
Author Author , GENE MILLS Address Unknown Phone [email or web address] Immunization Name Date Rout CVX Reac Dose Comm Prov Is Faci e tion ent ider Refu lity Give sed n Tdap 08-0 115 999 Hist H109 No H109 , 4-20 oric Adso 08 al rbed Info rmat ion - Sour ce Unsp ecif ied DTaP 10-1 107 999 Hist H149 No H149 , UF 6-20 oric 00 al Info rmat ion - Sour ce Unsp ecif ied Kana 10-1 10 999 Hist H149 No H149 o-IP 6-20 oric V 00 al Info rmat ion - Sour ce Unsp ecif ied MMR 10-1 3 999 Hist H149 No H149 6-20 oric 00 al Info rmat ion - Sour ce Unsp ecif ied
--- OUTSIDE RECORDS SUMMARY | 2017-05-30 07:03 | External Medical Summary Rpt ---
Author Author GENE Aguirre, GENE Jebbit Organization [employer] Address Unknown Phone Unavailable Results Streptococcus pyogenes Ag [Presence] in Unspecified specimen Observa Value Referen Units Interpr Notes Date tion ce etation Range Strepto NOT NOTDETE No No LOT # Oct 3 coccus DETECTE CTED informa informa N/A EXP 2017 pyogene D tion in tion in DATE 2:50 PM s Ag source source N/A [Presen data data ce] in Unspeci fied specime n Urinalysis dipstick W Reflex Microscopic panel in Urine Observa Value Referen Units Interpr Notes Date tion ce etation Range Appeara CLEAR CLEAR No No No Apr 21 nce of informa informa informa 2017 Urine tion in tion in tion in 10:50 source source source PM data data data Bacteri 1+ O No No No May 09 a informa informa informa 2017 [Presen tion in tion in tion in 10:50 ce] in source source source PM Urine data data data sedimen t by Light microsc opy Bilirub NEGATIV NEG No No BILIRUB May 09 in E informa informa IN 2017 [Presen tion in tion in CONFIRM 10:50 ce] in source source ED WITH PM Urine data data by Test ICTOTES strip T Erythro 3+ NEG No Abnorma No May 09 cytes informa l informa 2016 [Presen tion in tion in 10:50 ce] in source source PM Urine data data Color YELLOW YELLOW No No No May 09 of informa informa informa 2017 Urine tion in tion in tion in 10:50 source source source PM data data data Glucose NEG No No No May 09 [Mass/vol informati informati informati 2017 ume] in on in on in on in 10:50 PM Urine by source source source Test data data data strip Ketones NEGATIV NEG mg/dL No No May 09 E informa informa 2017 [Presen tion in tion in 10:50 ce] in source source PM Urine data data by Automat ed test strip Mucus 2+ NEG No Abnorma No Sep 21 [Presen informa l informa 2016 ce] in tion in tion in 10:50 Urine source source PM sedimen data data t by Light microsc opy Mucus 1+ OCC No No No Sep 21 [Presen informa informa informa 2016 ce] in tion in tion in tion in 10:50 Urine source source source PM sedimen data data data t by Light microsc opy Nitrite NEGATIV NEG No No No Sep 21 E informa informa informa 2017 [Presen tion in tion in tion in 10:50 ce] in source source source PM Urine data data data by Test strip pH of 5.0 - 8.5 No Normal No Sep 21 Urine informati informati 2017 on in on in 10:50 PM source source data data Protein NEG mg/dL High No Sep 21 [Mass/vol informati 2017 ume] in on in 10:50 PM Urine by source Automated data test strip Erythro 5-10 0 rbc/hpf No No Sep 21 cytes informa informa 2017 [Presen tion in tion in 10:50 ce] in source source PM Urine data data sedimen t by Light microsc opy Specific 1.005 - No Normal No Sep 21 gravity 1.030 informati informati 2017 of Urine on in on in 10:50 PM source source data data Urobili 1.0 NEG E.U./dL No No Sep 21 nogen informa informa 2017 [Presen tion in tion in 10:50 ce] in source source PM Urine data data by Test strip Leukocy [10 O wbc/hpf No No Sep 21 ann wbc/hpf informa informa 2017 [#/volu ; 20 tion in tion in 10:50 me] in wbc/hpf source source PM Urine ] data data Urinalysis dipstick W Reflex Microscopic panel in Urine Observa Value Referen Units Interpr Notes Date tion ce etation Range Appeara CLEAR CLEAR No No No Sep 21 nce of informa informa informa 2017 Urine tion in tion in tion in 10:50 source source source PM data data data Bilirub NEGATIV NEG No No BILIRUB Sep 21 in E informa informa IN 2017 [Presen tion in tion in CONFIRM 10:50 ce] in source source ED WITH PM Urine data data by Test ICTOTES strip T Erythro 3+ NEG No Abnorma No Sep 21 cytes informa l informa 2017 [Presen tion in tion in 10:50 ce] in source source PM Urine data data Color YELLOW YELLOW No No No Sep 21 of informa informa informa 2017 Urine tion in tion in tion in 10:50 source source source PM data data data Glucose NEG No No No Sep 21 [Mass/vol informati informati informati 2017 ume] in on in on in on in 10:50 PM Urine by source source source Test data data data strip Ketones NEGATIV NEG mg/dL No No Sep 21 E informa informa 2017 [Presen tion in tion in 10:50 ce] in source source PM Urine data data by Automat ed test strip Mucus 2+ NEG No Abnorma No Sep 21 [Presen informa l informa 2017 ce] in tion in tion in 10:50 Urine source source PM sedimen data data t by Light microsc opy Nitrite NEGATIV NEG No No No Sep 21 E informa informa informa 2016 [Presen tion in tion in tion in 10:50 ce] in source source source PM Urine data data data by Test strip pH of 5.0 - 8.5 No Normal No Sep 21 Urine informati informati 2017 on in on in 10:50 PM source source data data Protein NEG mg/dL High No Sep 21 [Mass/vol informati 2017 ume] in on in 10:50 PM Urine by source Automated data test strip Specific 1.005 - No Normal No Sep 21 gravity 1.030 informati informati 2017 of Urine on in on in 10:50 PM source source data data Urobili 1.0 NEG E.U./dL No No Sep 21 nogen informa informa 2017 [Presen tion in tion in 10:50 ce] in source source PM Urine data data by Test strip Choriogonadotropin.beta subunit [Units] in 24 hour Urine Observa Value Referen Units Interpr Notes Date tion ce etation Range Choriogon NEG No No No Sep 21 adotropin informati informati informati 2017 .beta on in on in on in 10:50 PM subunit source source source [Units] data data data in 24 hour Urine Amylase [Enzymatic activity/volume] in Serum or Plasma Observa Value Referen Units Interpr Notes Date tion ce etation Range Amylase 25 - 115 U/L Low No Sep 21 [Enzymati informati 2017 c on in 10:49 PM activity/ source volume] data in Serum or Plasma Comprehensive metabolic 2000 panel in Serum or Plasma Observa Value Referen Units Interpr Notes Date tion ce etation Range Albumin/G 1.1 - 1.8 No Low No Sep 21 lobulin informati informati 2017 [Mass on in on in 10:49 PM ratio] in source source Serum or data data Plasma Albumin 3.4 - 5.0 gm/dL Low No Sep 21 [Mass/vol informati 2017 ume] in on in 10:49 PM Serum or source Plasma data Alkaline 46 - 116 U/L Normal No Sep 21 phosphata informati 2017 se on in 10:49 PM [Enzymati source c data activity/ volume] in Serum or Plasma Bilirubin 0.2 - 1.0 mg/dL Normal No Sep 21 .total informati 2017 [Mass/vol on in 10:49 PM ume] in source Serum or data Plasma Urea 7 - 18 mg/dL Normal No Sep 21 nitrogen informati 2017 [Mass/vol on in 10:49 PM ume] in source Serum or data Plasma Calcium 8.5 - mg/dL Low No Sep 21 [Mass/vol 10.1 informati 2017 ume] in on in 10:49 PM Serum or source Plasma data Chloride 98 - 107 mmoL/L Normal No Sep 21 [Moles/vo informati 2017 lume] in on in 10:49 PM Serum or source Plasma data Carbon 21.0 - mmoL/L Low No Sep 21 dioxide, 32.0 informati 2017 total on in 10:49 PM [Moles/vo source lume] in data Serum or Plasma Creatinin 0.55 - mg/dL Normal No Sep 21 e 1.02 informati 2017 [Mass/vol on in 10:49 PM ume] in source Serum or data Plasma Creatinin 50 - 200 ML/MIN Normal No Sep 21 e renal informati 2017 clearance on in 10:49 PM source predicted data by Cockcroft -Gault formula Estimated 59- ML/MIN No REFERENCE Sep 21 informati RANGE: 2017 glomerula on in >60 10:49 PM r source ML/MIN/1. filtratio data 73 SQUARE n rate METERSIf (GF this patient is -A merican, then multiply theresult by 1.210. Globulin 1.3 - 3.2 gm/dL High No Sep 21 [Mass/vol informati 2017 ume] in on in 10:49 PM Serum source data Glucose 74 - 106 mg/dL Normal No Sep 21 [Mass/vol informati 2017 ume] in on in 10:49 PM Serum or source Plasma data Potassium 3.5 - 5.1 mmoL/L Low Sep 21 2017 [Moles/vo CRITICAL 10:49 PM lume] in RESULTS Serum or Plasma RESU LTS CALLED TO: MLEQUIADES Davis 05/09/17 2334 Elena Silva ictninfa Sodium 136 - 145 mmoL/L Normal No Apr 21 [Moles/vo informati 2017 lume] in on in 10:49 PM Serum or source Plasma data Aspartate 15 - 37 U/L Low No Sep inform 2017 aminotran on in 10:49 PM sferase source [Enzymati data c activity/ volume] in Serum or Plasma Alanine 12 - 78 U/L Normal No Sep 21 aminotran informati 2017 sferase on in 10:49 PM [Enzymati source c data activity/ volume] in Serum or Plasma Protein 6.4 - 8.2 gm/dL Normal No Sep 21 [Mass/vol informati 2017 ume] in on in 10:49 PM Serum or source Plasma data Lipase [Enzymatic activity/volume] in Serum or Plasma Observa Value Referen Units Interpr Notes Date tion ce etation Range Lipase 73 - 393 U/L Low No Sep 21 [Enzymati informati 2017 c on in 10:49 PM activity/ source volume] data in Serum or Plasma CBC W Auto Differential panel in Blood Observa Value Referen Units Interpr Notes Date tion ce etation Range Basophils 0 - 0.2 K/MM3 Normal No Sep 21 inform 2017 [#/volume on in 10:49 PM ] in source Blood by data Automated count Basophils 0.1 - 2.0 % Normal No Sep 21 /100 informati 2017 leukocyte on in 10:49 PM s in source Blood by data Automated count Eosinophi 0.0 - 0.4 K/mm3 Normal No Sep 21 ls informati 2017 [#/volume on in 10:49 PM ] in source Blood by data Automated count Eosinophi 0.1 - % Normal No Sep 21 ls/100 12.0 inform2016 leukocyte on in 10:49 PM s in source Blood by data Automated count Granulocy 1.8 - 7.8 K/mm3 High No Sep 21 ann inform 2017 [#/volume on in 10:49 PM ] in source Blood by data Automated count Granulocy 37.0 - % Normal No Sep 21 ann/100 80.0 inform2016 leukocyte on in 10:49 PM s in source Blood by data Automated count Hematocri 37.0 - % Normal No Sep 21 t [Volume 47.0 informati 2016 on in 10:49 PM Fraction] source of Blood data Hemoglobi 12.2 - g/dL Low No Sep 21 n 16.2 inform2016 [Mass/vol on in 10:49 PM ume] in source Blood data Lymphocyt 0.7 - 4.5 K/mm3 Normal No Sep 21 es inform 2017 [#/volume on in 10:49 PM ] in source Unspecifi data ed specimen by Automated count Lymphocyt 10 - 50.0 % Normal No Sep 21 es inform 2017 [#/volume on in 10:49 PM ] in source Unspecifi data ed specimen by Automated count Erythrocy 27 - 31.2 pg Low No Sep 21 te mean inform 2017 corpuscul on in 10:49 PM ar source hemoglobi data n [Entitic mass] Erythrocy 31.8 - g/dl Low No Sep 21 te mean 35.4 inform2016 corpuscul on in 10:49 PM ar source hemoglobi data n concentra tion [Mass/vol ume] by Automated count Erythrocy 82.2 - fl Low No Sep 21 te mean 97.8 inform 2017 corpuscul on in 10:49 PM ar volume source [Entitic data volume] by Automated count Monocytes 0.1 - 1.0 K/mm3 Normal No Sep 21 2017 [#/volume on in 10:49 PM ] in source Blood by data Automated count Monocytes 1.7 - 9.3 % Normal No Sep 21 /100 inform 2017 leukocyte on in 10:49 PM s in source Blood by data Automated count Platelet 7.4 - fl High No Sep 21 mean 10.4 informati 2017 volume on in 10:49 PM [Entitic source volume] data in Blood by Automated count Platelets 142 - 424 K/mm3 Low No Sep 21 inform2016 [#/volume on in 10:49 PM ] in source Blood data Erythrocy 4.2 - 5.4 M/mm3 Normal No Sep 21 ann inform2016 [#/volume on in 10:49 PM ] in source Amniotic data fluid Erythrocy 11.5 - % Normal No Apr 21 te 17.5 2016 distribut on in 10:49 PM ion width source [Entitic data volume] by Automated count Leukocyte 4.5 - K/MM3 Normal No May 09 s 13.0 inform2016 [#/volume on in 10:49 PM ] in source Blood data Drugs identified in Urine by Screen method Observa Value Referen Units Interpr Notes Date tion ce etation Range Positive urine drug screen samples are stored for 7 days. Contact the Lab if confirmation of positives is needed. Ampheta NEGATIV <1000 ng/mL No No Apr 01 mine E informa informa 2016 [Presen tion in tion in 2:10 PM ce] in source source Urine data data by Screen method Barbitura <200 ng/mL No No Apr 01 ann informati informati 2017 2:10 [Mass/vol on in on in PM ume] in source source Urine by data data Screen method Benzodiaz 200 ng/mL ng/mL High This is Apr 01 epines an 2017 2:10 [Mass/vol UNCONFIRM PM ume] in ED Serum or result. Plasma by This Screen result is method for medicalpu rposes and/or treatment only. Cocaine <300 ng/g No No Apr 01 [Mass/vol informati informati 2017 2:10 ume] in on in on in PM Unspecifi source source ed data data specimen Methadone <300 ng/mL No No Apr 01 informati informati 2017 2:10 [Mass/vol on in on in PM ume] in source source Unspecifi data data ed specimen Opiates <300 ng/mL No No Apr 01 [Mass/vol informati informati 2017 2:10 ume] in on in on in PM Unspecifi source source ed data data specimen Phencycli <25 ng/mL No No Apr 01 dine informati informati 2017 2:10 [Mass/vol on in on in PM ume] in source source Unspecifi data data ed specimen 11-Hydr NEGATIV <50 ng/mL No No Apr 01 oxy E informa informa 2017 delta-9 tion in tion in 2:10 PM source source tetrahy data data drocann abinol [Presen ce] in Unspeci fied specime n Cardiac enzymes Observa Value Referen Units Interpr Notes Date tion ce etation Range Creatine 0 - 4.0 U/L Normal No January 09 kinase.MB informati 2016 1:15 /Creatine on in AM source kinase.to data shahana [Ratio] in Serum or Plasma Creatine 0.0 - 3.6 ng/mL Normal No January 09 kinase.MB informati 2016 1:15 on in AM [Mass/vol source ume] in data Serum or Plasma Creatine 26 - 192 U/L Normal No January 09 kinase informati 2016 1:15 [Enzymati on in AM c source activity/ data volume] in Serum or Plasma Troponin 0.00 - ng/mL High 0.04 - January 09 I.cardiac 0.06 0.49 IS 2017 1:15 AN AM [Mass/vol INDETERMI ume] in NANT Serum or ZONEAnd Plasma can be consisten t with the following diseases: Trauma Criticall y ill patients Soler >30% TBSACHF Hypothyro idism Amyloidos isHyperte nsion Myocardit is SepsisHyp otension Rhabdomyo lysis Vital exhaust.P ostop surgery Pulmonary embolism CVARenal failure Acute neurologi richard disease Atrial fib. Comprehensive metabolic 2000 panel in Serum or Plasma Observa Value Referen Units Interpr Notes Date ti ce etation Range Albumin/G 1.1 - 1.8 No Normal No January 09 lobulin informati informati 2016 1:15 [Mass on in on in AM ratio] in source source Serum or data data Plasma Albumin 3.4 - 5.0 gm/dL Normal No January 09 [Mass/vol informati 2016 1:15 ume] in on in AM Serum or source Plasma data Alkaline 46 - 116 U/L Normal No January 09 phosphata informati 2016 1:15 se on in AM [Enzymati source c data activity/ volume] in Serum or Plasma Bilirubin 0.2 - 1.0 mg/dL Normal No January 09 .total informati 2016 1:15 [Mass/vol on in AM ume] in source Serum or data Plasma Urea 7 - 18 mg/dL Normal No January 09 nitrogen informati 2016 1:15 [Mass/vol on in AM ume] in source Serum or data Plasma Calcium 8.5 - mg/dL Normal No January 09 [Mass/vol 10.1 inform2016 1:15 ume] in on in AM Serum or source Plasma data Chloride 98 - 107 mmoL/L Normal No January 09 [Moles/vo informati 2016 1:15 lume] in on in AM Serum or source Plasma data Carbon 21.0 - mmoL/L Normal No January 09 dioxide, 32.0 informati 2016 1:15 total on in AM [Moles/vo source lume] in data Serum or Plasma Creatinin 0.55 - mg/dL Normal No January 09 e 1.02 informati 2016 1:15 [Mass/vol on in AM ume] in source Serum or data Plasma Creatinin 50 - 200 ML/MIN Normal No January 09 e renal informati 2016 1:15 clearance on in AM source predicted data by Cockcroft -Gault formula Estimated 59- ML/MIN No REFERENCE January 09 informati RANGE: 2017 1:15 glomerula on in >60 AM r source ML/MIN/1. filtratio data 73 SQUARE n rate METERSIf (GF this patient is -A merican, then multiply theresult by 1.210. Globulin 1.3 - 3.2 gm/dL High No January 09 [Mass/vol informati 2016 1:15 ume] in on in AM Serum source data Glucose 74 - 106 mg/dL Normal No January 09 [Mass/vol informati 2016 1:15 ume] in on in AM Serum or source Plasma data Potassium 3.5 - 5.1 mmoL/L Normal No January 09 informati 2016 1:15 [Moles/vo on in AM lume] in source Serum or data Plasma Sodium 136 - 145 mmoL/L Normal No January 09 [Moles/vo informati 2016 1:15 lume] in on in AM Serum or source Plasma data Aspartate 15 - 37 U/L Low No January 09 informati 2016 1:15 aminotran on in AM sferase source [Enzymati data c activity/ volume] in Serum or Plasma Alanine 12 - 78 U/L Normal No January 09 aminotran informati 2016 1:15 sferase on in AM [Enzymati source c data activity/ volume] in Serum or Plasma Protein 6.4 - 8.2 gm/dL Normal No January 09 [Mass/vol informati 2016 1:15 ume] in on in AM Serum or source Plasma data Urinalysis dipstick W Reflex Microscopic panel in Urine Observa Value Referen Units Interpr Notes Date tion ce etation Range Appeara CLEAR CLEAR No No No January 09 nce of informa informa informa 2016 Urine tion in tion in tion in 1:15 AM source source source data data data Bacteri 1+ O No No No January 09 a informa informa informa 2016 [Presen tion in tion in tion in 1:15 AM ce] in source source source Urine data data data sedimen t by Light microsc opy Bilirub NEGATIV NEG No No No January 09 in E informa informa informa 2016 [Presen tion in tion in tion in 1:15 AM ce] in source source source Urine data data data by Test strip Erythro TRACE-I NEG No No No January 09 cytes NTACT informa informa informa 2016 [Presen tion in tion in tion in 1:15 AM ce] in source source source Urine data data data Color YELLOW YELLOW No No No January 09 of informa informa informa 2016 Urine tion in tion in tion in 1:15 AM source source source data data data Glucose NEG No No No January 09 [Mass/vol informati informati informati 2016 1:15 ume] in on in on in on in AM Urine by source source source Test data data data strip Ketones NEGATIV NEG mg/dL No No January 09 E informa informa 2016 [Presen tion in tion in 1:15 AM ce] in source source Urine data data by Automat ed test strip Mucus 1+ NEG No Abnorma No January 09 [Presen informa l informa 2016 ce] in tion in tion in 1:15 AM Urine source source sedimen data data t by Light microsc opy Nitrite NEGATIV NEG No No No January 09 E informa informa informa 2016 [Presen tion in tion in tion in 1:15 AM ce] in source source source Urine data data data by Test strip pH of 5.0 - 8.5 No Normal No January 09 Urine informati informati 2016 1:15 on in on in AM source source data data Protein NEG mg/dL No No January 09 [Mass/vol informati informati 2016 1:15 ume] in on in on in AM Urine by source source Automated data data test strip Erythro 3-5 0 rbc/hpf No No January 09 cytes informa informa 2016 [Presen tion in tion in 1:15 AM ce] in source source Urine data data sedimen t by Light microsc opy Specific 1.005 - No Normal No January 09 gravity 1.030 informati informati 2017 1:15 of Urine on in on in AM source source data data Epithel 3-5 0 - 5 #/hpf No No January 09 ial informa informa 2017 cells.s tion in tion in 1:15 AM quamous source source data data [Presen ce] in Urine sedimen t by Microsc opy high power field Urobili 1.0 NEG E.U./dL No No January 09 nogen informa informa 2016 [Presen tion in tion in 1:15 AM ce] in source source Urine data data by Test strip Leukocy [3 O wbc/hpf No No January 09 ann wbc/hpf informa informa 2016 [#/volu ; 5 tion in tion in 1:15 AM me] in wbc/hpf source source Urine ] data data Urinalysis dipstick W Reflex Microscopic panel in Urine Observa Value Referen Units Interpr Notes Date tion ce etation Range Appeara CLEAR CLEAR No No No January 09 nce of informa informa informa 2017 Urine tion in tion in tion in 1:15 AM source source source data data data Bilirub NEGATIV NEG No No No January 09 in E informa informa informa 2016 [Presen tion in tion in tion in 1:15 AM ce] in source source source Urine data data data by Test strip Erythro TRACE-I NEG No No No January 09 cytes NTACT informa informa informa 2016 [Presen tion in tion in tion in 1:15 AM ce] in source source source Urine data data data Color YELLOW YELLOW No No No January 09 of informa informa informa 2017 Urine tion in tion in tion in 1:15 AM source source source data data data Glucose NEG No No No January 09 [Mass/vol informati informati informati 2016 1:15 ume] in on in on in on in AM Urine by source source source Test data data data strip Ketones NEGATIV NEG mg/dL No No January 09 E informa informa 2016 [Presen tion in tion in 1:15 AM ce] in source source Urine data data by Automat ed test strip Mucus 1+ NEG No Abnorma No January 09 [Presen informa l 2016 ce] in tion in tion in 1:15 AM Urine source source sedimen data data t by Light microsc opy Nitrite NEGATIV NEG No No No January 09 E informa informa informa 2016 [Presen tion in tion in tion in 1:15 AM ce] in source source source Urine data data data by Test strip pH of 5.0 - 8.5 No Normal No January 09 Urine informati informati 2016 1:15 on in on in AM source source data data Protein NEG mg/dL No No January 09 [Mass/vol informati informati 2016 1:15 ume] in on in on in AM Urine by source source Automated data data test strip Specific 1.005 - No Normal No January 09 gravity 1.030 informati informati 2016 1:15 of Urine on in on in AM source source data data Urobili 1.0 NEG E.U./dL No No January 09 nogen informa informa 2016 [Presen tion in tion in 1:15 AM ce] in source source Urine data data by Test strip CBC W Auto Differential panel in Blood Observa Value Referen Units Interpr Notes Date tion ce etation Range Basophils 0 - 0.2 K/MM3 Normal No January 09 inform2016 1:15 [#/volume on in AM ] in source Blood by data Automated count Basophils 0.1 - 2.0 % Normal No January 09 /100 informati 2016 1:15 leukocyte on in AM s in source Blood by data Automated count Eosinophi 0.0 - 0.4 K/mm3 Normal No January 09 ls informati 2016 1:15 [#/volume on in AM ] in source Blood by data Automated count Eosinophi 0.1 - % Normal No January 09 ls/100 12.0 informati 2016 1:15 leukocyte on in AM s in source Blood by data Automated count Granulocy 1.8 - 7.8 K/mm3 Normal No January 09 ann informati 2016 1:15 [#/volume on in AM ] in source Blood by data Automated count Granulocy 37.0 - % Normal No January 09 ann/100 80.0 informati 2016 1:15 leukocyte on in AM s in source Blood by data Automated count Hematocri 37.0 - % Normal No January 09 t [Volume 47.0 informati 2016 1:15 on in AM Fraction] source of Blood data Hemoglobi 12.2 - g/dL No January 09 n 16.2 informati informati 2016 1:15 [Mass/vol on in on in AM ume] in source source Blood data data Lymphocyt 0.7 - 4.5 K/mm3 Normal No January 09 es informati 2016 1:15 [#/volume on in AM ] in source Unspecifi data ed specimen by Automated count Lymphocyt 10 - 50.0 % Normal No January 09 es inform2016 1:15 [#/volume on in AM ] in source Unspecifi data ed specimen by Automated count Erythrocy 27 - 31.2 pg Low No January 09 te mean informati 2016 1:15 corpuscul on in AM ar source hemoglobi data n [Entitic mass] Erythrocy 31.8 - g/dl Low No January 09 te mean 35.4 informati 2016 1:15 corpuscul on in AM ar source hemoglobi data n concentra tion [Mass/vol ume] by Automated count Erythrocy 82.2 - fl Low No January 09 te mean 97.8 informati 2016 1:15 corpuscul on in AM ar volume source [Entitic data volume] by Automated count Monocytes 0.1 - 1.0 K/mm3 Normal No January 09 informati 2016 1:15 [#/volume on in AM ] in source Blood by data Automated count Monocytes 1.7 - 9.3 % Normal No January 09 /100 informati 2016 1:15 leukocyte on in AM s in source Blood by data Automated count Platelet 7.4 - fl Normal No January 09 mean 10.4 informati 2016 1:15 volume on in AM [Entitic source volume] data in Blood by Automated count Platelets 142 - 424 K/mm3 Normal No January 09 informati 2016 1:15 [#/volume on in AM ] in source Blood data Erythrocy 4.2 - 5.4 M/mm3 Normal No January 09 ann informati 2016 1:15 [#/volume on in AM ] in source Amniotic data fluid Erythrocy 11.5 - % Normal No January 09 te 17.5 informati 2016 1:15 distribut on in AM ion width source [Entitic data volume] by Automated count Leukocyte 4.5 - K/MM3 Normal No January 09 s 13.0 informati 2016 1:15 [#/volume on in AM ] in source Blood data Choriogonadotropin.beta subunit [Units] in 24 hour Urine Observa Value Referen Units Interpr Notes Date tion ce etation Range Choriogon NEG No No No January 09 adotropin informati informati informati 2016 1:15 .beta on in on in on in AM subunit source source source [Units] data data data in 24 hour Urine Drugs identified in Urine by Screen method Observa Value Referen Units Interpr Notes Date tion ce etation Range Positive urine drug screen samples are stored for 7 days. Contact the Lab if confirmation of positives is needed. Ampheta NEGATIV <1000 ng/mL No No January 02 mine E informa informa 2016 [Presen tion in tion in 1:50 PM ce] in source source Urine data data by Screen method Barbitura <200 ng/mL No No January 02 ann informati informati 2016 1:50 [Mass/vol on in on in PM ume] in source source Urine by data data Screen method Benzodiaz 200 ng/mL ng/mL No No January 02 epines informati informati 2016 1:50 [Mass/vol on in on in PM ume] in source source Serum or data data Plasma by Screen method Cocaine <300 ng/g No No January 02 [Mass/vol informati informati 2016 1:50 ume] in on in on in PM Unspecifi source source ed data data specimen Methadone <300 ng/mL No No January 02 informati informati 2016 1:50 [Mass/vol on in on in PM ume] in source source Unspecifi data data ed specimen Opiates <300 ng/mL No No January 02 [Mass/vol informati informati 2016 1:50 ume] in on in on in PM Unspecifi source source ed data data specimen Phencycli <25 ng/mL No No January 02 dine informati informati 2016 1:50 [Mass/vol on in on in PM ume] in source source Unspecifi data data ed specimen 11-Hydr POSITIV <50 ng/mL Abnorma This is January 02 oxy E l an 2017 delta-9 UNCONFI 1:50 PM RMED tetrahy result. drocann This abinol result [Presen is for ce] in medical Unspeci purpose fied s specime and/or n treatme nt only.
--- OUTSIDE RECORDS SUMMARY | 2017-05-30 07:03 | External Medical Summary Rpt ---
Author Author GENE Aguirre, GENE Domino Organization [employer] Address Unknown Phone Unavailable Results Streptococcus [...] Serum or Plasma RESU LTS CALLED TO: MELQUIADES Davis 05/09/17 [id number] Elena Silva ictninfa Sodium [...]
--- OUTSIDE RECORDS SUMMARY | 2017-05-30 07:03 | External Medical Summary Rpt | CCD ---
Author Author , GENE MILLS Address Unknown Phone [email or web address] Immunization Name Date Rout CVX Reac Dose [...]
== END 2017-05-21 16:23 | disposition home or self-care (01) ==
LOC: UTC 14:22
DX: J03.90 Acute tonsillitis, unspecified (principal); F17.210 Nicotine dependence, cigarettes, uncomplicated

== ENCOUNTER → 2017-06-28 | Outpatient (CLI) | payer MEDICAID ==
[~2017-06-28] MED LIST changes: +AMOXICILLIN875 MG PO
[2017-06-28 16:34] LABS: AMPHETAMINES/METAMPHETAMINES NEGATIVE ng/mL (<1000)
== END ==
LOC: LAB 15:45
PROVIDERS: Emergency Medicine
DX: Z79.899 Other long term (current) drug therapy (principal)

== ENCOUNTER 2017-07-09 16:23 | Emergency (ER) | payer MEDICAID ==
[~2017-07-09] VITALS: Ht 175.3 cm; Wt 89.4 kg
--- OUTSIDE RECORDS SUMMARY | 2017-07-09 16:38 | External Medical Summary Rpt | CCD ---
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 ed measure 14:40 E ng/mL ment (mass/v olume) Opiates = <300 complet 017 NEGATIV ed measure 14:40 E ng/mL ment (mass/v olume) Methado = <300 complet ne 017 NEGATIV ed measure 14:40 E ng/mL ment (mass/v olume) Cocaine = <300 complet 017 NEGATIV ed measure 14:40 E ng/g ment (mass/v olume) Serum = 200 complet or 017 POSITIV ng/mL ed plasma 14:40 E ng/mL benzodi azepine s measure m Comment: This is an UNCONFIRMED result. This result is for medical Comment: purposes and/or treatment only. Urine = <200 complet barbitu 017 NEGATIV ed rates 14:40 E ng/mL measure ment by screen Urine NEGATIV <1000 complet ampheta 017 E ed mine 14:40 NEGATIV screeni E L ng test ng/mL Drugs identified in Urine by Screen method (06-28-2017 14:40) Ampheta NEGATIV <1000 complet mine 017 E ed [Presen 14:40 ce] in Urine by Screen method POSITIV <50 Abnorma complet oxy 017 E l ed delta-9 14:40 tetrahy drocann abinol [Presen ce] in Unspeci fied specime n Streptococcus pyogenes Ag [Presence] in Unspecified specimen [...] Microscopic panel in Urine (01-09-2017 01:15) Bacteri 2 1+ O complet a 017 ed [Presen 01:15 ce] in Urine sedimen t by Light microsc opy Erythro 01-09-2 3-5 0 complet cytes 017 ed [Presen 01:15 ce] in Urine sedimen t by Light microsc opy Epithel 01-09-2 3-5 0#/hp complet ial 017 f - ed cells.s 01:15 5#/hp quamous f [Presen ce] in Urine sedimen t by Microsc opy high power field Leukocy 01-09-2 3-5 O complet ann 017 wbc/hpf ed [...] ed [Presen 01:15 ce] in Urine Color YELLOW YELLOW complet of 017 ed Urine 01:15 Ketones 2 NEGATIV NEG complet 017 E ed [Presen 01:15 ce] in Urine by Automat ed test strip Mucus 1+ NEG Abnorma complet [Presen 017 l ed ce] in 01:15 Urine sedimen t by Light microsc opy Nitrite 01-09-2 NEGATIV NEG complet 017 E ed [Presen 01:15 ce] in Urine by Test strip Urobili 01-09-2 1.0 NEG complet nogen 017 ed [Presen 01:15 ce] in Urine by Test strip Drugs identified in Urine by Screen method (01-02-2017 13:50) Ampheta NEGATIV <1000 complet mine 017 E ed [Presen 13:50 ce] in Urine by Screen method 11-Hydr POSITIV <50 Abnorma complet oxy 017 E l ed delta-9 13:50 tetrahy drocann abinol [Presen ce] in Unspeci fied specime n B-HCG Ur Ql (07-14-2013 14:00) B-HCG 07-14-2 NEGATIV NEG complet Ur Ql 013 E ed 14:00 URINALYSIS/COMPLETE (07-14-2013 14:00) URINE 07-14-2 YELLOW YELLOW complet COLOR 013 ed 14:00 URINE 07-14-2 Sl CLEAR complet APPEARA 013 Cloudy ed NCE 14:00 URINE 07-14-2 NEGATIV NEG complet GLUCOSE 013 E ed - 14:00 DIPSTIC K URINE 07-14-2 NEGATIV NEG complet BILIRUB 013 E ed IN - 14:00 DIPSTIC K URINE 07-14-2 NEGATIV NEG complet KETONE 013 E mg/dL ed 14:00 URINE 07-14-2 1.025 1.005-1 complet SPECIFI 013 UNK .030 ed C 14:00 GRAVITY URINE 07-14-2 NEGATIV NEG complet BLOOD 013 E ed 14:00 URINE 07-14-2 6.0 UNK 5.0-8.5 complet PH 013 ed 14:00 URINE 07-14-2 NEGATIV NEG complet PROTEIN 013 E mg/dL ed - 14:00 DIPSTIC K URINE 07-14-2 1.0 NEG complet UROBILI 013 E.U./dL ed NOGEN - 14:00 DIPSTIC K URINE 07-14-2 NEGATIV NEG complet NITRATE 013 E ed - 14:00 DIPSTIC K URINE 07-14-2 NEGATIV NEG complet LEUK 013 E ed ESTERAS 14:00 E URINE 3-5 0 complet RBC 013 rbc/hpf ed 14:00 URINE 5-10 O complet WBC 013 wbc/hpf ed 14:00 URINE 5-10 0-5 complet SQUAMOU 013 #/hpf ed S CELLS 14:00 URINE 2+ O complet BACTERI 013 ed A 14:00 B-HCG Ur Ql (05-27-2013 23:30) B-HCG NEGATIV NEG complet Ur Ql 013 E ed 23:30 URINALYSIS/COMPLETE (05-27-2013 23:00) URINE YELLOW YELLOW complet COLOR 013 ed 23:00 URINE CLEAR CLEAR complet APPEARA 013 ed NCE 23:00 URINE NEGATIV NEG complet GLUCOSE 013 E ed [...] 23:00 STREP SCREEN (RAPID) (03-13-2013 14:55) STREP 07-26-2 NEGATIV complet SCREEN 013 E ed (RAPID) 14:55 Procedures Procedure DOS Code Location Performer Comment LOW 741 [facility] 5 Y Y [facility] SECTION INJECTION 9911 [facility] IMMUNE INC INC [place]LOBULIN [place]PAIR OF 7569 [facility] OTHER 1 [facility] CURRENT INC INC OBSTETRIC LACERATIO N Encounters Encounter Start End Date Code Location Performer Type Date [facility] - 7 7 [facility] - 7 7 [facility] 7 7 [facility] - 7 7 [facility] - 7 7 [facility] - 7 7 [facility] - [address] [facility] - 6 6 [facility] - 6 6 [facility] - 6 6 [facility] - 6 6 [facility] - 6 6 [facility] - 6 6 [facility] - 6 6 [facility] - 6 6 [facility] - 6 6 [facility] - 6 6 [facility] - 6 6 [facility] - 5 5 [facility] - 5 5 Y INPATIENT [facility] - 5 5 [facility] - 5 5 [facility] - 5 5 [facility] Emergency SHIVA Zapata (ER) 3 14:27 3 14:48 [facility] Emergency SHIVA Arguello MD (ER) 3 00:37 3 00:47 [facility] Emergency SHIVA Zapata (ER) 3 15:29 3 15:51 [facility] - 1 1 [facility] - [address] [facility] - 0 0 [facility] - 0 0 [facility] - 0 0 [facility] 0 0 [facility] - 9 9 [facility] - 9 9 [facility] - 9 9 [facility] [place] - 9 9 [facility] [place] - [address] [place] [address] [place] [address] [place] [address]
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
--- OUTSIDE RECORDS SUMMARY | 2017-07-09 16:44 | External Medical Summary Rpt | CCD ---
Author Author , GENE MILLS Address Unknown Phone [email or web address] Immunization Name Date Rout CVX Reac Dose [...]
--- OUTSIDE RECORDS SUMMARY | 2017-07-09 16:44 | External Medical Summary Rpt | CCD ---
Author Author , GENE MILLS Address Unknown Phone [email or web address] Immunization Name Date Rout CVX Reac Dose [...]
--- OUTSIDE RECORDS SUMMARY | 2017-07-09 16:45 | External Medical Summary Rpt ---
Author Author GENE Carla, GENE [employer] Organization [employer] Address Unknown Phone Unavailable Results Drugs identified in Urine by Screen method Observa Value Referen Units Interpr Notes Date tion ce etation Range Positive urine drug screen samples are stored for 7 days. Contact the Lab if confirmation of positives is needed. Ampheta NEGATIV <1000 ng/mL No No Jun 28 mine E informa informa 2017 [Presen tion in tion in 2:40 PM ce] in source source Urine data data by Screen method Barbitura <200 ng/mL No No Jun 28 nan informati informati 2017 2:40 [Mass/vol on in on in PM ume] in source source Urine by data data Screen method Benzodiaz 200 ng/mL ng/mL High This is Jun 28 epines an 2016 2:40 [Mass/vol UNCONFIRM PM ume] in ED Serum or result. Plasma by This Screen result is method for medicalpu rposes and/or treatment only. Cocaine <300 ng/g No No Jun 28 [Mass/vol informati informati 2017 2:40 ume] in on in on in PM Unspecifi source source ed data data specimen Methadone <300 ng/mL No No Jun 28 informati informati 2016 2:40 [Mass/vol on in on in PM ume] in source source Unspecifi data data ed specimen Opiates <300 ng/mL No No Jun 28 [Mass/vol informati informati 2016 2:40 ume] in on in on in PM Unspecifi source source ed data data specimen Phencycli <25 ng/mL No No Jun 28 dine informati informati 2016 2:40 [Mass/vol on in on in PM ume] in source source Unspecifi data data ed specimen 11-Hydr POSITIV <50 ng/mL Abnorma This is Jun 28 oxy E l an 2017 delta-9 UNCONFI 2:40 PM RMED tetrahy result. drocann This abinol result [Presen is for ce] in medical Unspeci purpose fied s specime and/or n treatme nt only. Streptococcus pyogenes Ag [Presence] in Unspecified specimen [...] data Bacteri 1+ O No No No Sep 21 a informa informa informa 2017 [Presen tion in tion in tion in 10:50 ce] in source source source PM Urine data data data sedimen t by Light microsc opy Bilirub NEGATIV NEG No No BILIRUB Sep in E informa informa IN 2017 [Presen tion in tion in CONFIRM 10:50 ce] in source source ED WITH PM Urine data data by Test ICTOTES strip T Erythro 3+ NEG No Abnorma No Sep 21 cytes informa l informa 2016 [Presen tion [...] No Sep 21 [Presen informa informa informa 2017 ce] in tion in tion in tion [...] No No Sep 21 E informa informa 2016 [Presen tion in [...] mg/dL Normal No Sep 21 [Mass/vol informati 2016 ume] in on in 10:49 PM Serum or source Plasma data Potassium 3.5 - 5.1 mmoL/L Low May 09 2016 [Moles/vo CRITICAL 10:49 PM lume] in RESULTS Serum or Plasma RESU LTS CALLED TO: MELQUIADES Davis 05/09/17 2334 Elena Silva ictninfa Sodium 136 - 145 mmoL/L Normal No Apr 21 [Moles/vo informati 2017 lume] in on in 10:49 PM Serum or source Plasma data Aspartate 15 - 37 U/L Low No May 09 inform2016 aminotran on in 10:49 PM sferase source [Enzymati data c activity/ volume] in Serum or Plasma Alanine 12 - 78 U/L Normal No May 09 aminotran inform2016 sferase on in 10:49 PM [Enzymati source c data activity/ volume] in Serum or Plasma Protein 6.4 - 8.2 gm/dL Normal No May 09 [Mass/vol informati 2017 ume] in on in 10:49 PM Serum or source Plasma data Lipase [Enzymatic activity/volume] in Serum or Plasma Observa Value Referen Units Interpr Notes Date tion ce etation Range Lipase 73 - 393 U/L Low No May 09 [Enzymati informati 2016 c on in 10:49 PM activity/ source volume] data in Serum or Plasma CBC W Auto Differential panel in Blood Observa Value Referen Units Interpr Notes Date tion ce etation Range Basophils 0 - 0.2 K/MM3 Normal No Sep inform2016 [#/volume on in 10:49 PM ] in source Blood by data Automated count Basophils 0.1 - 2.0 % Normal No Sep 21 /100 inform2016 leukocyte on in 10:49 PM s in source Blood by data Automated count Eosinophi 0.0 - 0.4 K/mm3 Normal No Sep 21 ls ati 2016 [#/volume on in 10:49 PM ] in source Blood by data Automated count Eosinophi 0.1 - % Normal No Sep 21 ls/100 12.0 inform2016 leukocyte on in 10:49 PM s in source Blood by data Automated count Granulocy 1.8 - 7.8 K/mm3 High No Sep 21 ann 2017 [#/volume on in 10:49 PM ] in source Blood by data Automated count Granulocy 37.0 - % Normal No Sep 21 ann/100 80.0 inform 2017 leukocyte on in 10:49 PM s in source Blood by data Automated count Hematocri 37.0 - % Normal No Sep 21 t [Volume 47.0 informati 2016 on in 10:49 PM Fraction] source of Blood data Hemoglobi 12.2 - g/dL Low No Sep 21 n 16.2 informati 2017 [Mass/vol on in 10:49 PM [...] Low No Sep 21 te mean 35.4 inform 2017 corpuscul on in 10:49 PM ar source hemoglobi data n concentra tion [Mass/vol ume] by Automated count Erythrocy 82.2 - fl Low No Sep 21 te mean 97.8 inform 2017 corpuscul on in 10:49 PM ar volume source [Entitic data volume] by Automated count Monocytes 0.1 - 1.0 K/mm3 Normal No Sep 21 inform 2017 [#/volume on in 10:49 PM ] in source Blood by data Automated count Monocytes 1.7 - 9.3 % Normal No Sep 21 /100 inform 2017 leukocyte on in 10:49 PM s in source Blood by data Automated count Platelet 7.4 - fl High No Sep 21 mean 10.4 inform 2017 volume on in 10:49 PM [Entitic [...] % Normal No Apr 21 te 17.5 informati 2016 distribut on in 10:49 PM ion width source [Entitic data volume] by Automated count Leukocyte 4.5 - K/MM3 Normal No Sep 21 s 13.0 informati 2016 [#/volume on in 10:49 PM ] in [...] mg/dL Normal No January 09 [Mass/vol 10.1 informati 2016 1:15 ume] in on in [...] 3.5 - 5.1 mmoL/L Normal No January 092016 1:15 [Moles/vo on in AM lume] in [...] Normal No January 09 Urine informati informati 2017 1:15 on in on in AM source [...] No No January 09 ial informa informa 2016 cells.s tion in tion in 1:15 AM [...] - 0.2 K/MM3 Normal No January 09 informati 2016 1:15 [#/volume on in AM ] in source Blood by data Automated count Basophils 0.1 - 2.0 % Normal No January 09 / informati 2016 1:15 leukocyte on in AM [...] Blood data Hemoglobi 12.2 - g/dL No No January 09 n 16.2 informati informati 2016 1:15 [Mass/vol on in on in AM ume] in source source Blood data data Lymphocyt 0.7 - 4.5 K/mm3 Normal No January 09 es informati 2016 1:15 [#/volume on in AM ] in source Unspecifi data ed specimen by Automated count Lymphocyt 10 - 50.0 % Normal No January 09 es informati 2016 [...]
--- OUTSIDE RECORDS SUMMARY | 2017-07-09 16:45 | External Medical Summary Rpt ---
Author Author GENE Carla, GENE [employer] Organization [employer] Address Unknown Phone Unavailable [...] Barbitura <200 ng/mL No No Jun 28 ann informati informati 2017 2:40 [Mass/vol on in [...]
[2017-07-09] MEDS ORDERED: XANAX 1MG TABLET1 MG PO (16:48)
[2017-07-09] MEDS ORDERED: NEURONTIN 300M300 MG PO (16:49)
[2017-07-09] MEDS ORDERED: IBUPROFEN800 MG PO (17:01)
--- NOTE | 2017-07-09 17:03 | Urgent Treatment Center Report ---
History of Present Issue Date/Time Seen by Provider 07/09/17 0808 Visit Reason Pt arrived:Wheelchair Presenting Problem:PT STATES SHE FELL OFF PORCH THIS AM AND LANDED ON HER LEFT ANKLE. ANKLE IS SWOLLEN, TENDER, UNABLE TO MOVE TOES AND PAIN IS HALF WAY UP LEG. Location if Accident:Home Onset of symptoms date/time:/ or onset unknown for:MEDICAL HX UNKNOWN Have you (or family members/close friends) recently traveled outside the [place]? N If Yes, where/when: Have you had exposure to infectious disease within the past month? TB? Other? Specify: Patient state that she accidently fell off her porch this morning and landed on her left foot/ankle. States that she thought it would be ok but has continued to get worse as the day went on. State that she is having pain and swelling in left ankle that is "shooting" up her leg State that pain is worse when she tried to bare weight on it ALLERGIES Coded Allergies: adhesive (Severe, S-BLISTERING WELTS 08/25/16) Home Medications Reported Medications Sildenafil Citrate (Sildenafil) 20 MG PO TID 30 Days Ambrisentan (Letairis) 5 MG PO DAILY 30 Days Alprazolam (Xanax 1MG) 1 MG PO BID Gabapentin (Neurontin 300MG) 300 MG PO BID History Medical History General CAD? No Angina: No [place]: No Hypertension? No Hyperlipidemia? No CHF? No DVT? No PE? No COPD? No Asthma? No Anemia? No GERD? No Gastric ulcers? No GI Bleed? No Hernia? No Thyroid Problems? No Hypothyroidism? No CVA? No Seizures? No Diabetes? No Renal Insuffiency? No UTI? No Stones? No BPH? No GB Disease: No Nephritic Syndrome? No Asplenia? No Hepatitis? No Sickle Cell Disease? No Arthritis? No Migraines? No Cataracts? No Glaucoma? No MRSA? No HIV? No TB? No Anxiety? No Depression? No Cancer? No More? Yes Additional hx: PULMONARY HYPERTENSION Immunization HX DT/Tetanus Unknown Flu Refused Pneumonia Refuses Surgical Hx Previous Surgery?Y X 1 Family History Family HX Diabetes No CAD No Hypertension Yes Hyperlipidemia No Cancer No TB No Social History Smoking Hx Smoker: Current Every Day Smoker Tobacco: Yes Type Cigarettes Packs/day < 1 Pack Alcohol Alcohol: No Review of Systems All Other Systems Reviewed and Negative Physical Exam Vital Signs Vital Signs Date Time Temp Pulse Resp B/P Pulse O2 O2 Flow FiO2 Ox Delivery Rate 07/09 1725 98.2 92 20 146/87 98 07/09 1725 98.2 92 20 146/87 98 07/09 1633 98.2 92 20 146/ 98 General Appearance normal appearance, WD/WN, no apparent distress Respiratory Status Yes: trachea midline, chest symmetrical, non tender chest. No: respiratory distress. Lung Sounds bilateral: normal breath sounds, lungs clear. Cardiovascular normal exam, regular rate/rhythm, no peripheral edema Extremities swelling, Pain and swelling in left ankle area after falling this morning and landing on ankle, mild swelling noted, good pulses good cap refill, tenderness with movement and touch Neurologic alert, normal exam, oriented x 3 Medical Decision Making LABS/Meds/Orders Pt receiving controlled substance in ED? No Results/Orders Orders Procedure Date/time Status [facility] JOINT/AREA 07/09 1657 Active XRAY/CT/US XRAY/CT/US XRAY ankle XR interpretation by reviewed by me Xray Results no fracture seen Comment will have radiologist do official reading of xray and call patient if any discrepancies between reading Departure Departure Time of Disposition 1656 Disposition DC Home or Self Care(routine) Clinical Impression Primary Impression: Ankle sprain Qualifiers: Encounter type: initial encounter Involved ligament of ankle: unspecified ligament Laterality: left Qualified Code: S93.402A - Sprain of unspecified ligament of left ankle, initial encounter Condition STABLE Referrals Jos FUNEZ,Jayant Zimmer (Family) Patient Instructions How To Perform RICE (Rest, Ice, Compress, Elevate), How to Use Crutches Additional Instructions *weight bearing as tolerated *RICE, Rest the extremity, Ice 15-20 minutes 3-4 times daily, Compress- wear the wing wrap as discussed as much as possible to help reduce swelling and pain, Elevate the extremity when at rest *Wing wrap is for support and help control swelling, use it except in the shower. Be sure that is not to tight but not to loose either *Elevate when resting *Ibuprofen 600-800mg every 6-8 hours as needed for pain an inflammation. If need something more can take Tylenol in between doses of Ibuprofen to help Immediately follow up for new or worsening of symptoms, or no noticeable improvement over the next 3-5 days Discharge Counseling Counseled pt/family regarding diagnosis, test results, medications/RX, home care, follow up needs Prescriptions Current Visit Scripts Ibuprofen (Ibuprofen 800MG) 800 MG PO QIDP PRN pain #30 TAB at 1617 care, follow up needs Prescriptions Current Visit Scripts Ibuprofen (Ibuprofen 800MG) 800 MG PO QIDP PRN pain #30 TAB
--- NOTE | 2017-07-09 17:04 | RADIOLOGY REPORT PS360 ---
ANKLE-LT-3 VIEWS HISTORY: Posttraumatic pain FELL ORDERING PHYSICIAN: CHAIM REYES APRN PATIENT AGE: 22 years COMPARISON: None FINDINGS: No fracture or dislocation. No lytic or blastic change. There is normal mineralization.. The joint spaces are well-preserved. No significant degenerative/arthritic changes. No erosive changes evident. IMPRESSION: Negative ankle, no acute finding
[2017-07-09 17:25] VITALS: BP 146/87
== END 2017-07-09 17:25 | disposition home or self-care (01) ==
LOC: UTC 16:23
PROC: 2W3RX1Z Immobilization of Left Lower Leg using Splint (ICD-10-PCS; principal; 2017-07-09)
DX: S93.402A Sprain of unspecified ligament of left ankle, initial encounter (principal); F17.210 Nicotine dependence, cigarettes, uncomplicated; W01.0XXA Fall on same level from slipping, tripping and stumbling without subsequent striking against object, initial encounter; Y92.019 Unspecified place in single-family (private) house as the place of occurrence of the external cause

== ENCOUNTER 2017-07-22 13:15 | Emergency (ER) | payer MEDICAID ==
[~2017-07-22 13:15] MED LIST changes: +IBUPROFEN800 MG PO; +NEURONTIN 300M300 MG PO; +XANAX 1MG TABLET1 MG PO
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
--- OUTSIDE RECORDS SUMMARY | 2017-07-22 13:39 | External Medical Summary Rpt | CCD ---
Author Author , GENE MILLS Address Unknown Phone [email or web address] Immunization Name Date Rout CVX Reac Dose [...]
--- OUTSIDE RECORDS SUMMARY | 2017-07-22 13:39 | External Medical Summary Rpt | CCD ---
Author Author , GENE MILLS Address Unknown Phone [email or web address] Immunization Name Date Rout CVX Reac Dose [...]
--- OUTSIDE RECORDS SUMMARY | 2017-07-22 13:40 | External Medical Summary Rpt ---
Author Author GENE Carla, GENE GetPromotd Organization [employer] Address Unknown Phone Unavailable [...]
--- OUTSIDE RECORDS SUMMARY | 2017-07-22 13:40 | External Medical Summary Rpt ---
Author Author GENE Carla, GENE Predictry Organization [employer] Address Unknown Phone Unavailable [...]
== END 2017-07-22 15:25 | disposition left against medical advice (07) ==
LOC: UTC 13:15
DX: Z53.29 Procedure and treatment not carried out because of patient's decision for other reasons (principal)